=== PATIENT | male | born 1950 | race Caucasian/White ===

== ENCOUNTER 2017-05-09 11:51 | Emergency (ER) | payer BC, MEDICARE, SELFPAY ==
[2017-05-09 12:24] VITALS: BP 152/95; PULSE 128; RESP 20; TEMP 39.3; O2SAT 96; BMI 30.7
[2017-05-09 12:32] LABS: UTC Influenza A Antigen Negative (Negative); UTC Influenza B Antigen Negative (Negative)
--- NOTE | 2017-05-09 13:13 | HMH.EDUTC ---
[facility] – [place] Disposition Clinical Impression: Influenza-like illness Disposition: Home, Self-Care Condition on Discharge: Good Instructions: DI for Influenza -- Adult Additional Instructions: * Although your flu test was negative, I really feel you symptoms and exam are consistent with the flu. Based on your other health history, Start Tamiflu today if you are going to take it. Discussed risks and possible benefits. * Lots of rest * Increase fluids, water, gatorade, powerade, pedialyte if infant/toddler/child * Monitor Temp. Tylenol every 4 hours as needed no more then 5 times a day or 4000mg in 24 hours and/or ibuprofen every 6 hours as needed no more then 3200mg in 24 hours (as long as your primary care doctor has told you that it is ok to take both) for fever/aches/pain. ER if fever no less than 101 despite tylenol and Ibuprofen. Use caution with ibuprofen, motrin, aleve, naproxen if you are on plavix. Try sticking to just tylenol if it alone helps. * OTC cold/flu/sinus medication is ok but pick one. Do not take multiple different ones as they have similar ingredients and you can overdose on cold medication. Use caution when choosing due to your health history. Probably best that you use coricidin HBP products, preferably one without a fever dampproofer. * You (or your child) are contagious until no fever, aches, chills x 24 hours without medication for symptoms. Prescriptions: Oseltamivir Phosphate [Tamiflu 75mg Capsule] 75 mg PO BID #10 cap Referrals: Provider,Referral, MD [Primary Care Provider] - (IMMEDIATELY for new or worsening symptoms, improvement followed by suddenly feeling worse OR no noticeable improvement over the next 72 hours. 911 for difficulty breathing ) Time of Disposition: 13:16 Medical Decision Making Vital Signs: 05/09/17 12:24 Temperature 102.7 F H Temperature Source Temporal Artery Scan Pulse Rate [Left Brachial] 128 H Respiratory Rate 20 Blood Pressure [Left Arm] 152/95 Blood Pressure Mean [Left Arm] 114 Blood Pressure Source [Left Arm] Automatic Cuff Blood Pressure Position [Left Arm] Sitting 02 Sat by Pulse Oximetry 96 Oxygen Delivery Method Room Air - Lab Data Lab results reviewed: Yes: I reviewed the patient's lab results. Lab Results 05/09/17 12:30: Influenza Type A Ag Negative, Influenza Type B Ag Negative - Aly Inquiry Pt receiving controlled substance: No - Reevaluation(s) Reevaluation #1: Discussed CXR to rule out PNA w/ reports of so much coughing and fever. and pt declined. They really feel this is the flu and with lungs clear, agree to follow up for new or worsening symptoms. [facility] [place] HPI - General Stated complaint: Congestion Cough Time Seen by Provider: 05/09/17 13:00 Mode of Arrival: Ambulatory Source of Information: Patient Limitations: No Limitations Description of Symptoms (Recalled from Triage Doc. by RN): c/o cough and congestion HEENT Symptoms (Recalled from RN notes): No Resp Symptoms (Recalled from RN notes): Yes (cough and congestion) Skin Symptoms (Recalled from RN notes): No MS Symptoms (Recalled from RN notes): No Functional Status (Recalled from RN notes): n/a - History of Present Illness Provider Complaint: Here w/ concerned about the flu. Started late the day before yesterday. Suddenly started to have rhinorrhea, nasal congestion, nonprod cough. Has worsened to fatigue, chills, fever. No known sick contacts. Tylenol helps. picked up Coricidin but had ibuprofen in it so she didn't give it to him. Home meds include valsartan/hctz 160mg. metoprolol ER 100mg. plavix. vit D. Vit B. ASA - Related Data Previous Rx's Medication Instructions Recorded Oseltamivir Phosphate [Tamiflu 75 mg PO BID #10 cap 05/09/17 75mg Capsule] Allergies Allergy/AdvReac Type Severity Reaction Status Date / Time azithromycin [AZITHROMYCIN] Allergy Unknown Unverified 04/13/17 15:38 morphine [MORPHINE] Allergy Unknown Unverified 04/13/17 15:38 P
--- NOTE | 2017-05-09 13:17 | ED_ITS ---
[facility] [place] Disposition Clinical Impression: Influenza-like illness Disposition: Home, Self-Care Condition on Discharge: Good Instructions: DI for Influenza -- Adult Additional Instructions: * Although your flu test was negative, I really feel you symptoms and exam are consistent with the flu. Based on your other health history, Start Tamiflu today if you are going to take it. Discussed risks and possible benefits. * Lots of rest * Increase fluids, water, gatorade, powerade, pedialyte if infant/toddler/child * Monitor Temp. Tylenol every 4 hours as needed no more then 5 times a day or 4000mg in 24 hours and/or ibuprofen every 6 hours as needed no more then 3200mg in 24 hours (as long as your primary care doctor has told you that it is ok to take both) for fever/aches/pain. ER if fever no less than 101 despite tylenol and Ibuprofen. Use caution with ibuprofen, motrin, aleve, naproxen if you are on plavix. Try sticking to just tylenol if it alone helps. * OTC cold/flu/sinus medication is ok but pick one. Do not take multiple different ones as they have similar ingredients and you can overdose on cold medication. Use caution when choosing due to your health history. Probably best that you use coricidin HBP products, preferably one without a fever manager floral. * You (or your child) are contagious until no fever, aches, chills x 24 hours without medication for symptoms. Prescriptions: Oseltamivir Phosphate [Tamiflu 75mg Capsule] 75 mg PO BID #10 cap Referrals: Provider,Referral, MD [Primary Care Provider] - (IMMEDIATELY for new or worsening symptoms, improvement followed by suddenly feeling worse OR no noticeable improvement over the next 72 hours. 911 for difficulty breathing ) Time of Disposition: 13:16 Medical Decision Making Vital Signs: 05/09/17 12:24 Temperature 102.7 F H Temperature Source Temporal Artery Scan Pulse Rate [Left Brachial] 128 H Respiratory Rate 20 Blood Pressure [Left Arm] 152/95 Blood Pressure Mean [Left Arm] 114 Blood Pressure Source [Left Arm] Automatic Cuff Blood Pressure Position [Left Arm] Sitting 02 Sat by Pulse Oximetry 96 Oxygen Delivery Method Room Air - Lab Data Lab results reviewed: Yes: I reviewed the patient's lab results. Lab Results 05/09/17 12:30: Influenza Type A Ag Negative, Influenza Type B Ag Negative - Aly Inquiry Pt receiving controlled substance: No - Reevaluation(s) Reevaluation #1: Discussed CXR to rule out PNA w/ reports of so much coughing and fever. and pt declined. They really feel this is the flu and with lungs clear, agree to follow up for new or worsening symptoms. [facility] [place] HPI - General Stated complaint: Congestion Cough Time Seen by Provider: 05/09/17 13:00 Mode of Arrival: Ambulatory Source of Information: Patient Limitations: No Limitations Description of Symptoms (Recalled from Triage Doc. by RN): c/o cough and congestion HEENT Symptoms (Recalled from RN notes): No Resp Symptoms (Recalled from RN notes): Yes (cough and congestion) Skin Symptoms (Recalled from RN notes): No MS Symptoms (Recalled from RN notes): No Functional Status (Recalled from RN notes): n/a - History of Present Illness Provider Complaint: Here w/ concerned about the flu. Started late the day before yesterday. Suddenly started to have rhinorrhea, nasal congestion, nonprod cough. Has worsened to fatigue, chills, fever. No known sick contacts. Tylenol helps. picked up Coricidin but had ibuprofen in it so she didn't give it to him. H
[2017-05-09 13:25] VITALS: BP 143/84; PULSE 110; RESP 20; TEMP 38.3; O2SAT 97
== END 2017-05-09 13:27 | disposition home or self-care (01) ==
PROVIDERS: Emergency Provider Nurse Practitioner Family
DX: J10.1 Influenza due to other identified influenza virus with other respiratory manifestations (principal); I25.10 Atherosclerotic heart disease of native coronary artery without angina pectoris; I10 Essential (primary) hypertension; I25.2 Old myocardial infarction
CPT/HCPCS: 87804; 99202

== ENCOUNTER → 2017-06-02 11:28 | Outpatient (CLI) | payer BC, MEDICARE, SELFPAY ==
--- NOTE | 2017-06-02 11:37 | XR_ITS ---
XR chest 2V HISTORY: ITS.REASON: RALES 1/4 WAY UP RT POSTERIOR CHEST WALL ORDERING PHYSICIAN: TRINO Galeano PATIENT AGE: 66 years COMPARISON: 02/02/2017 FINDINGS: The cardiomediastinal silhouette and pulmonary vascularity are within normal limits. There is mild bronchial thickening with patchy density in the right infrahilar region suggesting an area of atelectasis. There is some nodularity in the infrahilar region on the lateral view nonspecific. Coronary artery calcifications also noted. Bone plate is present over the lower cervical spine IMPRESSION:. 1. Right infrahilar atelectasis or infiltrate with bronchial thickening consistent with bronchitis. 2. Nodular opacity in the infrahilar region on the lateral view. Follow-up suggested to confirm stability. 3. Coronary artery disease
== END ==
PROVIDERS: PCP Family Medicine; Visit Provider Physician Assistant
DX: R09.89 Other specified symptoms and signs involving the circulatory and respiratory systems (principal)
CPT/HCPCS: 71046

== ENCOUNTER → 2017-09-14 14:10 | Outpatient (CLI) | payer BC, SELFPAY ==
--- NOTE | 2017-09-14 14:24 | XR_ITS ---
EXAM: XR lumbar spine min 4V HISTORY: ITS.REASON: LUMBAGO WITH BILAT SCIATICA ORDERING PHYSICIAN: Luis Swanson MD PATIENT AGE: 67 years COMPARISON: None FINDINGS: There is normal alignment. There has been prior fusion at L4-L5 with posterior ventricular screws which are in good alignment. Disc spacer is present at that level. Small anterior osteophytes are present at L2 and L3. No fracture or dislocation. There is mild degenerative disc disease at L2-L3. Facet hypertrophic changes are noted at L4-L5 and L5-S1. There is a 17 mm calcific density to the left of L2 consistent with a renal stone. IMPRESSION: 1. Postsurgical change with lumbar spondylosis. No acute finding. 2. 17 mm left renal calculus
== END ==
PROVIDERS: PCP Family Medicine; Visit Provider Family Medicine
DX: M54.42 Lumbago with sciatica, left side (principal); M54.41 Lumbago with sciatica, right side
CPT/HCPCS: 72110

== ENCOUNTER → 2018-01-21 13:26 | Outpatient (CLI) | payer BC, SELFPAY ==
--- NOTE | 2018-01-21 13:27 | CA_ITS ---
PROCEDURE: 2-D M-mode and color Doppler study INDICATIONS FOR THE TEST: Chest pain COPD Heart Murmur Tobacco Smoking Palpitations Fatigue Syncope Edema HypertensionXDiabetes Mellitus Rheumatic Fever SOB MARIE Obesity HyperlipidemiaX Family History HD Additional History ISCHEMIC CM PATIENT INFORMATION HEIGHT: 71 WEIGHT:217 GENDER: Male B/P:168/96 2-D/M-MODE INTERPRETATION: 2-D MEASUREMENTS OBSERVED VALUES IN CMS Right Ventricular Dimension (RVDd) 2.0 Interventricular Septum (Thickness)(IVsd) .9 Left Ventricular Internal Dimensions(LVIDd) 5.9 Left Ventricular Posterior Wall (Thickness)(LVPWd) .9 Aortic Root 3.5 Aortic Cusp Separation 1.8 Left Atrial Dimensions (LAD) 3.6 2D 1. Left atrium is mildly enlarged, left ventricle is mildly dilated, visually estimated ejection fraction approximately 40%, there is marked hypokinesis involving the basal septum, inferior and posterobasal wall. 2. The right atrium and right ventricle are normal size and contractility. 3. The aortic valve is minimally thickened and fibrosed. 4. The mitral valve has mitral calcification, leaflets are minimally thickened. 5. The tricuspid valve are grossly normal. 6. The pulmonic valve is poorly visualized. 7. No significant pericardial effusion noted. DOPPLER INTERROGATION: Doppler interrogation of the aortic, mitral and tricuspid valvular presence of mild mitral and tricuspid regurgitation, tricuspid regurgitant velocity is insufficient calculation right ventricular systolic pressure, diastolic parameters are inconclusive. CONCLUSION: 1. Mildly enlarged left atrium, dilated left ventricle, reduced left ventricular systolic function, visually estimated ejection fraction of 40% with multiple segmental wall motion abnormality described above, diastolic parameters are inconclusive. 2. Mild mitral and tricuspid regurgitation 3. No significant pericardial effusion noted.
== END ==
PROVIDERS: PCP Family Medicine; Visit Provider Internal Medicine
DX: I25.5 Ischemic cardiomyopathy (principal); I25.10 Atherosclerotic heart disease of native coronary artery without angina pectoris; E78.4 Other hyperlipidemia; I11.9 Hypertensive heart disease without heart failure; E66.09 Other obesity due to excess calories
CPT/HCPCS: 93306

== ENCOUNTER → 2018-10-18 11:42 | Outpatient (CLI) | payer BC, SELFPAY ==
[2018-10-18 12:09] LABS: Basophils % 0.2 % (0.1-2.0); Eosinophils # 0.2 K/mm3 (0.0-0.4); Eosinophils % 1.4 % (0.1-12.0); Hematocrit 52.7 % (42.0-52.0); Lymphocytes # 0.7 K/mm3 (0.7-4.5); Lymphocytes % 5.8 % (10-50); Mean Corpuscular HGB Conc 32.2 g/dL (31.8-35.4); Mean Corpuscular Volume 96.2 fl (80-94); Mean Platelet Volume 7.4 fl (7.4-10.4); Monocytes # 0.9 K/mm3 (0.1-1.0); Monocytes % 7.5 % (1.7-9.3); Neutrophils # 10.3 K/mm3 (1.8-7.8); Neutrophils % 85.1 % (37.0-80.0); Platelet Count 264 K/mm3 (142-424); Red Blood Count 5.48 M/mm3 (4.60-6.20); White Blood Count 12.1 K/mm3 (4.8-10.8)
[2018-10-18 12:22] LABS: MANUAL DIFFERENTIAL MANUAL DIFFERENTIAL (MANUAL DIFF)
--- NOTE | 2018-10-18 12:26 | XR_ITS ---
XR chest 2V HISTORY: ITS.REASON: COUGH ORDERING PHYSICIAN: Luis Swanson MD PATIENT AGE: 68 years COMPARISON: None FINDINGS: The cardiomediastinal silhouette and pulmonary vascularity are within normal limits. There is a several centimeter ill-defined density with subtle air bronchograms involving posterior segment right upper lobe. The remainder of the lung west are clear. There is evidence of surgery involving lower cervical spine.. No acute bony abnormalities. IMPRESSION: Superior segment right lower lobe alveolar consolidation. Correlate to rule out pneumonia.
[2018-10-18 12:38] LABS: Anion Gap 16.1 mEq/L (5-15); Blood Urea Nitrogen 23 mg/dL (7-18); Calcium 8.5 mg/dL (8.5-10.1); Carbon Dioxide 27 mmol/L (21.0-32.0); Chloride 98 mmol/L (98-107); Estimated Glomerular Filt Rate 47 ml/min (>60); GFR (African American) 56 ML/MIN (>60); Glucose 95 mg/dL (74-106); Potassium 4.1 mmoL/L (3.5-5.1); Sodium 137 mmol/L (136-145)
[2018-10-18 14:27] LABS: Lymphocytes % 4 % (10-50); Monocytes % 7 % (2-9); Neutrophils % 86 % (42-76); Platelet Estimate Normal; RBC Morphology Normal; Total Cells Counted 100
== END ==
PROVIDERS: PCP Family Medicine; Visit Provider Family Medicine
DX: R50.9 Fever, unspecified (principal); R05 Cough
CPT/HCPCS: 36415; 71046; 80048; 85007; 85025

== ENCOUNTER 2020-08-23 10:00 | Outpatient (RCR) | payer MEDICARE, SELFPAY ==
--- NOTE | 2020-07-05 11:32 | HMH.PTOPEV ---
PT Outpatient Evaluation Rehab PT Outpatient Evaluation Start: 07/05/20 11:17 Freq: Status: Active Protocol: Document 07/05/20 11:18 JACINTO (Rec: 07/05/20 11:32 JACINTO [id number]) Electronically Signed By Nic Valiente, PT 07/05/20 11:18 Outpatient Therapy Subjective History Subjective History Patient is a 69 year old male presenting to outpatient PT with reports of BLE muscular tightness/pain that has progressively gotten worse over the past 2 months. Patient reports symptoms specific to B distal hamstrings and proximal gastroc mm. Patient reports hx of multiple lumbar spine surgeries and use of statins approx 15 years ago. Other comorbidities include hx of CVA. Chief Complaint Pain,Stiff Symptom Type Sharp Symptoms Relieved By Rest/Positioning,Prescription Meds Symptoms Aggravated By Standing,Physical Activity, Walking Prior Functional Limitations None Current Functional Limitations Standing,Squatting,Recreation Activity,Walking,Stairs, Balance,Bending/Stooping Symptom Description Intermittent Level of pain today (0-10) 5 Pain scale - at its best (0-10) 0 Pain scale - at its worst (0-10) 5 Hip/Knee Eval Gait Observation General Gait Pattern Observation Wide Based Gait Assistive Device Assistive Devices None / NA Palpation Tenderness bilateral Knee Palpation Finding Tenderness Knee Palpation Overall Comment B distal HS/prox gastroc 3/4 MMT Hip Strength Reason Not Measured WFL Knee Strength Reason Not Measured WFL ROM Hip Flexion w/Knee Flexed Active Range 90 of Motion (degrees) Hip Abduction Active Range of Motion ( WNL degrees) Knee Extension Active Range of Motion ( -5 degrees) Knee Extension Passive Range of Motion ( -2 degrees) Knee Flexion Active Range of Motion ( WNL degrees) DTR Rt Patellar 2+ Lt Patellar 2+ Rt Ankle 2+ Lt Ankle 2+ Special Tests Hip Chance Test Positive Left,Positive Right Hip Piriformis Test Positive Left,Positive Right Hip 90-90 Straight Leg Raise Test Positive Left,Positive Rig
== END 2020-08-23 10:05 | disposition home or self-care (01) ==
LOC: PT 10:00
PROVIDERS: PCP Family Medicine; Visit Provider Family Medicine
DX: M79.661 Pain in right lower leg (principal); M79.662 Pain in left lower leg; M54.5 Low back pain; Z98.890 Other specified postprocedural states
CPT/HCPCS: 20561; 97010; 97014; 97110; 97140; 97163; 97164; 97530; G0283

== ENCOUNTER → 2021-06-17 09:22 | Outpatient (CLI) | payer MEDICARE, SELFPAY ==
--- NOTE | 2021-06-17 09:34 | XR_ITS ---
FINAL REPORT CLINICAL HISTORY: INJURY OF LEFT ANKLE, INITIAL ENCOUNTER; patient returning to office today FINDINGS: LEFT ANKLE Three views demonstrate no acute fracture or dislocation. The joint spaces appear normal. The visualized bony structures are well aligned. There is prominent soft tissue swelling overlying the lateral malleolus. The mortise appears intact. IMPRESSION: Prominent soft tissue swelling without acute fracture. Reviewed, Interpreted and Dictated by Alfa Murrieta MD Transcribed by Aleah Ramirez Authenticated by Alfa Murrieta MD on 06/17/2021 11:15:54 [facility]
== END ==
PROVIDERS: PCP Family Medicine; Visit Provider Family Medicine
DX: S99.912A Unspecified injury of left ankle, initial encounter (principal)
CPT/HCPCS: 73610

== ENCOUNTER 2021-12-06 11:11 | Emergency (ER) | payer MEDICARE, SELFPAY ==
--- NOTE | 2021-12-06 11:30 | HMH.EDUTC ---
[facility] – [place] Disposition Clinical Impression: Infected sebaceous cyst of skin, Bronchitis Sinusitis Qualifiers: Sinusitis location: unspecified location Chronicity: acute Recurrence: non-recurrent Qualified Code(s): J01.90 - Acute sinusitis, unspecified Disposition: Home, Self-Care Condition on Discharge: Good Instructions: DI for Sinusitis, DI for Skin Abscess Additional Instructions: Apply warm wet compresses to the affected sites three or four times per day for 15 minutes as tolerated. Take the antibiotics as directed. Follow up with your regular doctor. GO TO THE ER FOR ANY WORSENING SYMPTOMS OR CONCERNS Drink plenty of fluids. Take tylenol for pain or fever. Take the medications as directed. Follow up with your regular doctor. GO TO THE ER FOR ANY WORSENING SYMPTOMS Quarantine until you know the results of your covid-19 test. Notify your school or workplace of your results and follow their instructions regarding return to work/school. Prescriptions: Mupirocin [Bactroban 2% Ointment 22gm tube] 1 applicatio TP TID 7 Days #1 gm Transmission Status: Received by [facility] Benzonatate [Benzonatate 100mg cap] 100 mg PO TIDP PRN #30 cap PRN Reason: Cough Transmission Status: Received by [facility] methylPREDNISolone [Medrol] 4 mg PO DIRECTED 6 Days #21 packet Transmission Status: Received by [facility] Cefdinir [Omnicef 300mg Capsule] 300 mg PO BID #20 cap Transmission Status: Received by [facility] Referrals: Luis Swanson MD [Primary Care Provider] - Time of Disposition: 12:54 Medical Decision Making - Medical Records Medical records reviewed: No: I reviewed the patient's medical records. - Aly Inquiry Pt receiving controlled substance: No Vital Signs: 12/06/21 12:03 12/06/21 12:58 Temperature 98.3 F 98.3 F Temperature Source Oral Pulse Rate 84 Pulse Rate [Left] 84 Respiratory Rate 16 16 Blood Pressure 120/77 Blood Pressure [Right Arm] 120/77 Blood Pressure Mean [Right Arm] 91 02 Sat by Pulse Oximetry 96 [facility] [place] HPI - General Stated complaint: possible spider bite, sinus congestion Time Seen by Provider: 12/06/21 11:30 - History of Present Illness Provider Complaint: He is here with 2 complaints. HIs first is that he is having sinus congestion and sinus drainage for the past 5 days. He has a cough, but he denies significant chest congestion or shortness of breath. He also has a red, tender area on the back of his right shoulder near the base of his posterior neck. He states that he has a history of a cyst in that area that occasionally gets infected. He states that when that occurs he usually has to take antibiotics to get it better. - Related Data Home Medications Medication Instructions Recorded Confirmed aspirin 81 mg tablet,delayed 81 mg PO DAILY tab 07/05/17 08/27/21 release cholecalciferol (vitamin D3) 25 1,000 unit PO DAILY cap 07/05/17 08/27/21 mcg (1,000 unit) capsule metoprolol succinate 100 mg 100 mg PO DAILY tab 07/05/17 08/27/21 tablet,extended release 24 hr valsartan 80 mg tablet 80 mg PO DAILY tab 07/05/17 08/27/21 evolocumab 140 mg/mL subcutaneous 140 mg SUB-Q Q2W 07/06/17 08/27/21 pen injector Previous Rx's Medication Instructions Recorded Benzonatate [Benzonatate 100mg 100 mg PO TIDP PRN #30 cap 12/06/21 cap] Cefdinir [Omnicef 300mg Capsule] 300 mg PO BID #20 cap 12/06/21 Mupirocin [Bactroban 2% Ointment 1 applicatio TP TID 7 Days #1 gm 12/06/21 22gm tube] methylPREDNISolone [Medrol] 4 mg PO DIRECTED 6 Days #21 12/06/21 packet Allergies Allergy/AdvReac Type Severity Reaction Status Date / Time azithromycin [AZITHROMYCIN] Allergy Unknown Verified 12/06/21 12:06 morphine [MORPHINE] Allergy Unknown Verified 12/06/21 12:06 Penicillins [PENICILLINS] Allergy Unknown Verified 12/06/21 12:06 [facility] History - Hepatitis A Screen Atte
[2021-12-06 12:03] VITALS: BP 120/77; PULSE 84; RESP 16; TEMP 36.8; O2SAT 96; BMI 27.2
[2021-12-06 12:58] VITALS: BP 120/77; PULSE 84; RESP 16; TEMP 36.8
== END 2021-12-06 13:05 | disposition home or self-care (01) ==
PROVIDERS: Emergency Provider Nurse Practitioner Family; PCP Family Medicine
DX: U07.1 COVID-19 (principal); L72.0 Epidermal cyst; J01.90 Acute sinusitis, unspecified; J40 Bronchitis, not specified as acute or chronic
CPT/HCPCS: 10060; 87070; 87077; 87186; 87205; 99213; C9803; G0463; U0003; U0005

== ENCOUNTER → 2022-09-01 11:14 | Outpatient (POV) | payer MEDICARE, SELFPAY | PROVIDERS: Visit Provider Dermatology | DX: Z00.00 Encounter for general adult medical examination without abnormal findings (principal) ==

== ENCOUNTER → 2022-09-30 07:30 | Outpatient (CLI) | payer MEDICARE, SELFPAY ==
--- NOTE | 2022-09-30 07:32 | MR_ITS ---
FINAL REPORT TECHNIQUE: Multiplanar MR without gadolinium enhancement CLINICAL HISTORY: LUMBAGO WITH SCIATICA, SPONDYLOSIS, DDD HX MULTIPLE BACK SURGERIES, BACK PAIN, TROUBLE WALKING FINDINGS: Sagittal images show normal vertebral height. There is mild retrolisthesis of L5 on S1. Marrow edema is mildly heterogeneous in a pattern suggestive of red marrow predominance which can be seen with smoking or polycythemia most commonly. There is probable severe hydronephrosis and atrophy of the visualized left kidney. CT may be considered if not previously evaluated. T12-L1: No significant spinal canal stenosis or neural foraminal narrowing. L1-2: No significant spinal canal stenosis or neural foraminal narrowing. L2-3: Mild annular disc bulge with moderate facet arthropathy. No significant canal stenosis or neural foraminal narrowing. L3-4: Moderate annular disc bulge and facet arthropathy. Moderate central canal stenosis and moderate bilateral neural foraminal narrowing. L4-5: Postoperative changes from left laminotomy and fusion. No significant central canal stenosis. Mild bilateral neural foraminal narrowing. L5-S1: Minimal annular disc bulge with mild facet arthropathy. No significant central canal stenosis. Moderate bilateral neural foraminal narrowing. IMPRESSION: Moderate diffuse degenerative changes with mild central canal stenosis at L3-4 and multilevel neural foraminal narrowing. Reviewed, Interpreted and Dictated by Roney Miller MD Transcribed by Dori Caldwell Authenticated and [facility]
== END ==
PROVIDERS: PCP Family Medicine; Visit Provider Family Medicine
DX: M51.36 Other intervertebral disc degeneration, lumbar region (principal); M47.816 Spondylosis without myelopathy or radiculopathy, lumbar region; M54.41 Lumbago with sciatica, right side; M54.42 Lumbago with sciatica, left side
CPT/HCPCS: 72148; 76376

== ENCOUNTER 2022-10-10 04:21 | Emergency (ER) | payer MEDICARE, SELFPAY ==
[2022-10-10] VITALS (7 sets, daily range): BP systolic 108–175; BP diastolic 59–109; PULSE 74–87; RESP 16–20; TEMP 36.7; O2SAT 94–99; BMI 30.7
--- NOTE | 2022-10-10 04:36 | CT_ITS ---
PROCEDURE INFORMATION: Exam: CT Abdomen And Pelvis With Contrast Exam date and time: 10/10/2022 5:16 AM Age: 72 years old Clinical indication: Injury or trauma; Fall TECHNIQUE: Imaging protocol: Computed tomography of the abdomen and pelvis with contrast. Radiation optimization: All CT scans at this facility use at least one of these dose optimization techniques: automated exposure control; mA and/or kV adjustment per patient size (includes targeted exams where dose is matched to clinical indication); or iterative reconstruction. Contrast material: ISOVUE; Contrast volume: 75 ml; Contrast route: IV; REPORTING DATA: Count of CT and Cardiac NM exams in prior 12 months: This patient has received 0 known CTs and 0 known cardiac nuclear medicine studies in the 12 months prior to the current study. COMPARISON: ABDPELW/O CT ABD PELVIS W/O CONTRAST 09/25/2016 9:06 AM FINDINGS: Coronary arteries: Coronary artery calcifications. Liver: No acute abnormality. Liver appears intact. Gallbladder and bile ducts: No acute abnormality. No calcified stones. No ductal dilation. Pancreas: No acute abnormality. No ductal dilation. Spleen: No acute abnormality. Spleen appears intact. Punctate splenic calcified granulomas. Adrenal glands: No significant or acute abnormality. Kidneys and ureters: Kidneys appear intact. Left renal cortical atrophy, scarring and nephrolithiasis with severe hydronephrosis secondary to a 17 x 10 mm calculus and adjacent 7 x 4 mm calculus at the left UPJ. Moderate right hydronephrosis secondary to a 6 x 5 mm calculus and adjacent tiny 4 mm calculus in the mid right ureter as well as additional tiny 3 mm distal ureteral calculus just above the right UVJ and 4 mm calculus at the right distal ureteral orifice. Redemonstrated incidental simple appearing bilateral renal cysts including large 9.7 cm lateral left renal lower pole cyst. Approximately 3.2 cm intermediate density posterior right renal cortical lesion, previously 2.3 cm. Stomach and bowel: No significant large or small bowel distention. No evidence of diverticulitis. Appendix: Grossly normal nondilated visualized appendix. Intraperitoneal space: No significant fluid collection. No free air. Vasculature: Atherosclerotic vascular calcification. No aortic aneurysm. Lymph nodes: No enlarged lymph nodes. Urinary bladder: Small calculus protrudes into the right bladder base. Nondistended urinary bladder. Reproductive: Mildly prominent prostate. Bones/joints: No acute osseous abnormality. Previous L4-L5 discectomy and fusion with metallic hardware in place. Soft tissues: No significant soft tissue abnormalities. Incidental small lower anterior left chest wall subcutaneous cyst. IMPRESSION: 1. No evidence of acute traumatic injury. 2. Left renal cortical atrophy, scarring and nephrolithiasis with severe hydronephrosis secondary to a 17 x 10 mm calculus and adjacent 7 x 4 mm calculus at the left UPJ. 3. Moderate right hydronephrosis secondary to a 6 x 5 mm calculus and adjacent tiny 4 mm calculus in the mid right ureter as well as additional tiny 3 mm distal ureteral calculus just above the right UVJ and 4 mm calculus at the right distal ureteral orifice. 4. Approximately 3.2 cm intermediate density posterior right renal cortical lesion, previously 2.3 cm. Differential diagnosis includes complex or hyperdense cyst versus indolent right renal mass. Consider nonemergent follow-up renal ultrasound or MRI for further evaluation. 5. Atherosclerotic vascular disease including coronary artery disease.
--- NOTE | 2022-10-10 04:36 | CT_ITS ---
PROCEDURE INFORMATION: Exam: CT Cervical Spine Without Contrast Exam date and time: 10/10/2022 5:05 AM Age: 72 years old Clinical indication: Injury or trauma; Fall TECHNIQUE: Imaging protocol: Computed tomography of the cervical spine without contrast. Radiation optimization: All CT scans at this facility use at least one of these dose optimization techniques: automated exposure control; mA and/or kV adjustment per patient size (includes targeted exams where dose is matched to clinical indication); or iterative reconstruction. REPORTING DATA: Count of CT and Cardiac NM exams in prior 12 months: This patient has received 0 known CTs and 0 known cardiac nuclear medicine studies in the 12 months prior to the current study. COMPARISON: CR (CHEST PA, CHEST, CHEST PA) 10/18/2018 12:31 PM FINDINGS: Bones/joints: Previous C6 corpectomy and fusion with C6 graft material and anterior plate and screws in place C5-C7. No evidence of acute fracture or subluxation. Multilevel spondylosis with degenerative endplate spurring. Bilateral facet, uncovertebral and atlantoaxial joint arthrosis with marginal hypertrophic bony spurring. 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 Multilevel findings: Multilevel disc space narrowing and posterior disc osteophyte complexes. Dpvh-of-txjgtthp spinal stenosis and moderate to severe multilevel bilateral foraminal stenosis. Lungs: No significant or acute abnormality of the visualized lung apices. Soft tissues: No significant soft tissue abnormalities. IMPRESSION: 1. No evidence of acute fracture or subluxation. 2. Multilevel spondylosis, diffuse cervical arthrosis and degenerative changes as described with previous C6 corpectomy and fusion.
--- NOTE | 2022-10-10 04:36 | CT_ITS ---
PROCEDURE INFORMATION: Exam: CT Thoracic Spine Without Contrast Exam date and time: 10/10/2022 5:08 AM Age: 72 years old Clinical indication: Injury or trauma; Fall TECHNIQUE: Imaging protocol: Computed tomography of the thoracic spine without contrast. Radiation optimization: All CT scans at this facility use at least one of these dose optimization techniques: automated exposure control; mA and/or kV adjustment per patient size (includes targeted exams where dose is matched to clinical indication); or iterative reconstruction. REPORTING DATA: Count of CT and Cardiac NM exams in prior 12 months: This patient has received 0 known CTs and 0 known cardiac nuclear medicine studies in the 12 months prior to the current study. COMPARISON: CT CERVICAL SPINE WO CON 10/10/2022 5:05 AM FINDINGS: Bones/joints: No evidence of acute fracture or subluxation. Multilevel small mid and lower thoracic endplate indentations consistent with Schmorl's nodes with otherwise grossly normal vertebral body height. 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 Mild thoracic kyphosis, spondylosis and degenerative bony changes. Lower cervical spine postsurgical changes as previously described. Discs/Spinal canal/Neural foramina: No acute findings. No significant spinal stenosis. Soft tissues: No significant soft tissue abnormalities. IMPRESSION: 1. No evidence of acute fracture or subluxation. 2. 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 3. Mild thoracic kyphosis, spondylosis and degenerative bony changes.
--- NOTE | 2022-10-10 04:36 | CT_ITS ---
PROCEDURE INFORMATION: Exam: CT Lumbar Spine Without Contrast Exam date and time: 10/10/2022 5:12 AM Age: 72 years old Clinical indication: Injury or trauma; Fall TECHNIQUE: Imaging protocol: Computed tomography of the lumbar spine without contrast. Radiation optimization: All CT scans at this facility use at least one of these dose optimization techniques: automated exposure control; mA and/or kV adjustment per patient size (includes targeted exams where dose is matched to clinical indication); or iterative reconstruction. REPORTING DATA: Count of CT and Cardiac NM exams in prior 12 months: This patient has received 0 known CTs and 0 known cardiac nuclear medicine studies in the 12 months prior to the current study. COMPARISON: MR LUMBAR SPINE WO CON 09/30/2022 7:30 AM FINDINGS: Bones/joints: No evidence of acute fracture or subluxation. Grossly normal lumbar alignment and vertebral body height. Previous L4-L5 left laminectomy, discectomy and anterior and posterior fusion with posterior fusion rods and pedicle screws in place. Multilevel spondylosis with degenerative endplate spurring. Lumbar spine bilateral facet hypertrophy. Multilevel findings: L3-L4 disc space narrowing, diffuse disc bulging and bilateral facet hypertrophy with moderate to severe spinal stenosis. Fused L4-L5 disc level. Soft tissues: No significant soft tissue abnormalities. Other findings: Abdomen and pelvis findings reported separately. IMPRESSION: 1. No evidence of acute fracture or subluxation. 2. Multilevel spondylosis and lower lumbar degenerative and postsurgical changes as described with previous L4-L5 discectomy and fusion.
[2022-10-10 04:48] LABS: Chloride 106 mmol/L (98-107); Potassium 4.1 mmoL/L (3.5-5.1); Sodium 141 mmol/L (136-145)
--- NOTE | 2022-10-10 04:48 | PC.NURSE ---
Pt provided with urinal and advised to give urine sample if able.
[2022-10-10 04:50] LABS: Amylase 71 U/L (30-110); Basophils % 0.3 % (0.1-2.0); Blood Urea Nitrogen 18 mg/dl (9-20); Creatinine Clearance Estimated 61 mL/min (50-200); Eosinophils % 7.3 % (0.1-12.0); Estimated Glomerular Filt Rate 46 ml/min (>60); GFR (African American) 56 ML/MIN (>60); Hematocrit 54.5 % (42.0-52.0); Hemoglobin 17.6 g/dL (14.1-18.0); Lipase 53 U/L (23-300); Lymphocytes # 1.8 K/mm3 (0.7-4.5); Lymphocytes % 13.2 % (10-50); Mean Corpuscular HGB Conc 32.3 g/dL (31.8-35.4); Mean Corpuscular Hemoglobin 30.9 pg (27.0-31.2); Mean Corpuscular Volume 95.8 fl (80-94); Mean Platelet Volume 8.1 fl (7.4-10.4); Monocytes # 0.9 K/mm3 (0.1-1.0); Monocytes % 6.4 % (1.7-9.3); Neutrophils # 9.9 K/mm3 (1.8-7.8); Neutrophils % 72.9 % (37.0-80.0); Platelet Count 266 K/mm3 (142-424); Red Blood Count 5.68 M/mm3 (4.60-6.20); Red Cell Distribution Width 13.6 % (11.5-17.5); White Blood Count 13.5 K/mm3 (4.8-10.8)
[2022-10-10 04:51] LABS: Alanine Aminotransferase 32 U/L (12-78); Albumin Level 4.2 g/dl (3.5-5.0); Albumin/Globulin Ratio 1.5 (1.1-1.8); Alkaline Phosphatase 124 U/L (38-126); Aspartate Amino Transferase 46 U/L (17-59); Bilirubin,Total 0.7 mg/dl (0.2-1.3); Globulin 2.8 g/dL (1.3-3.2); Glucose 140 mg/dl (74-100)
[2022-10-10 04:55] LABS: Anion Gap 17.1 mEq/L (5-15); Carbon Dioxide 22 mmol/L (22.0-30.0)
--- NOTE | 2022-10-10 04:57 | PC.NURSE ---
Pt gone to RAD via stretcher
--- NOTE | 2022-10-10 05:08 | PC.NURSE ---
Pt returned from RAD
--- NOTE | 2022-10-10 06:31 | XR_ITS ---
PROCEDURE INFORMATION: Exam: XR Pelvis Exam date and time: 10/10/2022 6:34 AM Age: 72 years old Clinical indication: Injury or trauma; Fall; Blunt trauma (contusions or hematomas); Does not apply; Pelvic region TECHNIQUE: Imaging protocol: Radiologic exam of the pelvis. Views: 1 or 2 view. COMPARISON: CT ABDOMEN PELVIS W CON 10/10/2022 5:16 AM FINDINGS: Bones/joints: No acute osseous abnormality. No evidence of acute fracture or dislocation. Lumbar spine findings reported separately. Soft tissues: No significant soft tissue abnormalities. IMPRESSION: No evidence of acute fracture or dislocation.
--- NOTE | 2022-10-10 06:31 | XR_ITS ---
PROCEDURE INFORMATION: Exam: XR Chest Exam date and time: 10/10/2022 6:34 AM Age: 72 years old Clinical indication: Injury or trauma; Fall; Blunt trauma (contusions or hematomas) TECHNIQUE: Imaging protocol: Radiologic exam of the chest. Views: 1 view. COMPARISON: CR (CHEST PA, CHEST, CHEST PA) 10/18/2018 12:31 PM FINDINGS: Lungs: No significant or acute findings. No consolidation. Pleural spaces: No significant costophrenic angle blunting. No pneumothorax. Heart/Mediastinum: Heart size is normal. Vasculature: Mild atherosclerotic tortuosity of the thoracic aorta. Bones/joints: Previous lower cervical spine fusion with metallic hardware in place. IMPRESSION: No acute abnormality demonstrated.
--- NOTE | 2022-10-10 06:33 | PC.NURSE ---
Dr. Kumar at
--- NOTE | 2022-10-10 06:37 | [facility].EDFALL ---
Discharge Plan Disposition Patient Disposition: Home, Self-Care Chief Complaint: Fall Prescriptions Prescriptions: No Action valsartan [Diovan] 80 mg tablet 80 mg PO DAILY metoprolol succinate [Toprol XL] 100 mg tablet extended release 24 hr 100 mg PO DAILY cholecalciferol (vitamin D3) 1,000 unit capsule 1,000 unit PO DAILY evolocumab [Repatha SureClick] 140 mg/mL pen injector 140 mg SUB-Q Q2W clopidogrel 75 mg tablet 75 mg PO DAILY gabapentin 300 mg capsule 300 mg PO BID mupirocin 22 GM ointment 1 applicatio TP TID 7 Days Qty: 1 0RF Referrals Follow up/Referrals: Luis Swanson MD [Primary Care Provider] - See instructions Jaren Goddard MD [Referring] - See instructions Clinical Impressions Clinical Impression: Cervical sprain, Lumbar back sprain, Hydronephrosis Instructions Patient Instructions: DI for Low Back Pain, DI for Kidney Stones Discharge ED Provider: José (ED)Naseem HPI General Chief Complaint: Fall Stated Complaint: AO 10/10/22 0100 lower back pain,fell down steps Time Seen by Provider: 10/10/22 06:00 Mode of Arrival: Wheelchair Source of Information: Patient, Spouse and Medical Record Limitations: No Limitations Description of Symptoms (Recalled from ER Triage Doc. by RN): pt states he fell down about five outdoor steps on 10/09 around 1300. pt reports he was tugging on a water hose and lost his balance causing the fall. pt denies LOC. pt c/o R lower back pain 12/03. pt states he is on plavix. History of Present Illness HPI Narrative: pt slipped and fell yesterday and has assoc back pain- no loc and pt has hx of back problems - recent mri of back - has hx of renal stones complaint: fall Onset (ago): day(s) Fall from: standing Place fall occurred: home Loss of consciousness: none Prolonged down time: no Symptoms prior to fall: none Context: tripped/slipped Location of injury: neck and back Severity: moderate Associated symptoms (after fall): denies Related Data Home Medications Medication Instructions Recorded Confirmed cholecalciferol (vitamin D3) 25 1,000 unit PO DAILY 07/05/17 10/06/22 mcg (1,000 unit) capsule metoprolol succinate 100 mg 100 mg PO DAILY 07/05/17 10/06/22 tablet,extended release 24 hr (Toprol XL) valsartan 80 mg tablet (Diovan) 80 mg PO DAILY 07/05/17 10/06/22 evolocumab 140 mg/mL subcutaneous 140 mg SQ Q2W 07/06/17 10/06/22 pen injector (Anthony Sidhu) clopidogrel 75 mg tablet 75 mg PO DAILY 10/06/22 10/06/22 gabapentin 300 mg capsule 300 mg PO BID 10/06/22 10/06/22 Previous Rx's Medication Instructions Recorded mupirocin 2 % topical ointment 1 applicatio topical TID 7 days #1 12/06/21 g Allergies Allergy/AdvReac Type Severity Reaction Status Date / Time azithromycin [AZITHROMYCIN] Allergy Unknown Verified 10/10/22 04:50 Penicillins [PENICILLINS] Allergy Unknown Verified 10/10/22 04:50 cefdinir Allergy Verified 10/10/22 04:50 morphine [MORPHINE] AdvReac Unknown Nausea Verified 10/10/22 04:50 PFSH PFSH Disclaimer: The information contained in this section may have been updated after the patient was seen, as this information can be updated by other users. Medical History Coronary arteriosclerosis Hyperlipidemia Hypertensive heart disease without heart failure Obesity Social History Smoking Status: Never smoker alcohol intake: never substance use type: denies use current occupational status: employed Travel in the last 8 weeks: Inside the [place] ROS Obtained: Yes All systems reviewed & no additional complaints except as documented Physical Exam General General appearance: alert Head Head exam: normocephalic Eye Eye exam: Present PERRL and EOMI ENT ENT exam: Present mucous membranes moist Neck Neck exam: Present trachea midline and ten
--- NOTE | 2022-10-10 06:39 | PC.NURSE ---
[facility] At [facility]
--- NOTE | 2022-10-10 06:59 | PC.NURSE ---
Pt still unable to provide urine sample at this time
--- NOTE | 2022-10-10 07:21 | PC.NURSE ---
verbal order from MD for Tylenol #3 take home pack to be sent home with patient.
[2022-10-10 07:25] LABS: Microscopic, Urine URINE MICROSCOPIC (MICROSCOPIC)
[2022-10-10 07:44] LABS: Appearance,Urine CLOUDY (Clear); Bilirubin,Urine Negative (Negative); Blood, Urine 3+ (Negative); Color,Urine YELLOW (Yellow); Glucose,Urine (UA) Negative (Negative); Ketones,Urine Negative (Negative); Leukocyte Esterase,Urine 1+ (Negative); Nitrate,Urine Negative (Negative); PH,Urine 5.5 (5.0-8.5); Protein,Urine 1+ (Negative); Specific Gravity, Urine 1.025 (1.005-1.030)
[2022-10-10 07:46] LABS: Bacteria,Urine 1+ /lpf; RBC,Urine TNTC #/hpf (0-3)
== END 2022-10-10 07:51 | disposition home or self-care (01) ==
PROVIDERS: Emergency Provider Emergency Medicine; PCP Family Medicine
DX: M54.50 Low back pain, unspecified (principal); I25.10 Atherosclerotic heart disease of native coronary artery without angina pectoris; I11.9 Hypertensive heart disease without heart failure; E78.5 Hyperlipidemia, unspecified; E66.9 Obesity, unspecified; W10.9XXA Fall (on) (from) unspecified stairs and steps, initial encounter; Z79.02 Long term (current) use of antithrombotics/antiplatelets
CPT/HCPCS: 71045; 72125; 72128; 72131; 72170; 74177; 80053; 81001; 82150; 83690; 85025; 87086; 96361; 96374; 96375; 99285; J2405; Q9967

== ENCOUNTER → 2022-10-30 07:49 | Outpatient (CLI) | payer MEDICARE, SELFPAY | PROVIDERS: PCP Family Medicine; Visit Provider Physician Assistant | DX: I25.10 Atherosclerotic heart disease of native coronary artery without angina pectoris (principal); E66.9 Obesity, unspecified; E78.5 Hyperlipidemia, unspecified; I11.9 Hypertensive heart disease without heart failure; Z01.810 Encounter for preprocedural cardiovascular examination | CPT/HCPCS: 93306 ==

== ENCOUNTER → 2023-01-18 09:58 | Outpatient (POV) | payer MEDICARE, SELFPAY ==
[2023-01-18 11:04] VITALS: BP 128/69; PULSE 76; RESP 18; O2SAT 96; BMI 27.8
--- NOTE | 2023-01-18 11:16 | EXP.PAIN.OV ---
HPI Data of Consult Patient: new to practice Consult date: 01/18/23 Requesting Physician: Keysha Gibbons APRN Primary Care Provider: Luis Swanson MD Consult Narrative Reason for consult: Bilateral leg pain History of present illness: Mr. Greer is a 72 year old male who presents today as a new patient. He is a referral from Dr. Swanson's office. Today he rates his pain a 6 out of 10. Patient states all his pain is related to his bilateral lower extremities. Patient does describe this as a constant achy sensation that is worse with increased activity. He does state this is been going on for years and progressively worsened over time. He does state that his pain is made worse when he is up walking and that he has no pain when he sitting. Patient does state he frequently has to lean over things such as the sink or a shopping cart to find some relief. Patient does state that he has had 3 prior back surgeries including one on her cervical spine and 2 at his lumbar spine including a laminectomy. Patient does also state that he has recently had 3 different kidney surgeries related to 13 kidney stones. Patient does state that his leg pain interferes with his ability perform activities of daily living such as cooking and cleaning. He does use a cane to help with ambulation. Patient has tried undl-gxp-[id number] medications such as Tylenol along with heat and ice and topicals with minimal improvement. Patient is currently managed with gabapentin 300 mg twice a day and in the past has also tried tramadol 50 mg his Aly is [id number]. Its been reviewed and appropriate. Patient does have a history of heart issues including A-fib and is on Plavix daily. Patient does state that he has had 5 heart stents placed in the past. Patient does state that recently where he has had the kidney surgeries he did have to come off of his Plavix for 5 days. CC: Keysha Gibbons APRN [facility] Disclaimer: The information contained in this section may have been updated after the patient was seen, as this information can be updated by other users. Medical History (Updated 01/18/23 @ 11:20 by Keysha Gibbons APRN) Coronary arteriosclerosis Encounter for pre-operative cardiovascular clearance Hyperlipidemia Hypertensive heart disease without heart failure LV dysfunction Obesity Social History (Updated 01/18/23 @ 11:05 by Cathy Nicolas RN) Smoking Status: Never smoker alcohol intake: never substance use type: denies use current occupational status: employed Travel in the last 8 weeks: Inside the [place] Review of Systems Review of Systems Review of systems:: pertinent systems reviewed and negative unless documented below Review of systems (narrative): Review of Systems: General: No recent weight changes, no fever, no sleep disturbances Respiratory: No cough, no shortness of air, no recurring pulmonary infections Cardiovascular/peripheral vascular: No chest pain, no palpitations, no edema, no shortness of breath Gastrointestinal: No new onset incontinence, normal bowel movements reported Genitourinary: No new onset incontinence Musculoskeletal: Bilateral leg pain Psychiatric: [Normal mood/affect] Neurological: [Denies weakness in extremities], [denies balance issues] Meds Home Medications and Allergies Home Medications Medication Instructions Recorded Confirmed Type cholecalciferol (vitamin D3) 25 1,000 unit PO DAILY 07/05/17 10/29/22 History mcg (1,000 unit) capsule metoprolol succinate 100 mg 100 mg PO DAILY 07/05/17 10/29/22 History tablet,extended release 24 hr (Toprol XL) valsartan 80 mg tablet (Diovan) 80 mg PO DAILY 07/05/17 10/29/22 History evolocumab 140 mg/mL subcutaneous 140 mg SQ Q2W 07/06/17 10/29/22 History pen injector (Anthony Sidhu) mupirocin 2 % topical ointment 1 applicatio topical TID 7 days #1 12/06/21 10/29/22 Rx g clopidogrel 75 mg tablet 75 mg PO DAILY 10/06/22 10/29/22 History
== END ==
PROVIDERS: PCP Family Medicine; Visit Provider Nurse Practitioner Family
DX: M79.604 Pain in right leg (principal); M79.605 Pain in left leg; M48.062 Spinal stenosis, lumbar region with neurogenic claudication; M96.1 Postlaminectomy syndrome, not elsewhere classified
CPT/HCPCS: 99202; G0463

== ENCOUNTER → 2023-01-22 10:28 | Outpatient (CLI) | payer MEDICARE, SELFPAY ==
[2023-01-22 11:48] LABS: Blood Urea Nitrogen 29 mg/dl (9-20); Calcium 9.1 mg/dl (8.4-10.2); Carbon Dioxide 27 mmol/L (22.0-30.0); Chloride 105 mmol/L (98-107); Estimated Glomerular Filt Rate 50 ml/min (>60); GFR (African American) 60 ML/MIN (>60); Glucose 167 mg/dl (74-100); Sodium 142 mmol/L (136-145)
== END ==
PROVIDERS: PCP Family Medicine; Visit Provider Family Medicine
DX: E87.5 Hyperkalemia (principal)
CPT/HCPCS: 36415; 80048

== ENCOUNTER → 2023-02-08 14:11 | Outpatient (POV) | payer MEDICARE, SELFPAY ==
--- NOTE | 2023-02-08 15:30 | EXP.PAIN.SOA ---
[facility] Pain Management SOAP Note Subjective:: Patient is a pleasant 72-year-old male who presents today for insurance denial. We are currently treating the patient for degenerative disc disease of lumbar spine with lumbar radiculopathy symptoms, spinal stenosis with neurogenic claudication symptoms, lumbar postlaminectomy syndrome. Today he rates his pain an 8 out of 10. Patient denies any new trauma or injury. He denies any change location or type of pain he experiences. Patient states he continues to have low back pain that radiates into his bilateral lower extremities. He does describe this as an aching, throbbing sensation with numbness and tingling and weakness into his legs. He does state the pain interferes with his ability perform activities of daily living such as cooking and cleaning. Patient has tried recent physical therapy from June through August that did also include dry needling and a stretching machine with minimal improvement. Patient has continued to do at home exercising and stretching for longer than 12 weeks using at home exercises along with an inversion table. Patient has had 3 prior back surgeries with one on his cervical spine and 2 of his lumbar spine including a laminectomy. Patient has recently had 13 different kidney surgeries and that he is scheduled for a follow-up with his urologist on the of this month. Patient is currently managed with gabapentin 300 mg twice a day and tramadol 50 mg in the past. His Aly has been reviewed and is appropriate. Review of Systems: General: No recent weight changes, no fever, no sleep disturbances Respiratory: No cough, no shortness of air, no recurring pulmonary infections Cardiovascular/peripheral vascular: No chest pain, no palpitations, no edema, no shortness of breath Gastrointestinal: No new onset incontinence, normal bowel movements reported Genitourinary: No new onset incontinence Musculoskeletal: Low back pain, bilateral leg pain Psychiatric: [Normal mood/affect] Neurological: [Denies weakness in extremities], [denies balance issues] Objective:: Physical Exam: General: Alert and oriented x3, no acute distress, pleasant and cooperative Lungs: Respirations even and unlabored, symmetrical chest expansion Eyes: PERRL Musculoskeletal: Flexion and extension of lumbar [spine] somewhat guarded secondary to pain, [antalgic gait noted] Neurological: Speech clear, no gross sensory deficit Assessment:: Degenerative disc disease of lumbar spine with lumbar radiculopathy symptoms, spinal stenosis with neurogenic claudication symptoms, lumbar postlaminectomy syndrome Plan:: Patient continues to experience significant pain in his low back and legs with limited range of motion. Patient has tried and failed conservative therapy such as oral medications, heat and ice, topicals, physical therapy, at home stretching and exercise for longer than 12 weeks, previous failed back surgery including lumbar postlaminectomy syndrome. I have discussed with the patient that he may benefit from lumbar epidural steroid injection. Risk and benefits were discussed with the patient and he would like to proceed forward with this plan of care. Patient did have multilevel degenerative disc disease with facet hypertrophy and moderate to severe spinal stenosis noted at his L3-L4 vertebral body. Patient is currently on blood thinners and will have to stop this medication 7 days prior to this injection. We will schedule the patient for an LESI L3-L4. Patient has been instructed to contact the clinic with any concerns before the next appointment. Dr. Ramirez has reviewed this note and agrees with this plan of care. This note was dictated using voice recognition software and make contain errors or omissions. [facility] Disclaimer: The information contained in this section may have been updated after the patient was seen, as this information can be updated by other users. Medical History (Updated 01/18/23 @ 11:20 by Keysha
[2023-02-08 15:31] VITALS: BP 155/91; PULSE 68; RESP 18; O2SAT 96; BMI 27.2
== END ==
PROVIDERS: PCP Family Medicine; Visit Provider Nurse Practitioner Family
DX: M51.16 Intervertebral disc disorders with radiculopathy, lumbar region (principal); M48.062 Spinal stenosis, lumbar region with neurogenic claudication; M96.1 Postlaminectomy syndrome, not elsewhere classified
CPT/HCPCS: 99212; G0463

== ENCOUNTER 2023-03-23 10:11 | Day surgery (SDC) | payer MEDICARE, SELFPAY ==
[2023-03-23 10:20] VITALS: BP 123/73; PULSE 60; RESP 16; TEMP 36.7; O2SAT 99; BMI 28.1
[2023-03-23 10:35] VITALS: BP 131/70; PULSE 59; RESP 18; O2SAT 96
[2023-03-23 10:40] VITALS: BP 158/77; PULSE 56; RESP 16; O2SAT 99
--- NOTE | 2023-03-23 10:42 | EXP.PAIN.PRO ---
Procedure Date: 03/23/23 Time: 10:20 Anesthesiologist:: Conor Cordon CRNA Complications:: None Pre-procedure Diagnosis:: Degenerative disc lumbar spine multilevels. Lumbar radiculopathy. Lumbar postlaminectomy syndrome. Post-procedure Diagnosis:: Same. Indications for Procedure:: Patient is a very pleasant 72-year-old male that comes our clinic today for lumbar epidural steroid injection to L3-4 level. Patient is status post L4 3 4, L4-5 lumbar fusion. Patient reports low back pain as well as bilateral hip and leg radicular symptoms at times. He rates his pain 7/10. Procedure Details:: Procedure: Lumbar epidural steroid injection under fluoroscopy Informed consent was obtained and the risks and benefits of the procedure were explained to the patient. The patient was taken to the procedure room and noninvasive monitors placed, including noninvasive blood pressure cuff and pulse oximeter. The back was viewed using C-arm Fluoroscopy and prepped using Chloraprep as a cleansing solution and the L3-4 interspace was palpated. Skin and subcutaneous tissues were anesthetized using lidocaine 1.5% and a 25-gauge needle. After this, an 18-gauge Touhy epidural needle was placed into the L3-4 interspace and advanced using fluoroscopic guidance and loss of resistance to air until the epidural space was encountered. After confirmation of needle placement in the epidural space, with dye, a solution containing normal saline, 3 mL and Depo-Medrol 80 mg were incrementally injected into the lumbar epidural space. The patient tolerated the procedure well with no complications. The patient was observed in the Pain Clinic and then discharged home neurologically intact. Plan and Disposition:: Patient was discharged without incident.
== END 2023-03-23 10:40 | disposition home or self-care (01) ==
PROVIDERS: PCP Family Medicine; Visit Provider Nurse Anesthetist, Certified Registered
DX: M51.16 Intervertebral disc disorders with radiculopathy, lumbar region (principal); M96.1 Postlaminectomy syndrome, not elsewhere classified
CPT/HCPCS: 62323; J1040

== ENCOUNTER → 2023-04-07 10:36 | Outpatient (POV) | payer MEDICARE, SELFPAY ==
[2023-04-07 10:57] VITALS: BP 136/76; PULSE 58; RESP 18; O2SAT 98; BMI 61.7
--- NOTE | 2023-04-07 10:59 | EXP.PAIN.SOA ---
[facility] Pain Management SOAP Note Subjective:: Patient is a pleasant 72-year-old male who presents today for follow-up of lumbar epidural steroid injection L3 through L4 on 03/23/2023. We are currently treating the patient for degenerative disc disease of lumbar spine with lumbar radiculopathy symptoms, lumbar spinal stenosis with neurogenic claudication symptoms, lumbar postlaminectomy syndrome. Today he rates his pain an 8 out of 10. Patient denies any new trauma or injury. He does state that he had at least 50% improvement following this injection and that he did notice significant relief in his upper leg symptoms. He stated that he was able to increase his activity and walk straighter following this injection however he is starting to experience worsening pain and radiating symptoms into the lower legs. Patient states that he still has relief in his upper thighs. He does state this is an aching, throbbing sensation with numbness and tingling in his lower calves and legs. He states the pain does interfere with his ability perform activities of daily living such as cooking and cleaning. Patient has tried and failed conservative therapy such as oral medication, heat and ice, topicals, physical therapy for several months, dry needling, at home exercising and stretching for longer than 6 weeks and the use of an inversion table at home. Patient is currently managed with gabapentin 300 mg twice a day from an outside provider. He denies any side effects from this medication. Patient has had 3 prior back surgeries including 1 on his neck and 2 on his lumbar spine. Patient has also had 13 kidney surgeries this year. His Aly has been reviewed and is appropriate. Review of Systems: General: No recent weight changes, no fever, no sleep disturbances Respiratory: No cough, no shortness of air, no recurring pulmonary infections Cardiovascular/peripheral vascular: No chest pain, no palpitations, no edema, no shortness of breath Gastrointestinal: No new onset incontinence, normal bowel movements reported Genitourinary: No new onset incontinence Musculoskeletal: Low back pain, lower leg/calf pain/numbness tingling Psychiatric: [Normal mood/affect] Neurological: [Denies weakness in extremities], [denies balance issues] Objective:: Physical Exam: General: Alert and oriented x3, no acute distress, pleasant and cooperative Lungs: Respirations even and unlabored, symmetrical chest expansion Eyes: PERRL Musculoskeletal: Flexion and extension of lumbar [spine] somewhat guarded secondary to pain, [antalgic gait noted] Neurological: Speech clear, no gross sensory deficit Assessment:: Degenerative disc disease of lumbar spine with lumbar radiculopathy symptoms, lumbar spinal stenosis with neurogenic claudication symptoms, lumbar postlaminectomy syndrome, chronic pain syndrome Plan:: Patient has had significant improvement in his previous lumbar epidural of more than 50% and did have significant relief in his upper legs. Today he is having worsening pain in his low back and lower legs/calfs with numbness and tingling. Patient did have limited range of motion of his lumbar spine during today's visit. I have discussed with the patient that he may benefit from a lumbar epidural steroid injection at the level of the L4-L5 where he previously had his lumbar laminectomy. I have counseled the patient regarding that this vertebra does feet the lower legs and that it may improve his current symptoms. Risk and benefits were discussed with patient and he would like to proceed forward with this plan of care. We will schedule the patient for a diagnostic L4-L5 steroid injection. This injection will be done under fluoroscopic guidance for accuracy and safety. Patient has been instructed to contact the clinic with any concerns before the next appointment. Dr. Ramirez has reviewed this note and agrees with this plan of care. This note was dictated using voice recognition software and make contain er
== END ==
PROVIDERS: PCP Family Medicine; Visit Provider Nurse Practitioner Family
DX: M51.16 Intervertebral disc disorders with radiculopathy, lumbar region (principal); M48.062 Spinal stenosis, lumbar region with neurogenic claudication; M96.1 Postlaminectomy syndrome, not elsewhere classified; G89.4 Chronic pain syndrome
CPT/HCPCS: 99212; G0463

== ENCOUNTER 2023-04-23 08:50 | Day surgery (SDC) | payer MEDICARE, SELFPAY ==
[2023-04-23 09:07] VITALS: BP 138/68; PULSE 57; RESP 16; O2SAT 98; BMI 28.1
[2023-04-23 09:17] VITALS: BP 131/51; PULSE 52; RESP 18; O2SAT 96
[2023-04-23] MEDS: methylPREDNISolone ACETATE 80MG/ML VIAL 80 MG (09:17)
[2023-04-23 09:18] VITALS: BP 131/51; PULSE 54; RESP 18; O2SAT 96
[2023-04-23 09:21] VITALS: BP 122/65; PULSE 52; RESP 16; O2SAT 98
--- NOTE | 2023-04-23 09:21 | EXP.PAIN.PRO ---
Procedure Date: 04/23/23 Time: 09:10 Anesthesiologist:: Conor Cordon CRNA Complications:: None Pre-procedure Diagnosis:: Degenerative disc lumbar spine multilevels. Lumbar radiculopathy. Lumbar postlaminectomy syndrome. Post-procedure Diagnosis:: Same. Indications for Procedure:: Patient is a very pleasant 72-year-old male comes our clinic today for lumbar epidural steroid injection at the L4-5 level. Patient had a recent lumbar epidural steroid injection 3 to 4 weeks ago. He is reporting 50 to 75% improvement terms of his overall low back pain as well as bilateral hip and leg radicular symptoms. Patient very pleased with the results from his initial injection. He rates his pain today 6/10. Procedure Details:: Procedure: Lumbar epidural steroid injection under fluoroscopy Informed consent was obtained and the risks and benefits of the procedure were explained to the patient. The patient was taken to the procedure room and noninvasive monitors placed, including noninvasive blood pressure cuff and pulse oximeter. The back was viewed using C-arm Fluoroscopy and prepped using Chloraprep as a cleansing solution and the L4-L5 interspace was palpated. Skin and subcutaneous tissues were anesthetized using lidocaine 1.5% and a 25-gauge needle. After this, an 18-gauge Touhy epidural needle was placed into the L4-L5 interspace and advanced using fluoroscopic guidance and loss of resistance to air until the epidural space was encountered. After confirmation of needle placement in the epidural space, with dye, a solution containing normal saline, 3 mL and Depo-Medrol 80 mg were incrementally injected into the lumbar epidural space. The patient tolerated the procedure well with no complications. The patient was observed in the Pain Clinic and then discharged home neurologically intact. Plan and Disposition:: Patient was discharged without incident.
== END 2023-04-23 09:21 | disposition home or self-care (01) ==
PROVIDERS: PCP Family Medicine; Visit Provider Nurse Anesthetist, Certified Registered
DX: M51.16 Intervertebral disc disorders with radiculopathy, lumbar region (principal); M96.1 Postlaminectomy syndrome, not elsewhere classified
CPT/HCPCS: 62323; J1040

== ENCOUNTER → 2023-05-05 09:30 | Outpatient (POV) | payer MEDICARE, SELFPAY ==
[2023-05-05 09:52] VITALS: BP 156/80; PULSE 66; RESP 18; O2SAT 96; BMI 27.9
--- NOTE | 2023-05-05 10:01 | EXP.PAIN.SOA ---
[facility] Pain Management SOAP Note Subjective:: Patient is a pleasant 72-year-old male who presents today for follow-up of lumbar epidural L4-L5 on 04/23/2023. We are currently treating the patient for degenerative disc disease of lumbar spine with lumbar radiculopathy symptoms, lumbar spinal stenosis with neurogenic claudication symptoms, lumbar postlaminectomy syndrome, lumbar facet arthropathy. Today he rates his pain a 7 out of 10. Patient states that he did have approximately 70% improvement following this injection however it always in his legs. Patient states he has been able to increase his activity somewhat with decreased pain symptoms and he is not experiencing the throbbing that goes into his lower extremities. Patient does state however that it made no additional improvement in his overall low back pain. Patient does state today that his pain is all in his low back and that it is worse with certain movements such as bending to put on his shoes or lifting. Patient denies any radiating symptoms into his legs when he has this pain. He states the pain does interfere with his activities of daily living such as cooking and cleaning. Patient has tried and failed conservative therapy such as medications, heat and ice, topicals, physical therapy, at home exercising and stretching for longer than 6 weeks. Patient does state in the past that traction did really help at physical therapy however then he had a stroke and had episodes of worsening claustrophobia to where he could no longer do this activity. Patient did have an inversion table and tried this for several weeks however over time got harder to use and no longer does this. His Aly is appropriate and has been reviewed. Patient is on gabapentin 300 mg twice a day from an outside provider. Review of Systems: General: No recent weight changes, no fever, no sleep disturbances Respiratory: No cough, no shortness of air, no recurring pulmonary infections Cardiovascular/peripheral vascular: No chest pain, no palpitations, no edema, no shortness of breath Gastrointestinal: No new onset incontinence, normal bowel movements reported Genitourinary: No new onset incontinence Musculoskeletal: Low back pain Psychiatric: [Normal mood/affect] Neurological: [Denies weakness in extremities], [denies balance issues] Objective:: Physical Exam: General: Alert and oriented x3, no acute distress, pleasant and cooperative Lungs: Respirations even and unlabored, symmetrical chest expansion Eyes: PERRL Musculoskeletal: Flexion and extension of lumbar [spine] somewhat guarded secondary to pain, [antalgic gait noted] positive Kemps test Neurological: Speech clear, no gross sensory deficit Assessment:: Degenerative disc disease of lumbar spine with lumbar radiculopathy symptoms, lumbar spinal stenosis with neurogenic claudication symptoms, lumbar postlaminectomy syndrome, lumbar facet arthropathy Plan:: Patient is experiencing worsening pain in his low back with limited range of motion. Patient had a positive Kemps test during today's visit. Patient's previous lumbar imaging did show facet hypertrophy multilevel. I have discussed with the patient that he may benefit from lumbar medial branch block. Risk and benefits were discussed with the patient and he would like to proceed forward with this plan of care. Patient is currently on blood thinner and will have to stop this medication 5 days prior to this injections. Patient agrees with this plan of care. I have also discussed with patient if he does have a successful block that we will plan on repeating it for a second time in the future and would proceed forward with a lumbar RFA in the future. We will follow-up with these options at a later date. Patient will be scheduled for lumbar medial branch block bilaterally L4-L5 and L5-S1. Patient has been instructed to contact the clinic with any concerns before the next appointment. Dr. Ramirez has reviewed this note and agrees with this plan of care. This note was dictated using voice recognition software and make contain errors or omissions. [facility] Disclaimer: The information contained in this section may have been updated after the patient was seen, as this information can be updated by other users. Medical History Coronary arteriosclerosis Encounter for pre-operative cardiovascular clearance Hyperlipidemia Hypertensive heart disease without heart failure LV dysfunction Obesity Family History (Updated 04/23/23 @ 09:08 by Belgica Mcadams RN) Other No significant family history Social History Smoking Status: Never smoker alcohol intake: never substance use type: denies use current occupational status: retired Travel in the last 8 weeks: None
== END ==
LOC: SC.PAIN 09:30
PROVIDERS: PCP Family Medicine; Visit Provider Nurse Practitioner Family
DX: M51.16 Intervertebral disc disorders with radiculopathy, lumbar region (principal); M48.062 Spinal stenosis, lumbar region with neurogenic claudication; M47.26 Other spondylosis with radiculopathy, lumbar region; M96.1 Postlaminectomy syndrome, not elsewhere classified
CPT/HCPCS: 99212; G0463

== ENCOUNTER 2023-05-18 12:51 | Day surgery (SDC) | payer MEDICARE, SELFPAY ==
[2023-05-18 13:00] VITALS: BP 138/80; PULSE 105; RESP 16; TEMP 36.9; O2SAT 95; BMI 28.1
[2023-05-18 13:07] VITALS: BP 133/89; PULSE 104; RESP 18; O2SAT 95
[2023-05-18] MEDS: LIDOCAINE 1% 5ML PF VIAL 5 ML (13:07)
[2023-05-18] MEDS: methylPREDNISolone ACETATE 80MG/ML VIAL 80 MG (13:07)
[2023-05-18] MEDS: BUPIVACAINE 0.25% 10ML INJ 25 MG IJ (13:07)
[2023-05-18 13:09] VITALS: BP 133/89; PULSE 102; RESP 18; O2SAT 96
[2023-05-18 13:16] VITALS: BP 140/84; PULSE 109; RESP 18; O2SAT 97
--- NOTE | 2023-05-18 13:16 | P.PCN_ITS ---
Procedure Date: 05/18/23 Time: 13:10 Anesthesiologist:: Conor Cordon CRNA Complications:: None Pre-procedure Diagnosis:: Degenerative disc lumbar spine multilevels. Lumbar radiculopathy. Lumbar spinal stenosis. Lumbar facet arthropathy. Lumbar spondylosis. Lumbar postlaminectomy syndrome. Post-procedure Diagnosis:: Same. Indications for Procedure:: Patient is a very pleasant 72-year-old male comes our clinic today for medial branch blocks/facet injections lumbar bilaterally L4-5, L5-S1. Patient describes low back pain as constant, dull, aching. He rates his pain 8/10. Patient also describes bilateral hip and leg radicular symptoms at times. Procedure Details:: Informed consent was obtained and the risk and benefits of the procedure was explained to the patient. Patient was taken to the procedure room where noninvasive monitors were placed, including noninvasive blood pressure cuff as well as pulse oximeter. The area over the lumbar spine was cleansed using chlorhexidine as a cleansing solution. I anesthetized the skin and subcutaneous tissues with 1% Lidocaine. I placed 22-gauge spinal needles into the facet joint/ medial branches of L4-L5, and L5-S1 bilaterally. Needle placement was confirmed with fluoroscopy. After confirmation of needle placement, each site was injected with 1 mL of 1% lidocaine and 0.25 % Marcaine and 10 mg of Depo- Medrol. A total of 80 mg of depo medrol was used for bilateral medial branch blocks of L4-L5, and L5-S1 bilaterally. Patient tolerated the procedure without difficulty. There were no complications. Plan and Disposition:: Patient was reevaluated 10 minutes post procedure. He reports 75% improvement terms of his overall low back pain with sitting, standing, left and right rotation. Patient was discharged without incident.
== END 2023-05-18 13:16 | disposition home or self-care (01) ==
PROVIDERS: PCP Family Medicine; Visit Provider Nurse Anesthetist, Certified Registered
DX: M47.896 Other spondylosis, lumbar region (principal); M51.16 Intervertebral disc disorders with radiculopathy, lumbar region; M96.1 Postlaminectomy syndrome, not elsewhere classified; M48.061 Spinal stenosis, lumbar region without neurogenic claudication
CPT/HCPCS: 64493; 64494; J1040

== ENCOUNTER → 2023-06-09 13:40 | Outpatient (POV) | payer MEDICARE, SELFPAY ==
--- NOTE | 2023-06-09 14:17 | A.OFFVIS_ITS ---
[facility] Pain Management SOAP Note Subjective:: Patient is a pleasant 72-year-old male who presents today for follow-up of his first lumbar medial branch block bilaterally L4-L5 and L5-S1 on 05/18/2023. We are currently treating the patient for degenerative disc disease of lumbar spine lumbar radiculopathy symptoms, lumbar spinal stenosis with neurogenic claudication symptoms, lumbar facet arthropathy. Today he rates his pain a 3 out of 10. Patient denies any new trauma or injury. He does state that he had at least 75% improvement following this injection lasting only a couple of hours or so. He does state during that time he did feel overall more functional. He states today's going back towards his baseline. Patient does describe his pain as a throbbing sensation that is worse with increased activity or ambulation. He does state the pain interferes with his ability perform cooking and cleaning. Patient has tried and failed conservative therapies. Patient is prescribed gabapentin 300 mg from an outside provider. His Aly has been reviewed and is appropriate. Review of Systems: General: No recent weight changes, no fever, no sleep disturbances Respiratory: No cough, no shortness of air, no recurring pulmonary infections Cardiovascular/peripheral vascular: No chest pain, no palpitations, no edema, no shortness of breath Gastrointestinal: No new onset incontinence, normal bowel movements reported Genitourinary: No new onset incontinence Musculoskeletal: Low back pain Psychiatric: [Normal mood/affect] Neurological: [Denies weakness in extremities], [denies balance issues] Objective:: Physical Exam: General: Alert and oriented x3, no acute distress, pleasant and cooperative Lungs: Respirations even and unlabored, symmetrical chest expansion Eyes: PERRL Musculoskeletal: Flexion and extension of lumbar [spine] somewhat guarded secondary to pain, [antalgic gait noted] Neurological: Speech clear, no gross sensory deficit Assessment:: Degenerative disc disease of lumbar spine with lumbar radiculopathy symptoms, lumbar spinal stenosis with neurogenic claudication symptoms, lumbar facet arthropathy Plan:: Patient did have a successful diagnostic lumbar medial branch block with approximately 75% improvement. I have discussed with the patient that he may benefit from a repeat lumbar medial branch block. Risk and benefits were discussed with the patient and he would like to proceed forward with this plan of care. I have discussed with the patient if he does have another successful block we will plan on proceeding forward with a lumbar RFA at a future date. I will also order the patient a compounded cream. Patient will be scheduled for a lumbar medial branch block bilaterally L4-L5 and L5-S1 under fluoroscopy. Patient has been instructed to contact the clinic with any concerns before the next appointment. Dr. Ramirez has reviewed this note and agrees with this plan of care. This note was dictated using voice recognition software and make contain errors or omissions. [facility] Disclaimer: The information contained in this section may have been updated after the patient was seen, as this information can be updated by other users. Medical History Coronary arteriosclerosis Encounter for pre-operative cardiovascular clearance Hyperlipidemia Hypertensive heart disease without heart failure LV dysfunction Obesity Family History Other No significant family history Social History Smoking Status: Never smoker alcohol intake: never substance use type: denies use current occupational status: retired Travel in the last 8 weeks: None
[2023-06-09 14:39] VITALS: BP 129/79; PULSE 71; RESP 20; O2SAT 95; BMI 27.9
== END ==
LOC: SC.PAIN 13:41
PROVIDERS: PCP Family Medicine; Visit Provider Nurse Practitioner Family
DX: M47.896 Other spondylosis, lumbar region (principal); M51.16 Intervertebral disc disorders with radiculopathy, lumbar region; M48.062 Spinal stenosis, lumbar region with neurogenic claudication
CPT/HCPCS: 99212; G0463

== ENCOUNTER 2023-06-29 09:02 | Day surgery (SDC) | payer MEDICARE, SELFPAY ==
[2023-06-29 09:30] VITALS: BP 106/72; PULSE 74; RESP 16; TEMP 36.7; O2SAT 96; BMI 27.2
[2023-06-29 10:00] VITALS: BP 117/82; PULSE 68; RESP 18; O2SAT 96
--- NOTE | 2023-06-29 10:30 | P.PCN_ITS ---
Procedure Date: 06/29/23 Time: 10:20 Anesthesiologist:: Conor Cordon CRNA Complications:: None Pre-procedure Diagnosis:: Degenerative disc lumbar spine multilevels. Lumbar radiculopathy. Lumbar postlaminectomy syndrome. Lumbar spondylosis. Multilevel lumbar facet arthropathy. Post-procedure Diagnosis:: Same. Indications for Procedure:: Patient is a very pleasant 72-year-old male comes our clinic today for bilateral L4-5, L5-S1 medial branch blocks/facet injection. Patient reports low back pain. Patient also reports pain with flexion, extension, left and right rotation. He rates his pain 7/10. This will be round to of this injection for the patient. He reports 1 to 2 days of significant improvement terms of his overall low back pain with his first round. Procedure Details:: Informed consent was obtained and the risk and benefits of the procedure was explained to the patient. Patient was taken to the procedure room where noninvasive monitors were placed, including noninvasive blood pressure cuff as well as pulse oximeter. The area over the lumbar spine was cleansed using chlorhexidine as a cleansing solution. I anesthetized the skin and subcutaneous tissues with 1% Lidocaine. I placed 22-gauge spinal needles into the facet joint/ medial branches of L4-L5, and L5-S1] bilaterally. Needle placement was confirmed with fluoroscopy. After confirmation of needle placement, each site was injected with 1 mL of 1% lidocaine and 0.25 % Marcaine and 10 mg of Depo- Medrol. A total of 80 mg of depo medrol was used for bilateral medial branch blocks of , L4-L5, and L5-S1] bilaterally. Patient tolerated the procedure witho ut difficulty. There were no complications. Plan and Disposition:: Patient was discharged without incident.
[2023-06-29] MEDS: methylPREDNISolone ACETATE 80MG/ML VIAL 80 MG (12:58)
[2023-06-29 12:59] VITALS: BP 126/88; PULSE 91; RESP 18; O2SAT 96
[2023-06-29] MEDS: LIDOCAINE 1% 5ML PF VIAL 5 ML (12:59)
[2023-06-29 13:05] VITALS: BP 126/88; PULSE 70; RESP 18; O2SAT 96
== END 2023-06-29 10:00 | disposition home or self-care (01) ==
LOC: SC.PAINP 09:03
PROVIDERS: PCP Family Medicine; Visit Provider Nurse Anesthetist, Certified Registered
DX: M47.896 Other spondylosis, lumbar region (principal); M51.16 Intervertebral disc disorders with radiculopathy, lumbar region; M96.1 Postlaminectomy syndrome, not elsewhere classified
CPT/HCPCS: 64493; 64494; J1040

== ENCOUNTER 2023-07-12 11:19 | Outpatient (POV) | payer MEDICARE, SELFPAY ==
[2023-07-12 11:32] VITALS: BP 133/99; PULSE 68; RESP 18; O2SAT 96; BMI 27.2
--- NOTE | 2023-07-12 11:54 | EXP.PAIN.SOA ---
[facility] Pain Management SOAP Note Subjective:: Patient is a pleasant 72-year-old male who presents today for follow up of his lumbar medial branch block bilaterally L4-L5 and L5-S1 on 07/14/2023. Today he rates his pain a 5 out of 10. Patient states that he has had at least 80% improvement in his overall back symptoms. He states he has been able to increase his activity and do certain things like bending or twisting with overall improved symptoms. He does state today that his pain is all related to his legs. He describes this as a constant throbbing sensation when he is up walking or standing. Patient states the pain does fine when he is sitting. Patient is interested in any help we may be able to provide for the symptoms. He does state that the pain does interfere with his ability to perform activities of daily living such as cooking and cleaning. Patient is prescribed gabapentin from an outside provider. Patient did get the compounded cream from our last visit however he states he applied it to his back and did not really seem to notice much improvement. His Aly has been reviewed and is appropriate. Review of Systems: General: No recent weight changes, no fever, no sleep disturbances Respiratory: No cough, no shortness of air, no recurring pulmonary infections Cardiovascular/peripheral vascular: No chest pain, no palpitations, no edema, no shortness of breath Gastrointestinal: No new onset incontinence, normal bowel movements reported Genitourinary: No new onset incontinence Musculoskeletal: Low back pain, bilateral leg pain Psychiatric: [Normal mood/affect] Neurological: [Denies weakness in extremities], [denies balance issues] Objective:: Physical Exam: General: Alert and oriented x3, no acute distress, pleasant and cooperative Lungs: Respirations even and unlabored, symmetrical chest expansion Eyes: PERRL Musculoskeletal: Flexion and extension of lumbar [spine] somewhat guarded secondary to pain, [antalgic gait noted] Neurological: Speech clear, no gross sensory deficit Assessment:: Degenerative disc disease of lumbar spine with lumbar radiculopathy symptoms, lumbar postlaminectomy syndrome, lumbar spinal stenosis with neurogenic claudication symptoms, lumbar facet arthropathy, chronic pain Plan:: Patient is experiencing worsening pain in his lower legs with throbbing and numbness and tingling. Patient had limited range of motion of his lumbar spine during today's visit. Patient does have continued symptoms consistent with spinal stenosis with neurogenic claudication symptoms. Patient did have canal stenosis with severe narrowing most prominent at the L3-L4 level. I have discussed with the patient that he may benefit from a lumbar epidural steroid injection. Risk and benefits were discussed with the patient and he would like to proceed forward with this plan of care. Patient has tried and failed conservative therapy such as oral medication, heat and ice, topicals, previous physical therapy with continued at home stretching exercise for longer than 6 weeks. Patient is currently on Plavix and we will reach out to Dr. Swanson's office to confirm that he can stop this medication prior to this injection. Patient will be scheduled for an LESI L3-L4 under fluoroscopy. Patient has been instructed to contact the clinic with any concerns before the next appointment. Dr. Ramirez has reviewed this note and agrees with this plan of care. This note was dictated using voice recognition software and make contain errors or omissions. [facility] Disclaimer: The information contained in this section may have been updated after the patient was seen, as this information can be updated by other users. Medical History LV dysfunction Encounter for pre-operative cardiovascular clearance Obesity Hyperlipidemia Hypertensive heart disease without heart failure Coronary arteriosclerosis Family History Other No significant family history Social History Smoking Status: Never smoker alcohol intake: never substance use type: denies use current occupational status: retired Travel in the last 8 weeks: None
== END 2023-07-12 23:59 ==
LOC: SC.PAIN 11:20
PROVIDERS: PCP Family Medicine; Visit Provider Nurse Practitioner Family
DX: M51.16 Intervertebral disc disorders with radiculopathy, lumbar region (principal); M96.1 Postlaminectomy syndrome, not elsewhere classified; M48.062 Spinal stenosis, lumbar region with neurogenic claudication; M47.26 Other spondylosis with radiculopathy, lumbar region; G89.29 Other chronic pain
CPT/HCPCS: 99212; G0463

== ENCOUNTER 2023-08-03 08:21 | Day surgery (SDC) | payer MEDICARE, SELFPAY ==
[2023-08-03 08:45] VITALS: BP 124/76; PULSE 56; RESP 18; TEMP 36.7; O2SAT 97; BMI 27.2
[2023-08-03 08:56] VITALS: RESP 18; O2SAT 96
[2023-08-03] MEDS: methylPREDNISolone ACETATE 80MG/ML VIAL 80 MG (08:56)
[2023-08-03 08:57] VITALS: RESP 18; O2SAT 96
[2023-08-03 09:00] VITALS: BP 134/74; PULSE 54; RESP 18; O2SAT 97
--- NOTE | 2023-08-03 09:14 | P.PCN_ITS ---
Procedure Date: 08/03/23 Time: 08:50 Anesthesiologist:: Conor Cordon CRNA Complications:: None Pre-procedure Diagnosis:: Degenerative disc lumbar spine multilevels. Lumbar radiculopathy. Lumbar postlaminectomy syndrome. Post-procedure Diagnosis:: Same. Indications for Procedure:: Patient is a very pleasant 72-year-old male comes our clinic today for repeat lumbar epidural steroid injection at the L3-4 level. He reports 80+ percent improvement in his overall low back pain as well as bilateral hip and leg radicular symptoms with previous injection same level. He rates his pain today 6/10. Procedure Details:: Procedure: Lumbar epidural steroid injection under fluoroscopy Informed consent was obtained and the risks and benefits of the procedure were explained to the patient. The patient was taken to the procedure room and noninv asive monitors placed, including noninvasive blood pressure cuff and pulse oximeter. The back was viewed using C-arm Fluoroscopy and prepped using Chloraprep as a cleansing solution and the L3-4 interspace was palpated. Skin and subcutaneous tissues were anesthetized using lidocaine 1.5% and a 25-gauge needle. After this, an 18-gauge Touhy epidural needle was placed into the L3-4 interspace and advanced using fluoroscopic guidance and loss of resistance to air until the epidural space was encountered. After confirmation of needle placement in the epidural space, with dye, a solution containing normal saline, 3 mL and Depo-Medrol 80 mg were incrementally injected into the lumbar epidural space. The patient tolerated the procedure well with no complications. The patient was observed in the Pain Clinic and then discharged home neurologically intact. Plan and Disposition:: Patient was discharged without incident.
== END 2023-08-03 09:00 | disposition home or self-care (01) ==
LOC: SC.PAINP 08:22
PROVIDERS: PCP Family Medicine; Visit Provider Nurse Anesthetist, Certified Registered
DX: M51.16 Intervertebral disc disorders with radiculopathy, lumbar region (principal); M96.1 Postlaminectomy syndrome, not elsewhere classified
CPT/HCPCS: 62323; J1010

== ENCOUNTER 2023-08-18 09:07 | Outpatient (POV) | payer MEDICARE, SELFPAY ==
--- NOTE | 2023-08-18 09:32 | EXP.PAIN.SOA ---
[facility] Pain Management SOAP Note Subjective:: Patient is a pleasant 72-year-old male who presents today for follow-up lumbar epidural steroid injection L3-L4 on 08/03/2023. Today he rates his pain a 0 out of 10. Patient states he has had at least 90 to 95% improvement following this injection and feels like it is still currently providing additional relief. Patient states he does feel like he is walking straighter with decreased pain symptoms and feels overall more functional. Patient states he is not even having to use his cane since having this done. Patient has been prescribed gabapentin from his primary care and a compounded cream from our office however he did not notice significant relief. His Aly has been reviewed and is appropriate. Review of Systems: General: No recent weight changes, no fever, no sleep disturbances Respiratory: No cough, no shortness of air, no recurring pulmonary infections Cardiovascular/peripheral vascular: No chest pain, no palpitations, no edema, no shortness of breath Gastrointestinal: No new onset incontinence, normal bowel movements reported Genitourinary: No new onset incontinence Musculoskeletal: Low back pain Psychiatric: [Normal mood/affect] Neurological: [Denies weakness in extremities], [denies balance issues] Objective:: Physical Exam: General: Alert and oriented x3, no acute distress, pleasant and cooperative Lungs: Respirations even and unlabored, symmetrical chest expansion Eyes: PERRL Musculoskeletal: Flexion and extension of lumbar [spine] somewhat guarded secondary to pain, [antalgic gait noted] Neurological: Speech clear, no gross sensory deficit Assessment:: Degenerative disc disease of lumbar spine with lumbar radiculopathy symptoms, lumbar postlaminectomy syndrome, lumbar spinal stenosis with neurogenic claudication symptoms, lumbar facet arthropathy, chronic pain syndrome Plan:: Patient has had significant improvement following his lumbar epidural and does not require any additional injection therapy at this time. Patient will return to clinic in 1 month for reevaluation of symptoms and plan of care. Patient has been instructed to contact the clinic with any concerns before the next appointment. Dr. Ramirez has reviewed this note and agrees with this plan of care. This note was dictated using voice recognition software and make contain errors or omissions. [facility] Disclaimer: The information contained in this section may have been updated after the patient was seen, as this information can be updated by other users. Medical History LV dysfunction Encounter for pre-operative cardiovascular clearance Obesity Hyperlipidemia Hypertensive heart disease without heart failure Coronary arteriosclerosis Family History Other No significant family history Social History Smoking Status: Never smoker alcohol intake: never substance use type: denies use current occupational status: retired Travel in the last 8 weeks: None
[2023-08-18 09:39] VITALS: BP 148/81; PULSE 65; RESP 18; O2SAT 96; BMI 27.9
== END 2023-08-18 23:59 | disposition home or self-care (01) ==
LOC: SC.PAIN 09:07
PROVIDERS: PCP Family Medicine; Visit Provider Nurse Practitioner Family
DX: M51.16 Intervertebral disc disorders with radiculopathy, lumbar region (principal); M96.1 Postlaminectomy syndrome, not elsewhere classified; M48.062 Spinal stenosis, lumbar region with neurogenic claudication; M47.26 Other spondylosis with radiculopathy, lumbar region; G89.4 Chronic pain syndrome
CPT/HCPCS: 99212; G0463

== ENCOUNTER 2023-09-16 09:09 | Outpatient (POV) | payer MEDICARE, SELFPAY ==
[2023-09-16 09:25] VITALS: BP 121/79; PULSE 71; RESP 18; O2SAT 96; BMI 26.9
--- NOTE | 2023-09-16 09:33 | EXP.PAIN.SOA ---
[facility] Pain Management SOAP Note Subjective:: Patient is a pleasant 73-year-old male who presents today for 1 month follow-up. Today he rates his pain a 0 out of 10. Patient states that he still feels like he is getting significant relief following his lumbar epidural of L3-L4 from August 03, 2023. Patient did write 90 to 95% improvement. Patient states he still feels like he is standing straighter with overall decreased pain. He states he is not even having to rely on using his cane. He is prescribed gabapentin from his PCP and compounded cream from our office. His Aly has been reviewed and is appropriate. Review of Systems: General: No recent weight changes, no fever, no sleep disturbances Respiratory: No cough, no shortness of air, no recurring pulmonary infections Cardiovascular/peripheral vascular: No chest pain, no palpitations, no edema, no shortness of breath Gastrointestinal: No new onset incontinence, normal bowel movements reported Genitourinary: No new onset incontinence Musculoskeletal: Low back pain Psychiatric: [Normal mood/affect] Neurological: [Denies weakness in extremities], [denies balance issues] Objective:: Physical Exam: General: Alert and oriented x3, no acute distress, pleasant and cooperative Lungs: Respirations even and unlabored, symmetrical chest expansion Eyes: PERRL Musculoskeletal: Flexion and extension of lumbar [spine] somewhat guarded secondary to pain, [antalgic gait noted] Neurological: Speech clear, no gross sensory deficit Assessment:: Degenerative disc disease of lumbar spine with lumbar radiculopathy symptoms, lumbar facet arthropathy, chronic pain syndrome, lumbar spinal stenosis with neurogenic claudication symptoms Plan:: Patient continues to get significant relief from his prior lumbar epidural. We will have the patient return to clinic in 3 months for reevaluation of symptoms and plan of care. Patient has been instructed to contact the clinic with any concerns before the next appointment. Dr. Ramirez has reviewed this note and agrees with this plan of care. This note was dictated using voice recognition software and make contain errors or omissions. [facility] Disclaimer: The information contained in this section may have been updated after the patient was seen, as this information can be updated by other users. Medical History LV dysfunction Encounter for pre-operative cardiovascular clearance Obesity Hyperlipidemia Hypertensive heart disease without heart failure Coronary arteriosclerosis Family History Other No significant family history Social History Smoking Status: Never smoker alcohol intake: never substance use type: denies use current occupational status: retired Travel in the last 8 weeks: None
== END 2023-09-16 23:59 | disposition home or self-care (01) ==
LOC: SC.PAIN 09:10
PROVIDERS: PCP Family Medicine; Visit Provider Nurse Practitioner Family
DX: M51.16 Intervertebral disc disorders with radiculopathy, lumbar region (principal); M47.26 Other spondylosis with radiculopathy, lumbar region; G89.4 Chronic pain syndrome; M48.062 Spinal stenosis, lumbar region with neurogenic claudication
CPT/HCPCS: 99212; G0463

== ENCOUNTER 2023-11-11 08:43 | Outpatient (POV) | payer MEDICARE, SELFPAY ==
--- NOTE | 2023-11-11 08:57 | A.OFFVIS_ITS ---
[facility] Disclaimer: The information contained in this section may have been updated after the patient was seen, as this information can be updated by other users. Medical History LV dysfunction Encounter for pre-operative cardiovascular clearance Obesity Hyperlipidemia Hypertensive heart disease without heart failure Coronary arteriosclerosis Family History Other No significant family history Social History Smoking Status: Never smoker alcohol intake: never substance use type: denies use current occupational status: retired Travel in the last 8 weeks: None PM Subjective & Objective Subjective Subjective:: Patient is a pleasant 73-year-old male who presents today for follow-up. Today he rates his pain at a 6 out of 10. Patient denies any new trauma or injury. He does state that he is starting to have more pain in his low back and legs and describes it as an aching, throbbing sensation with numbness and tingling. Patient does state the pain has started to interfere again with his activities of daily living such as cooking and cleaning. Patient states that it just started over the last week and that it is worse when he starts walking or trying to do activities. Patient did have a previous lumbar epidural back in July that did provide 90 to 95% improvement. He does state that he would like to r epeat this injection due to how much improvement it did give. Patient states he was able to move around easier with overall improved function. Patient is prescribed gabapentin from his PCP and compounded cream from our office. His Aly has been reviewed and is appropriate. Review of Systems: General: No recent weight changes, no fever, no sleep disturbances Respiratory: No cough, no shortness of air, no recurring pulmonary infections Cardiovascular/peripheral vascular: No chest pain, no palpitations, no edema, no shortness of breath Gastrointestinal: No new onset incontinence, normal bowel movements reported Genitourinary: No new onset incontinence Musculoskeletal: Low back pain, bilateral leg pain Psychiatric: [Normal mood/affect] Neurological: [Denies weakness in extremities], [denies balance issues] Pain at rest (0-10 scale): 6 Objective Objective:: Physical Exam: General: Alert and oriented x3, no acute distress, pleasant and cooperative Lungs: Respirations even and unlabored, symmetrical chest expansion Eyes: PERRL Musculoskeletal: Flexion and extension of lumbar [spine] somewhat guarded secondary to pain, [antalgic gait noted] Neurological: Speech clear, no gross sensory deficit Has patient had previous pain injection?: No Conservative treatment options previously tried: Home exercise plan Length of treatment: Longer than 6 weeks Meds Home Medications and Allergies Home Medications Medication Instructions Recorded Confirmed Type cholecalciferol (vitamin D3) 25 1,000 unit PO DAILY SUPPLIMENT 07/05/17 09/16/23 History mcg (1,000 unit) capsule metoprolol succinate 100 mg 100 mg PO DAILY BLOOD PRESSURE 07/05/17 09/16/23 History tablet,extended release 24 hr (Toprol XL) valsartan 80 mg tablet (Diovan) 80 mg PO DAILY BLOOD PRESSURE 07/05/17 09/16/23 History evolocumab 140 mg/mL subcutaneous 140 mg SQ Q2W . 07/06/17 09/16/23 History pen injector (Anthony Sidhu) clopidogrel 75 mg tablet 75 mg PO DAILY Blood Thinner 10/06/22 09/16/23 History gabapentin 300 mg capsule 300 mg PO BID Pain 10/06/22 09/16/23 History mupirocin 2 % topical ointment 1 applicatio TP TID Skin Condition 01/18/23 09/16/23 History New Prescriptions to Start Prescriptions: Allergies Allergy/AdvReac Type Severity Reaction Status Date / Time azithromycin [AZITHROMYCIN] Allergy Unknown Verified 08/03/23 08:45 Penicillins [PENICILLINS] Allergy Unknown Verified 08/03/23 08:45 cefdinir Allergy Verified 08/03/23 08:45 morphine [MORPHINE] AdvReac Unknown Nausea Verified 08/03/23 08:45 Assessment and Plan *Assessment and plan (1) Lumbar post-laminectomy syndrome: Status: Acute Category: Medical Code(s): M96.1 - Postlaminectomy syndrome, not elsewhere classified (2) Spinal stenosis, lumbar region with neurogenic claudication: Status: Acute Category: Medical Code(s): M48.062 - Spinal stenosis, lumbar region with neurogenic claudication (3) Bilateral leg pain: Status: Acute Category: Medical Code(s): M79.604 - Pain in right leg; M79.605 - Pain in left leg Plan Patient is experiencing significant pain throughout his low back and legs with limited range of motion. Patient did previously have a lumbar epidural that provided 90 to 95% improvement lasting 3 months. I have reviewed viewed over with the patient that he may benefit from a repeat lumbar epidural steroid injection. Risk and benefits were discussed with the patient and he would like to proceed forward with this plan of care. Patient is currently on blood thinners written by Dr. Swanson's office. I have counseled him that we will have to call and confirm he can stop this medication prior to this injection. Patient acknowledges understanding. Patient has tried and failed conservative therapy including continued at home stretching and exercise between injections for longer than 6 weeks. We will submit to insurance for the lumbar epidural steroid injection L3-L4 under fluoroscopy. Patient has been instructed to contact the clinic with any concerns before the next appointment. Dr. Ramirez has reviewed this note and agrees with this plan of care. This note was dictated using voice recognition software and make contain errors or omissions.
[2023-11-11 09:01] VITALS: BP 136/79; PULSE 61; RESP 16; O2SAT 95; BMI 27.9
== END 2023-11-11 23:59 | disposition home or self-care (01) ==
LOC: SC.PAIN 08:44
PROVIDERS: PCP Family Medicine; Visit Provider Nurse Practitioner Family
DX: M96.1 Postlaminectomy syndrome, not elsewhere classified (principal); M48.062 Spinal stenosis, lumbar region with neurogenic claudication; M79.604 Pain in right leg; M79.605 Pain in left leg
CPT/HCPCS: 99212; G0463

== ENCOUNTER 2023-11-23 10:14 | Day surgery (SDC) | payer MEDICARE, SELFPAY ==
[2023-11-23 10:30] VITALS: BP 99/64; PULSE 55; RESP 16; TEMP 36.8; O2SAT 97; BMI 27.9
[2023-11-23 10:50] VITALS: BP 127/76; PULSE 58; RESP 18; O2SAT 96
[2023-11-23] MEDS: methylPREDNISolone ACETATE 80MG/ML VIAL 80 MG (10:50)
--- NOTE | 2023-11-23 10:52 | EXP.PAIN.PRO ---
Procedure Date: 11/23/23 Time: 10:30 Anesthesiologist:: Conor Cordon CRNA Complications:: None Pre-procedure Diagnosis:: Degenerative disc lumbar spine multilevels. Lumbar radiculopathy. Lumbar postlaminectomy syndrome. Post-procedure Diagnosis:: Same. Indications for Procedure:: Patient is a very pleasant 73-year-old male comes our clinic today for repeat lumbar epidural steroid injection to the L3-4 level. Patient describes low back pain as well as bilateral hip and leg pain is constant, dull, aching. He presents today in a wheelchair due to the length of distance between the parking lot in our clinic. Otherwise, he states he is ambulatory at times. He rates his pain 7/10. Procedure Details:: Procedure: Lumbar epidural steroid injection under fluoroscopy Informed consent was obtained and the risks and benefits of the procedure were explained to the patient. The patient was taken to the procedure room and noninvasive monitors placed, including noninvasive blood pressure cuff and pulse oximeter. The back was viewed using C-arm Fluoroscopy and prepped using Chloraprep as a cleansing solution and the L5-S1 interspace was palpated. Skin and subcutaneous tissues were anesthetized using lidocaine 1.5% and a 25-gauge needle. After this, an 18-gauge Touhy epidural needle was placed into the L5-S1 interspace and advanced using fluoroscopic guidance and loss of resistance to air until the epidural space was encountered. After confirmation of needle placement in the epidural space, with dye, a solution containing normal saline, 3 mL and Depo-Medrol 80 mg were incrementally injected into the lumbar epidural space. The patient tolerated the procedure well with no complications. The patient was observed in the Pain Clinic and then discharged home neurologically intact. I was unable to access the L3-4 intervertebral space for the epidural. I elected to give the epidural at the L5-S1 level. I discussed in briefly with the patient regarding treatment options moving forward. We discussed briefly intrathecal pain pump. He voiced some interest. I instructed the patient to discuss when he returns for follow-up visit. Plan and Disposition:: Patient was discharged without incident.
[2023-11-23 10:57] VITALS: BP 127/76; PULSE 58; RESP 18; O2SAT 96
[2023-11-23 10:59] VITALS: BP 112/69; PULSE 57; RESP 16; O2SAT 97
== END 2023-11-23 11:01 | disposition home or self-care (01) ==
PROVIDERS: PCP Family Medicine; Visit Provider Nurse Anesthetist, Certified Registered
DX: M54.16 Radiculopathy, lumbar region (principal)
CPT/HCPCS: 62323; J1010

== ENCOUNTER 2023-12-16 08:15 | Outpatient (POV) | payer MEDICARE, SELFPAY ==
[2023-12-16 08:56] VITALS: BP 119/72; PULSE 56; RESP 16; O2SAT 96; BMI 27.9
--- NOTE | 2023-12-16 09:08 | EXP.PAIN.SOA ---
[facility] Disclaimer: The information contained in this section may have been updated after the patient was seen, as this information can be updated by other users. Medical History LV dysfunction Encounter for pre-operative cardiovascular clearance Obesity Hyperlipidemia Hypertensive heart disease without heart failure Coronary arteriosclerosis Family History Other No significant family history Social History Smoking Status: Never smoker alcohol intake: never substance use type: denies use current occupational status: retired Travel in the last 8 weeks: None PM Subjective & Objective Subjective Subjective:: Patient is a pleasant 73-year-old male who presents today for follow-up of lumbar epidural steroid injection at L5-S1 on 11/23/2023. Today he rates his pain a 8 out of 10. He denies any new trauma or injury. He does state that this injection did provide at least 50% improvement however it only lasted a couple of weeks. Patient states that the prior epidural back in July provided 90 to 95% improvement lasting almost 3 months. Patient does state he still has been experiencing chronic pain throughout his low back and legs that does interfere with his ability perform activities of daily living. Patient states that he does not walk very far due to the worsening pain. He is also prescribed compounded cream from our office and gabapentin from his PCP. His Aly has been reviewed and is appropriate. Review of Systems: General: No recent weight changes, no fever, no sleep disturbances Respiratory: No cough, no shortness of air, no recurring pulmonary infections Cardiovascular/peripheral vascular: No chest pain, no palpitations, no edema, no shortness of breath Gastrointestinal: No new onset incontinence, normal bowel movements reported Genitourinary: No new onset incontinence Musculoskeletal: Low back pain, leg pain Psychiatric: [Normal mood/affect] Neurological: [Denies weakness in extremities], [denies balance issues] Pain at rest (0-10 scale): 8 Objective Objective:: Physical Exam: General: Alert and oriented x3, no acute distress, pleasant and cooperative Lungs: Respirations even and unlabored, symmetrical chest expansion Eyes: PERRL Musculoskeletal: Flexion and extension of lumbar [spine] somewhat guarded secondary to pain, [antalgic gait noted] Neurological: Speech clear, no gross sensory deficit Has patient had previous pain injection?: Yes Percent improvement in pain since last injection: 50% Conservative treatment options previously tried: Home exercise plan Length of treatment: Longer than 6 weeks Meds Home Medications and Allergies Home Medications ?Medication ?Instructions ?Recorded ?Confirmed ?Type cholecalciferol (vitamin D3) 25 1,000 unit PO DAILY SUPPLIMENT 07/05/17 12/16/23 History mcg (1,000 unit) capsule metoprolol succinate 100 mg 100 mg PO DAILY BLOOD PRESSURE 07/05/17 12/16/23 History tablet,extended release 24 hr (Toprol XL) valsartan 80 mg tablet (Diovan) 80 mg PO DAILY BLOOD PRESSURE 07/05/17 12/16/23 History evolocumab 140 mg/mL subcutaneous 140 mg SQ Q2W . 07/06/17 12/16/23 History pen injector (Rephanya [employer]) clopidogrel 75 mg tablet 75 mg PO DAILY Blood Thinner 10/06/22 12/16/23 History gabapentin 300 mg capsule 300 mg PO BID Pain 10/06/22 12/16/23 History mupirocin 2 % topical ointment 1 applicatio TP TID Skin Condition 01/18/23 12/16/23 History New Prescriptions to Start Prescriptions: Allergies Allergy/AdvReac Type Severity Reaction Status Date / Time azithromycin [AZITHROMYCIN] Allergy Unknown Verified 11/23/23 10:36 Penicillins [PENICILLINS] Allergy Unknown Verified 11/23/23 10:36 cefdinir Allergy Verified 11/23/23 10:36 morphine [MORPHINE] AdvReac Unknown Nausea Verified 11/23/23 10:36 Assessment and Plan *Assessment and plan (1) Lumbar post-laminectomy syndrome: Status: Acute Category: Medical Code(s): M96.1 - Postlaminectomy syndrome, not elsewhere classified (2) Spinal stenosis, lumbar region with neurogenic claudication: Status: Acute Category: Medical Code(s): M48.062 - Spinal stenosis, lumbar region with neurogenic claudication Plan Patient continues to experience significant pain from his low back to his bilateral lower extremities. I did discuss at length with the patient that the last epidural unfortunately they were not able to access the L3-L4 level which did provide the 90 to 95% improvement lasting 3 months however in future maybe we will have better luck getting into that vertebra. Patient will be sent in a 1 month supply of tramadol 50 mg at bedtime and return to clinic in 1 month for reevaluation of symptoms and plan of care. Risks and benefits of the medication have been explained in detail to the patient. The patient does understand the risk of dependence on the medication when given over a prolonged period. Patient has been advised of risks of oversedation with the prescribed medication. Narcan has been offered to the paitent in the event of oversedation. Patient has been advised that a family member should also be educated regarding administration of Narcan. The patient has been advised to consult with his/her primary care provider and pharmacist regarding drug-drug interaction of medications currently prescribed. Patient has been prescribed a controlled substance after being counseled on the medication, medication safety, and possible side effects. Opioid contract was reviewed and signed by the patient, and that they have agreed to all of the terms set forth by our compliance program. Patient has been instructed to contact the clinic with any concerns before the next appointment. Dr. Ramirez has reviewed this note and agrees with this plan of care. This note was dictated using voice recognition software and make contain errors or omissions.
== END 2023-12-16 23:59 | disposition home or self-care (01) ==
PROVIDERS: PCP Family Medicine; Visit Provider Nurse Practitioner Family
DX: M96.1 Postlaminectomy syndrome, not elsewhere classified (principal); M48.062 Spinal stenosis, lumbar region with neurogenic claudication; Z73.89 Other problems related to life management difficulty; Z79.02 Long term (current) use of antithrombotics/antiplatelets
CPT/HCPCS: 99212; G0463

== ENCOUNTER 2024-01-24 09:10 | Outpatient (POV) | payer MEDICARE, SELFPAY ==
[2024-01-24 09:33] VITALS: BP 120/75; PULSE 56; RESP 16; O2SAT 97; BMI 28.7
--- NOTE | 2024-01-24 09:43 | A.OFFVIS_ITS ---
[facility] Disclaimer: The information contained in this section may have been updated after the patient was seen, as this information can be updated by other users. Medical History (Updated 01/24/24 @ 09:45 by Keysha Gibbons APRN) LV dysfunction Encounter for pre-operative cardiovascular clearance Obesity Hyperlipidemia Hypertensive heart disease without heart failure Coronary arteriosclerosis Family History Other No significant family history Social History Smoking Status: Never smoker alcohol intake: never substance use type: denies use current occupational status: other Travel in the last 8 weeks: None PM Subjective & Objective Subjective Subjective:: Patient is a pleasant 73-year-old male who presents today for medication refill and follow-up and worsening pain. Today he rates his pain a 6 out of 10. He denies any new trauma or injury. He does state that he feels like his last injection has completely worn off and he is back to his baseline. Patient does state that he has pain throughout his low back that does radiate into his lower extremities. Patient previously had a lumbar epidural steroid injection L5-S1 on 11/23/2023 that did provide 50% improvement however the one he had in July did 90-95 percent improvement lasting nearly 3 months. Patient had that injection at the L3-L4 level and this was inaccessible on the date of his last injection. Patient does state that he would like to see about having a repeat injection in the future. Patient was sent in a 1 month supply of tramadol 50 mg at bedtime and he does state that he has been using this and it does seem like it helps occasionally. His Aly has been reviewed and is appropriate. Review of Systems: General: No recent weight changes, no fever, no sleep disturbances Respiratory: No cough, no shortness of air, no recurring pulmonary infections Cardiovascular/peripheral vascular: No chest pain, no palpitations, no edema, no shortness of breath Gastrointestinal: No new onset incontinence, normal bowel movements reported Genitourinary: No new onset incontinence Musculoskeletal: Low back pain, leg pain Psychiatric: [Normal mood/affect] Neurological: [Denies weakness in extremities], [denies balance issues] Pain at rest (0-10 scale): 6 Objective Objective:: Physical Exam: General: Alert and oriented x3, no acute distress, pleasant and cooperative Lungs: Respirations even and unlabored, symmetrical chest expansion Eyes: PERRL Musculoskeletal: Flexion and extension of lumbar [spine] somewhat guarded secondary to pain, [antalgic gait noted] Neurological: Speech clear, no gross sensory deficit Has patient had previous pain injection?: No Conservative treatment options previously tried: Home exercise plan Length of treatment: Longer than 12 weeks Meds Home Medications and Allergies Home Medications ?Medication ?Instructions ?Recorded ?Confirmed ?Type cholecalciferol (vitamin D3) 25 1,000 unit PO DAILY SUPPLIMENT 07/05/17 01/24/24 History mcg (1,000 unit) capsule metoprolol succinate 100 mg 100 mg PO DAILY BLOOD PRESSURE 07/05/17 01/24/24 History tablet,extended release 24 hr (Toprol XL) valsartan 80 mg tablet (Diovan) 80 mg PO DAILY BLOOD PRESSURE 07/05/17 01/24/24 History evolocumab 140 mg/mL subcutaneous 140 mg SQ Q2W . 07/06/17 01/24/24 History pen injector (Anthony Sidhu) clopidogrel 75 mg tablet 75 mg PO DAILY Blood Thinner 10/06/22 01/24/24 History gabapentin 300 mg capsule 300 mg PO BID Pain 10/06/22 01/24/24 History mupirocin 2 % topical ointment 1 applicatio TP TID Skin Condition 01/18/23 01/24/24 History tramadol 50 mg tablet 50 mg PO HS #30 tabs 12/16/23 01/24/24 Rx New Prescriptions to Start Prescriptions: Allergies Allergy/AdvReac Type Severity Reaction Status Date / Time azithromycin [AZITHROMYCIN] Allergy Unknown Verified 11/23/23 10:36 Penicillins [PENICILLINS] Allergy Unknown Verified 11/23/23 10:36 cefdinir Allergy Verified 11/23/23 10:36 morphine [MORPHINE] AdvReac Unknown Nausea Verified 11/23/23 10:36 Assessment and Plan *Assessment and plan (1) Lumbar post-laminectomy syndrome: Status: Acute Category: Medical Code(s): M96.1 - Postlaminectomy syndrome, not elsewhere classified (2) Spinal stenosis, lumbar region with neurogenic claudication: Status: Acute Category: Medical Code(s): M48.062 - Spinal stenosis, lumbar region with neurogenic claudication (3) Lumbar radiculopathy: Status: Acute Category: Medical Code(s): M54.16 - Radiculopathy, lumbar region (4) Degenerative disc disease, lumbar: Status: Acute Category: Medical Code(s): M51.36 - Other intervertebral disc degeneration, lumbar region Plan I will refill the patient's tramadol and provide a 1 month supply of this medication. Patient will return to clinic in 2 weeks for reevaluation of symptoms and plan of care. Will most likely order a repeat lumbar epidural at this visit. Patient acknowledges understanding and agrees with this plan of care. Risks and benefits of the medication have been explained in detail to the patient. The patient does understand the risk of dependence on the medication when given over a prolonged period. Patient has been advised of risks of oversedation with the prescribed medication. Narcan has been offered to the paitent in the event of oversedation. Patient has been advised that a family member should also be educated regarding administration of Narcan. The patient has been advised to consult with his/her primary care provider and pharmacist regarding drug-drug interaction of medications currently prescribed. Patient has been prescribed a controlled substance after being counseled on the medication, medication safety, and possible side effects. Opioid contract was reviewed and signed by the patient, and that they have agreed to all of the terms set forth by our compliance program. Patient has been instructed to contact the clinic with any concerns before the next appointment. Dr. Ramirez has reviewed this note and agrees with this plan of care. This note was dictated using voice recognition software and make contain errors or omissions.
== END 2024-01-24 23:59 | disposition home or self-care (01) ==
PROVIDERS: PCP Family Medicine; Visit Provider Nurse Practitioner Family
DX: M96.1 Postlaminectomy syndrome, not elsewhere classified (principal); M48.062 Spinal stenosis, lumbar region with neurogenic claudication; M51.16 Intervertebral disc disorders with radiculopathy, lumbar region
CPT/HCPCS: 99212; G0463

== ENCOUNTER 2024-02-14 09:09 | Outpatient (POV) | payer MEDICARE, SELFPAY ==
[2024-02-14 09:52] VITALS: BP 130/76; PULSE 61; RESP 18; O2SAT 99; BMI 28.7
--- NOTE | 2024-02-14 10:00 | A.OFFVIS_ITS ---
[facility] Disclaimer: The information contained in this section may have been updated after the patient was seen, as this information can be updated by other users. Medical History (Updated 01/24/24 @ 09:45 by Keysha Gibbons APRN) LV dysfunction Encounter for pre-operative cardiovascular clearance Obesity Hyperlipidemia Hypertensive heart disease without heart failure Coronary arteriosclerosis Family History Other No significant family history Social History Smoking Status: Never smoker alcohol intake: never substance use type: denies use current occupational status: other Travel in the last 8 weeks: None PM Subjective & Objective Subjective Subjective:: Patient is a pleasant 73-year-old male who presents today for follow-up. He rates his pain currently a 4 out of 10 however does state the pain goes to a 7 out of 10 very quickly with increased activity. He denies any new trauma or injury. He does state the pain is all in his low back and does radiate into his legs with numbness and tingling. Patient does state the pain interferes with his ability perform activities of daily living such as cooking and cleaning. Patient did previously have a lumbar epidural back in July that provided 90 to 95% improvement for nearly 3 months however when he went to repeat this injection in October they were unable to access this level and he only got 50% relief with that injection. Patient is interested in repeating his prior injections. Patient does also make mention that he has been recently diagnosed with a kidney stone and that he is going to the urologist February 24 and he is not sure whether or not he will have to have surgery. Patient does state that he had about 3 different procedures last year due to kidney stones. Patient has been prescribed tramadol 50 mg at bedtime from our office however he states he is only taking maybe 2 of those tablets and then when he does take them they help. He does not need any refills. His Aly has been reviewed and is appropriate. Review of Systems: General: No recent weight changes, no fever, no sleep disturbances Respiratory: No cough, no shortness of air, no recurring pulmonary infections Cardiovascular/peripheral vascular: No chest pain, no palpitations, no edema, no shortness of breath Gastrointestinal: No new onset incontinence, normal bowel movements reported Genitourinary: No new onset incontinence Musculoskeletal: Low back pain, leg pain Psychiatric: [Normal mood/affect] Neurological: [Denies weakness in extremities], [denies balance issues] Pain at rest (0-10 scale): 7 Objective Objective:: Physical Exam: General: Alert and oriented x3, no acute distress, pleasant and cooperative Lungs: Respirations even and unlabored, symmetrical chest expansion Eyes: PERRL Musculoskeletal: Flexion and extension of lumbar [spine] somewhat guarded secondary to pain, [antalgic gait noted] Neurological: Speech clear, no gross sensory deficit Has patient had previous pain injection?: No Conservative treatment options previously tried: Home exercise plan Length of treatment: Longer than 12 weeks Meds Home Medications and Allergies Home Medications ?Medication ?Instructions ?Recorded ?Confirmed ?Type cholecalciferol (vitamin D3) 25 1,000 unit PO DAILY SUPPLIMENT 07/05/17 02/14/24 History mcg (1,000 unit) capsule metoprolol succinate 100 mg 100 mg PO DAILY BLOOD PRESSURE 07/05/17 02/14/24 History tablet,extended release 24 hr (Toprol XL) valsartan 80 mg tablet (Diovan) 80 mg PO DAILY BLOOD PRESSURE 07/05/17 02/14/24 History evolocumab 140 mg/mL subcutaneous 140 mg SQ Q2W . 07/06/17 02/14/24 History pen injector (Anthony Sidhu) clopidogrel 75 mg tablet 75 mg PO DAILY Blood Thinner 10/06/22 02/14/24 History gabapentin 300 mg capsule 300 mg PO BID Pain 10/06/22 02/14/24 History mupirocin 2 % topical ointment 1 applicatio TP TID Skin Condition 01/18/23 02/14/24 History tramadol 50 mg tablet 50 mg PO HS #30 tabs 01/24/24 02/14/24 Rx New Prescriptions to Start Prescriptions: Allergies Allergy/AdvReac Type Severity Reaction Status Date / Time azithromycin [AZITHROMYCIN] Allergy Unknown Verified 11/23/23 10:36 Penicillins [PENICILLINS] Allergy Unknown Verified 11/23/23 10:36 cefdinir Allergy Verified 11/23/23 10:36 morphine [MORPHINE] AdvReac Unknown Nausea Verified 11/23/23 10:36 Assessment and Plan *Assessment and plan (1) Lumbar radiculopathy: Status: Acute Category: Medical Code(s): M54.16 - Radiculopathy, lumbar region (2) Degenerative disc disease, lumbar: Status: Acute Category: Medical Code(s): M51.36 - Other intervertebral disc degeneration, lumbar region (3) Lumbar post-laminectomy syndrome: Status: Acute Category: Medical Code(s): M96.1 - Postlaminectomy syndrome, not elsewhere classified Plan Patient is experiencing significant pain in his low back with numbness and tingling radiating into his lower extremities. Patient did have positive leg raise. I did discuss with the patient that he may benefit from a lumbar epidural steroid injection. Risk and benefits were discussed with the patient and he would like to proceed forward with this plan of care. Patient's last epidural in October did provide 50% relief however the one in July did last 3 months and provided about 90 to 95% improvement. Patient did have that injection at the L3-L4 epidural space. I did discuss that we will schedule for this level. Patient has tried and failed conservative therapy including continued at home stretching exercise for longer than 12 weeks. Patient will be scheduled for an LESI L3-L4 under fluoroscopy. Patient has been instructed to contact the clinic with any concerns before the next appointment. Dr. Ramirez has reviewed this note and agrees with this plan of care. This note was dictated using voice recognition software and make contain errors or omissions. All injections are used with Lidocaine or Bupivacaine and Depo Medrol.
== END 2024-02-14 23:59 | disposition home or self-care (01) ==
LOC: SC.PAIN 09:09
PROVIDERS: PCP Family Medicine; Visit Provider Nurse Practitioner Family
DX: M96.1 Postlaminectomy syndrome, not elsewhere classified; M51.16 Intervertebral disc disorders with radiculopathy, lumbar region; Z73.89 Other problems related to life management difficulty
CPT/HCPCS: 99212; G0463

== ENCOUNTER 2024-03-29 22:01 | Observation (INO) | payer MEDICARE, SELFPAY ==
[2024-03-29 22:20] VITALS: BP 153/92; PULSE 67; RESP 20; TEMP 36.7; O2SAT 97; BMI 30.1
[2024-03-29 22:50] VITALS: PULSE 70; O2SAT 94
[2024-03-29 23:00] VITALS: BP 131/91; PULSE 60; O2SAT 94
--- NOTE | 2024-03-29 23:01 | CT_ITS ---
PROCEDURE INFORMATION: Exam: CTA Neck With Contrast Exam date and time: 03/29/2024 11:53 PM Age: 73 years old Clinical indication: Stroke-like symptoms; Right facial droop; Additional info: Right facial droop. Submental and maxillary swell TECHNIQUE: Imaging protocol: Computed tomographic angiography of the neck with contrast. Exam focused on the cervical segments of the vasculature. 3D rendering (Not supervised by radiologist): MIP and/or 3D reconstructed images were created by the technologist. Radiation optimization: All CT scans at this facility use at least one of these dose optimization techniques: automated exposure control; mA and/or kV adjustment per patient size (includes targeted exams where dose is matched to clinical indication); or iterative reconstruction. Contrast material: ISOVUE; Contrast volume: 80 ml; Contrast route: INTRAVENOUS (IV); COMPARISON: CT CERVICAL SPINE WO CON 10/10/2022 5:05 AM FINDINGS: Right common carotid artery: No stenosis. No dissection or occlusion. Right internal carotid artery: No stenosis of the extracranial segment. No dissection or occlusion. Right external carotid artery: No occlusion or stenosis of the origin. Left common carotid artery: No stenosis. No dissection or occlusion. Left internal carotid artery: No stenosis of the extra-cranial segment. No dissection or occlusion. Left external carotid artery: No occlusion or stenosis of the origin. Right vertebral artery: No stenosis. No dissection or occlusion. Left vertebral artery: Dominant left vertebral artery, normal variant. No evidence of dissection, occlusion or significant stenosis. Soft tissues: Maxillofacial CT reported separately. Bones/joints: Multi-level degenerative changes in the cervical spine result in varying degrees of spinal canal stenosis and neuroforaminal narrowing. Stable appearance of-operative changes related to prior anterior discectomy and cervical fusion. IMPRESSION: 1. No evidence of occlusion, significant stenosis, dissection or aneurysm in the extracranial cerebral arteries. 2. Chronic ancillary findings are detailed above. REFERENCES: NASCET CRITERIA. The degree of stenosis in the cervical segment of the internal carotid artery is based on NASCET criteria. Normal is no stenosis. Mild is less than 50% stenosis. Moderate is 50-69% stenosis. Severe is 70% to 99% stenosis. Total occlusion is no detectable patent lumen.
--- NOTE | 2024-03-29 23:01 | CT_ITS ---
PROCEDURE INFORMATION: Exam: CTA Head With Contrast, Arteriography Exam date and time: 03/29/2024 11:53 PM Age: 73 years old Clinical indication: Stroke-like symptoms; Right facial droop; Additional info: Right facial droop. Submental and maxillary swell TECHNIQUE: Imaging protocol: Computed tomographic angiography of the head with contrast. Exam focused on the arteries. 3D rendering (Not supervised by radiologist): MIP and/or 3D reconstructed images were created by the technologist. Radiation optimization: All CT scans at this facility use at least one of these dose optimization techniques: automated exposure control; mA and/or kV adjustment per patient size (includes targeted exams where dose is matched to clinical indication); or iterative reconstruction. Contrast material: ISOVUE; Contrast volume: 80 ml; Contrast route: INTRAVENOUS (IV); COMPARISON: CT ANGIO HEAD 03/29/2024 11:53 PM FINDINGS: ANTERIOR CIRCULATION: Right internal carotid artery: Mild (less than 50%) stenosis in the right internal carotid artery secondary to atherosclerotic plaque. No occlusion, dissection or aneurysm. Right middle cerebral artery: No occlusion or significant stenosis. No aneurysm. Right anterior cerebral artery: No occlusion or significant stenosis. No aneurysm. Left internal carotid artery: Mild (less than 50%) stenosis in the left internal carotid artery secondary to atherosclerotic plaque. No occlusion, dissection or aneurysm. Left middle cerebral artery: No occlusion or significant stenosis. No aneurysm. Left anterior cerebral artery: Hypoplastic a1 segment of the left anterior cerebral artery compensated via the anterior communicating artery and contralateral MIGUEL. No occlusion or significant stenosis distally. No aneurysm. POSTERIOR CIRCULATION: Right vertebral artery: No occlusion or significant stenosis. No aneurysm. Left vertebral artery: No occlusion or significant stenosis. No aneurysm. Basilar artery: Hypoplastic V4 segment in the right vertebral artery from the level of the posterior inferior cerebellar artery to the basilar confluence, within normal limits for a non-dominant vertebral artery. No aneurysm or focal stenosis. Right posterior cerebral artery: No occlusion or significant stenosis. No aneurysm. Left posterior cerebral artery: No occlusion or significant stenosis. No aneurysm. Brain: No abnormally enhancing brain lesion, mass effect, or midline shift. Cerebral ventricles: No hydrocephalus. Bones/joints: No acute calvarial or skull base fracture. Soft tissues: Maxillofacial CT reported separately. IMPRESSION: 1. No evidence of high-grade stenosis, occlusion, or aneurysm in the intracranial cerebral arteries. 2. Mild (less than 50%) stenosis in the bilateral internal carotid arteries secondary to atherosclerotic plaque.
--- NOTE | 2024-03-29 23:02 | CT_ITS ---
PROCEDURE INFORMATION: Exam: CT Head Without Contrast Exam date and time: 03/29/2024 11:50 PM Age: 73 years old Clinical indication: Stroke-like symptoms; Right facial droop; Additional info: Right facial droop. Submental and maxillary swell TECHNIQUE: Imaging protocol: Computed tomography of the head without contrast. Radiation optimization: All CT scans at this facility use at least one of these dose optimization techniques: automated exposure control; mA and/or kV adjustment per patient size (includes targeted exams where dose is matched to clinical indication); or iterative reconstruction. Other technique: STROKE PROTOCOL was implemented. COMPARISON: CT HEAD/BRAIN WO CON 03/29/2024 11:50 PM FINDINGS: Brain: No acute intracranial hemorrhage. No intra- or extra-axial fluid collection. No mass effect or midline shift. Chronic appearing infarct in the right occipitotemporal cortex. Chronic lacunar infarcts in the right basal ganglia and left garcia radiata. Periventricular white matter changes compatible with chronic hypertensive microvascular disease. No evidence of acute/subacute infarct. Cerebral ventricles: No hydrocephalus. Paranasal sinuses: No air fluid levels in the visualized paranasal sinuses. Mastoid air cells: Visualized mastoid air cells are clear. Bones: No evidence of acute calvarial or skull base fracture. Soft tissues: Unremarkable. IMPRESSION: 1. No evidence of acute intracranial hemorrhage or acute/subacute infarct. 2. Chronic appearing infarct in the right occipitotemporal cortex. 3. Chronic lacunar infarcts in the right basal ganglia and left garcia radiata. 4. Periventricular white matter changes compatible with chronic hypertensive microvascular disease. ASSESSMENT: ASPECTS ([place] Stroke Program Early CT Score) is 10.
--- NOTE | 2024-03-29 23:03 | XR_ITS ---
PROCEDURE INFORMATION: Exam: XR Chest Exam date and time: 03/29/2024 11:41 PM Age: 73 years old Clinical indication: Other: CVA TECHNIQUE: Imaging protocol: Radiologic exam of the chest. Views: 1 view. COMPARISON: CR XR CHEST PORTABLE 03/29/2024 11:41 PM FINDINGS: Lungs: No evidence of airspace infiltrate. No pulmonary edema. Pleural spaces: No visible pleural effusion. No pneumothorax. Heart/Mediastinum: Cardiomediastinal silouhette is within normal limits. Bones/joints: No evidence of acute osseous abnormality. IMPRESSION: No acute findings.
--- NOTE | 2024-03-29 23:32 | ED_ITS ---
Discharge Plan Disposition Patient Disposition: Admitted Condition: Fair Clinical Impressions Clinical Impression: Abscess, dental, Cellulitis of face, Facial droop Discharge ED Provider: Chalino Chang General Adult HPI <Chalino Chang MD - Last Filed: 03/29/24 23:42> General Chief complaint: PAIN Stated complaint: face swelling soa sinus pressure Time Seen by Provider: 03/29/24 22:47 Mode of Arrival: Ambulatory Source of Information: Patient Limitations: No Limitations Description of Symptoms (Recalled from ER Triage Doc. by RN): face and mouth swelling and pain History of Present Illness HPI narrative: Please note that above description of symptoms, in this electronic medical record under categorization of recalled from ER triage doctor by RN are reflective of an initial nursing assessment, however, is not reflective of my full history and physical exam that was personally taken and clarified. Consequentially, this preceding description of symptoms, which may include the patient's categorized chief complaint in the EMR, do not reflect my personal clinical impression, and the ultimate description of history of present illness and patient stated complaints should be deferred to this section of the note. Unless stated otherwise or congruent with this section of the note, additional signs, symptoms, or incongruence should be interpreted as inaccurate with my clinical impression. Related Data Home Medications ?Medication ?Instructions ?Recorded ?Confirmed cholecalciferol (vitamin D3) 25 1,000 unit PO DAILY SUPPLIMENT 07/05/17 03/27/24 mcg (1,000 unit) capsule metoprolol succinate 100 mg 100 mg PO DAILY BLOOD PRESSURE 07/05/17 03/27/24 tablet,extended release 24 hr (Toprol XL) valsartan 80 mg tablet (Diovan) 80 mg PO DAILY BLOOD PRESSURE 07/05/17 03/27/24 evolocumab 140 mg/mL subcutaneous 140 mg SQ Q2W . 07/06/17 03/27/24 pen injector (Repatha SureClick) clopidogrel 75 mg tablet 75 mg PO DAILY Blood Thinner 10/06/22 03/27/24 gabapentin 300 mg capsule 300 mg PO BID Pain 10/06/22 03/27/24 mupirocin 2 % topical ointment 1 applicatio topical TID Skin 01/18/23 03/27/24 Condition empagliflozin 10 mg tablet 10 mg PO DAILY Diabetes 02/14/24 03/27/24 (Jardiance) aspirin 81 mg tablet,delayed 81 mg PO DAILY 03/27/24 03/27/24 release (Adult Low Dose Aspirin) Previous Rx's ?Medication ?Instructions ?Recorded tramadol 50 mg tablet 50 mg PO HS #30 tabs 01/24/24 Allergies Allergy/AdvReac Type Severity Reaction Status Date / Time azithromycin (AZITHROMYCIN) Allergy Unknown Verified 03/27/24 08:54 Penicillins (PENICILLINS) Allergy Unknown Verified 03/27/24 08:54 cefdinir Allergy Verified 03/27/24 08:54 morphine (MORPHINE) AdvReac Unknown Nausea Verified 03/27/24 08:54 PFSH <Chalino Chang MD - Last Filed: 03/29/24 23:42> [facility] Disclaimer: The information contained in this section may have been updated after the patient was seen, as this information can be updated by other users. Medical History LV dysfunction Encounter for pre-operative cardiovascular clearance Obesity Hyperlipidemia Hypertensive heart disease without heart failure Coronary arteriosclerosis Family History Other No significant family history Social History Smoking Status: Never smoker alcohol intake: never substance use type: denies use current occupational status: other Travel in the last 8 weeks: None Other Medical History Have you received the Flu Vaccine for this season: Yes Have you received the Pneumonia Vaccine: Yes <Chalino Chnag MD - Last Filed: 03/29/24 23:42> ROS Obtained: Yes All systems reviewed & no additional complaints except as documented Physical Exam <Chalino Chang MD - Last Filed: 03/29/24 23:42> General General appearance: alert Head Head exam: atraumatic, normocephalic and other (Right-sided facial droop sparing the forehead) Eye Eye exam: Present normal appearance, PERRL and EOMI ENT ENT exam: Present other (Lower lip soft tissue swelling with tenderness in the submental region. No induration. No tongue elevation. No evidence of tonsillitis, exudate, pharyngeal erythema, uvular deviation, palatal swelling, trismus, external neck swelling, submental induration, dental abscess, angioedema, or other abn) Neck Neck exam: Present normal inspection, full ROM and trachea midline Respiratory Respiratory exam: Absent respiratory distress, wheezes, stridor, accessory muscle use or prolonged expiratory phase Cardiovascular Cardiovascular exam: Present other (Pulses equal symmetric in upper and lower extremities) Abdominal Exam Abdominal exam: Present soft; Absent distention, tenderness or pulsatile mass Extremities Exam Extremities exam: Absent edema Neurological Exam Neurological exam: Present alert, oriented X3 and normal gait; Absent CN II-XII intact (New right sided facial droop sparing forehead) or motor sensory deficit Skin Skin exam: Present warm and dry; Absent diaphoresis or erythema Medical Decision Making <Chalino Chang MD - Last Filed: 03/29/24 23:42> Medical Records Medical records reviewed: Yes I reviewed the patient's medical records. Screening: Per USPSTF and CDC recommendations, given the prevalence of disease in our region, it is our hospital?s policy to screen for HIV and viral Hepatitis for all patients aged 18 and over and those with ongoing risk factors. Aly Inquiry Pt receiving controlled substance: No Aly was queried for this patient: No Vital Signs: 03/29/24 22:20 03/29/24 22:50 03/29/24 23:00 Temperature 98.1 F Temperature Source Oral Pulse Rate 70 60 Pulse Rate [Right Brachial] 67 Respiratory Rate 20 Blood Pressure 131/91 H Blood Pressure [Right Arm] 153/92 H Blood Pressure Mean [Right Arm] 112 Blood Pressure Source [Right Arm] Automatic Cuff Blood Pressure Position [Right Arm] Sitting 02 Sat by Pulse Oximetry 97 94 L 94 L Oxygen Delivery Method Room Air 03/30/24 00:08 03/30/24 00:31 03/30/24 01:00 Temperature Temperature Source Pulse Rate 60 69 67 Pulse Rate [Right Brachial] Respiratory Rate Blood Pressure 145/91 H 153/101 H 143/101 H Blood Pressure [Right Arm] Blood Pressure Mean [Right Arm] Blood Pressure Source [Right Arm] Blood Pressure Position [Right Arm] 02 Sat by Pulse Oximetry 99 94 L 95 Oxygen Delivery Method 03/30/24 01:45 03/30/24 02:00 03/30/24 02:30 Temperature Temperature Source Pulse Rate 75 70 75 Pulse Rate [Right Brachial] Respiratory Rate Blood Pressure 123/77 138/88 137/93 H Blood Pressure [Right Arm] Blood Pressure Mean [Right Arm] Blood Pressure Source [Right Arm] Blood Pressure Position [Right Arm] 02 Sat by Pulse Oximetry 96 93 L 96 Oxygen Delivery Method Lab Data Lab Results 03/29/24 23:35: WBC 13.4 H, RBC 5.92, Hgb 19.2 H, Hct 58.9 H, MCV 99.5 H, MCH 32.1 H, MCHC 32.2, RDW 13.3, Plt Count 305, MPV 7.8, Neut % (Auto) 77.5, Lymph % (Auto) 13.2, [place] % (Auto) 6.5, Eos % (Auto) 2.1, Baso % (Auto) 0.8, Neut # (Auto) 10.4 H, Lymph # (Auto) 1.8, [place] # (Auto) 0.9, Eos # (Auto) 0.3, Baso # (Auto) 0.1, PT 10.8, INR 0.96, APTT 26.4, Sodium 140, Potassium 4.9, Chloride 106, Carbon Dioxide 27, Anion Gap 11.9, BUN 34 H, Creatinine 1.30 H, Estimated Creat Clear 68, Estimated GFR 54 L, Est GFR ( Amer) 65, Glucose 91, Calcium 9.7, Total Bilirubin 0.7, AST 30, ALT 21, Alkaline Phosphatase 83, Troponin I < 0.01, Total Protein 7.1, Albumin 4.3, Globulin 2.8, Albumin/Globulin Ratio 1.5 03/29/24 23:38: Lactate 1.5 03/29/24 23:55: HIV 1&2 Antibody Rapid Nonreactive 03/29/24 23:35 03/29/24 23:35 Orders (Tests/Meds): ED MEDICATIONS Generic Name Dose Route Start Last Admin Trade Name Freq PRN Reason Stop Dose Admin Benzocaine/Butamben/Tetracaine HCl 1 gm 03/30/24 01:24 Tetracaine/Benzocaine/Butamben 56 Gm [place] TP 04/29/24 01:23 NEEDED PRN pain Ampicillin Sodium/Sulbactam 100 mls @ 200 mls/hr 03/30/24 01:15 03/30/24 01:17 Sodium 3 gm/ Sodium Chloride IV 04/09/24 01:14 200 mls/hr Q6H FAY Administration Discontinued Medications Generic Name Dose Route Start Last Admin Trade Name Freq PRN Reason Stop Dose Admin Clindamycin Phosphate 600 mg in 50 mls @ 100 mls/hr 03/30/24 01:06 03/30/24 01:14 Clindamycin 600mg/50ml D5w Premix IV 03/30/24 01:35 Not Given ONCE ONE Iopamidol 80 ml 03/30/24 00:04 03/30/24 00:06 Iopamidol-370 (76%);100ml Bottle IV 03/30/24 00:05 80 ml ONCE ONE Administration Oxycodone HCl 5 mg 03/30/24 00:02 03/30/24 00:05 Oxycodone 5mg Immediate Release Tablet PO 03/30/24 00:03 5 mg ONCE ONE Administration Sodium Chloride 50 ml 03/30/24 00:04 03/30/24 00:06 0.9 % Sodium Chloride 50 Ml Vial IV 03/30/24 00:05 50 ml ONCE ONE Administration Sodium Chloride 10 ml 03/30/24 00:04 03/30/24 00:06 Sodium Chloride 0.9% 10ml Syr (Rad Only) IV 03/30/24 00:05 10 ml ONCE ONE Administration ORDERS Category Date Time Status CT angio head Stat Cat Scan 03/29/24 23:[address] angio neck Stat Cat Scan 03/29/24 23:[address] facial bones w con Stat Cat Scan 03/29/24 23:[address] head/brain wo con Stat Cat Scan 03/29/24 23:02 Completed XR chest portable Stat Exams 03/29/24 23:03 Completed Complete Blood Count Auto Diff Stat Lab 03/29/24 23:35 Completed Comprehensive Metabolic Panel Stat Lab 03/29/24 23:35 Completed HIV (1&2) Antibody Rapid Stat Lab 03/29/24 23:55 Completed Hep C Ab with Reflex to RNA Stat Lab 03/29/24 23:55 Received Lactic Acid Stat Lab 03/29/24 23:38 Completed PT INR [Prothrombin Time INR] Stat Lab 03/29/24 23:35 Completed PTT [Activated Partial Thrombo Time] Stat Lab 03/29/24 23:35 Completed Troponin I Q3H Lab 03/30/24 02:06 Received Troponin I Q3H Lab 03/30/24 05:15 Ordered Troponin I Stat Lab 03/29/24 23:35 Completed Blood Culture Stat Micro 03/30/24 00:19 Received Medical Decision Narrative: 73-year-old male history of hypertension, hyperlipidemia, CAD, 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 Patient states that he has had a sinus infection for the past couple of weeks. Getting worse despite being on clindamycin. Now having lower lip swelling and tenderness underneath his jaw. No fevers or chills, vomiting, difficulty or pain with swallowing. Chest pain getting worse. History obtained with patient and family. On arrival, patient in no acute distress. He does have a new right-sided facial droop, which family states was not present previously. Patient denies any other weakness anywhere else. Lower lip soft tissue swelling with tenderness in the submental region. No induration. No tongue elevation. No evidence of tonsillitis, exudate, pharyngeal erythema, uvular deviation, palatal swelling, trismus, external neck swelling, submental induration, dental abscess, angioedema, or other abnormality. He is tender in his submental region, but no outward signs of abnormality. Range of motion of neck intact and full. No evidence of lymphadenopathy. Cardiopulmonary exam normal. Differential includes soft tissue infection, dental abscess, Armando's angina, CVA, metabolic abnormality, among others. Patient placed on continuous cardiac monitoring and oximetry with initial blood pressure 153/92, pulse 67, O2 sat 97 on room air. Prior to workup, care handed off to oncoming physician. Bezel Cutter disclaimer Much of this encounter note is an electronic natural resource economist spoken language to printed text. Electronic natural resource economist of the spoken language may permit errors. Although I have reviewed the note, some errors may still exist. <Skip Garrett MD - Last Filed: 03/30/24 02:38> Vital Signs: 03/29/24 22:20 03/29/24 22:50 03/29/24 23:00 Temperature 98.1 F Temperature Source Oral Pulse Rate 70 60 Pulse Rate [Right Brachial] 67 Respiratory Rate 20 Blood Pressure 131/91 H Blood Pressure [Right Arm] 153/92 H Blood Pressure Mean [Right Arm] 112 Blood Pressure Source [Right Arm] Automatic Cuff Blood Pressure Position [Right Arm] Sitting 02 Sat by Pulse Oximetry 97 94 L 94 L Oxygen Delivery Method Room Air 03/30/24 00:08 03/30/24 00:31 03/30/24 01:00 Temperature Temperature Source Pulse Rate 60 69 67 Pulse Rate [Right Brachial] Respiratory Rate Blood Pressure 145/91 H 153/101 H 143/101 H Blood Pressure [Right Arm] Blood Pressure Mean [Right Arm] Blood Pressure Source [Right Arm] Blood Pressure Position [Right Arm] 02 Sat by Pulse Oximetry 99 94 L 95 Oxygen Delivery Method 03/30/24 01:45 03/30/24 02:00 03/30/24 02:30 Temperature Temperature Source Pulse Rate 75 70 75 Pulse Rate [Right Brachial] Respiratory Rate Blood Pressure 123/77 138/88 137/93 H Blood Pressure [Right Arm] Blood Pressure Mean [Right Arm] Blood Pressure Source [Right Arm] Blood Pressure Position [Right Arm] 02 Sat by Pulse Oximetry 96 93 L 96 Oxygen Delivery Method Lab Data Lab Results 03/29/24 23:35: WBC 13.4 H, RBC 5.92, Hgb 19.2 H, Hct 58.9 H, MCV 99.5 H, MCH 32.1 H, MCHC 32.2, RDW 13.3, Plt Count 305, MPV 7.8, Neut % (Auto) 77.5, Lymph % (Auto) 13.2, [place] % (Auto) 6.5, Eos % (Auto) 2.1, Baso % (Auto) 0.8, Neut # (Auto) 10.4 H, Lymph # (Auto) 1.8, [place] # (Auto) 0.9, Eos # (Auto) 0.3, Baso # (Auto) 0.1, PT 10.8, INR 0.96, APTT 26.4, Sodium 140, Potassium 4.9, Chloride 106, Carbon Dioxide 27, Anion Gap 11.9, BUN 34 H, Creatinine 1.30 H, Estimated Creat Clear 68, Estimated GFR 54 L, Est GFR ( Amer) 65, Glucose 91, Calcium 9.7, Total Bilirubin 0.7, AST 30, ALT 21, Alkaline Phosphatase 83, Troponin I < 0.01, Total Protein 7.1, Albumin 4.3, Globulin 2.8, Albumin/Globulin Ratio 1.5 03/29/24 23:38: Lactate 1.5 03/29/24 23:55: HIV 1&2 Antibody Rapid Nonreactive Orders (Tests/Meds): ED MEDICATIONS Generic Name Dose Route Start Last Admin Trade Name Freq PRN Reason Stop Dose Admin Benzocaine/Butamben/Tetracaine HCl 1 gm 03/30/24 01:24 Tetracaine/Benzocaine/Butamben 56 Gm [place] TP 04/29/24 01:23 NEEDED PRN pain Ampicillin Sodium/Sulbactam 100 mls @ 200 mls/hr 03/30/24 01:15 03/30/24 01:17 Sodium 3 gm/ Sodium Chloride IV 04/09/24 01:14 200 mls/hr Q6H FAY Administration Discontinued Medications Generic Name Dose Route Start Last Admin Trade Name Jemal PRN Reason Stop Dose Admin Clindamycin Phosphate 600 mg in 50 mls @ 100 mls/hr 03/30/24 01:06 03/30/24 01:14 Clindamycin 600mg/50ml D5w Premix IV 03/30/24 01:35 Not Given ONCE ONE Iopamidol 80 ml 03/30/24 00:04 03/30/24 00:06 Iopamidol-370 (76%);100ml Bottle IV 03/30/24 00:05 80 ml ONCE ONE Administration Oxycodone HCl 5 mg 03/30/24 00:02 03/30/24 00:05 Oxycodone 5mg Immediate Release Tablet PO 03/30/24 00:03 5 mg ONCE ONE Administration Sodium Chloride 50 ml 03/30/24 00:04 03/30/24 00:06 0.9 % Sodium Chloride 50 Ml Vial IV 03/30/24 00:05 50 ml ONCE ONE Administration Sodium Chloride 10 ml 03/30/24 00:04 03/30/24 00:06 Sodium Chloride 0.9% 10ml Syr (Rad Only) IV 03/30/24 00:05 10 ml ONCE ONE Administration ORDERS Category Date Time Status CT angio head Stat Cat Scan 03/29/24 23:[address] angio neck Stat Cat Scan 03/29/24 23:[address] facial bones w con Stat Cat Scan 03/29/24 23:[address] head/brain wo con Stat Cat Scan 03/29/24 23:02 Completed XR chest portable Stat Exams 03/29/24 23:03 Completed Complete Blood Count Auto Diff Stat Lab 03/29/24 23:35 Completed Comprehensive Metabolic Panel Stat Lab 03/29/24 23:35 Completed HIV (1&2) Antibody Rapid Stat Lab 03/29/24 23:55 Completed Hep C Ab with Reflex to RNA Stat Lab 12/04/24 23:55 Received Lactic Acid Stat Lab 03/29/24 23:38 Completed PT INR [Prothrombin Time INR] Stat Lab 03/29/24 23:35 Completed PTT [Activated Partial Thrombo Time] Stat Lab 03/29/24 23:35 Completed Troponin I Q3H Lab 03/30/24 02:06 Received Troponin I Q3H Lab 03/30/24 05:15 Ordered Troponin I Stat Lab 03/29/24 23:35 Completed Blood Culture Stat Micro 03/30/24 00:19 Received Medical Decision Narrative: 73-year-old male history of hypertension, hyperlipidemia, CAD, 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 Patient states that he has had a sinus infection for the past couple of weeks. Getting worse despite being on clindamycin. Now having lower lip swelling and tenderness underneath his jaw. No fevers or chills, vomiting, difficulty or pain with swallowing. Chest pain getting worse. History obtained with patient and family. On arrival, patient in no acute distress. He does have a new right-sided facial droop, which family states was not present previously. Patient denies any other weakness anywhere else. Lower lip soft tissue swelling with tenderness in the submental region. No induration. No tongue elevation. No evidence of tonsillitis, exudate, pharyngeal erythema, uvular deviation, palatal swelling, trismus, external neck swelling, submental induration, dental abscess, angioedema, or other abnormality. He is tender in his submental region, but no outward signs of abnormality. Range of motion of neck intact and full. No evidence of lymphadenopathy. Cardiopulmonary exam normal. Differential includes soft tissue infection, dental abscess, Ramando's angina, CVA, metabolic abnormality, among others. Patient placed on continuous cardiac monitoring and oximetry with initial blood pressure 153/92, pulse 67, O2 sat 97 on room air. Prior to workup, care handed off to oncoming physician. Bezel Cutter disclaimer Much of this encounter note is an electronic natural resource economist spoken language to printed text. Electronic natural resource economist of the spoken language may permit errors. Although I have reviewed the note, some errors may still exist. Garrett: I assumed care of this patient at 2300 hrs. with labs and imaging pending. I agree with the assessment and plan from Dr. Chang. On my exam there was maybe very mild right sided facial droop, nothing obvious. CT imaging of the head without contrast was personally interpreted does not demonstrate acute intracranial abnormality, there do appear to be chronic changes. See radiology read for final interpretation. CT angiography negative for large vessel occlusion. EKG personally turbid to demonstrate sinus rhythm, rate 67, normal axis, normal MA and QTc, no STEMI. Labs notable for leukocytosis, elevated hemoglobin, normal platelets, mild kidney dysfunction which appears to be at baseline based my review of previous labs, PT/INR, APTT normal. [place] radiologist called me and discussed the imaging with me, she stated that the patient has chronic changes, nothing acute, we also discussed the face CT which she stated patient appears to have an odontogenic abscess but there is no extension into the sublingual or submandibular space, no findings of deep space infection. I discussed results with patient and family. On further reassessment patient has no facial droop. We discussed the possibility of inflammation from infection causing his brief episode of facial droop, TIA, or old infarcts being related. Patient does not require transfer for neurology services at this time. He will be appropriate for admission to the hospital for MRI. Patient requires admission to the hospital anyway for failure of outpatient oral antibiotics for his dental infection causing facial cellulitis. I discussed antibiotic options with the patient, he stated he had a reported childhood allergy of rash with penicillin. He and his family asked if he could try taking a penicillin antibiotic while hospitalized since he would be safe if he did have a reaction. We discussed risks and benefits of this, since he has been frequently on clindamycin in the past, I believe this is reasonable to try a different class of antibiotics. Patient is receiving Unasyn. He will be watched in the ER for at least 1 hour after administration to monitor for allergic reaction. I performed incision and drainage of the dental abscess. See procedure note. On reassessment over 30 minutes after the Unasyn infusion was started, patient remains asymptomatic and is tolerating it well. 1 hour and 15 minutes after receiving the Unasyn infusion, patient continued to be asymptomatic, resting comfortably. At this time he is appropriate for admission. I discussed this patient with the hospitalist including patient's needs for continued IV antibiotics as well as brain MRI for brief episode of facial droop. Family does state they are not sure he actually had facial droop earlier and is now stating he commonly has appearance of facial droop secondary to old stroke. Regardless, patient was graciously excepted for admission and admitted in stable condition. Procedures <Mikalah Garrett, MD - Last Filed: 03/30/24 02:38> Abscess I/D Site: oral Local Anesthetic: other anesthetic (Cetacaine topical spray) Technique: incised with #11 blade Amount of fluid expressed (mL): 1 Irrigation: Yes Packing used?: none Complications: bleeding (Mild, self resolved) Critical Care <Chalino Chang MD - Last Filed: 03/29/24 23:42> Critical Care Time Critical Care Time: No
--- NOTE | 2024-03-29 23:37 | CT_ITS ---
PROCEDURE INFORMATION: Exam: CT Maxillofacial With Contrast Exam date and time: 03/29/2024 11:57 PM Age: 73 years old Clinical indication: Jaw pain and maxilla pain; Additional info: Concern for submental infection TECHNIQUE: Imaging protocol: Computed tomography of the face with contrast. Radiation optimization: All CT scans at this facility use at least one of these dose optimization techniques: automated exposure control; mA and/or kV adjustment per patient size (includes targeted exams where dose is matched to clinical indication); or iterative reconstruction. Contrast material: ISOVUE; Contrast volume: 80 ml; Contrast route: IV; COMPARISON: CT ANGIO HEAD 03/29/2024 11:53 PM FINDINGS: Paranasal sinuses: No air-fluid levels. Orbital cavities: Globes and orbital structures are unremarkable. No evidence of retrobulbar hematoma. Teeth: Left mandibular incisor periapical lucency consistent with odontogenic abscess. There is evidence of cortical osteolysis anterior to the periapical lucency. There is no other evidence of odontogenic abscesses in the mandible or maxilla. Vasculature: Jugular veins and other vasculature surrounding the maxillofacial structures are patent with no evidence of acute inflammation. Bones: No evidence of acute fracture. Bilateral temporomandibular joints are congruent. Pterygoid plates and lamina papyracea are intact. Soft tissues: Left mandibular incisor odontogenic abscess extends into the periosteal soft tissues anterior to the mandibular mental protuberance where there is a focal fluid collection consistent with abscess measuring 1.5 x 1.5 x 1.0 cm in size. No evidence of focal fluid collection in the sublingual or submandibular space. IMPRESSION: Mandibular incisor odontogenic abscess with cortical osteolysis/sinus tract formation through the anterior mandibular cortex with abscess extending into the superficial subcutaneous soft tissues overlying the mental protuberance. No evidence of deep space soft tissue infection.
[2024-03-29 23:49] LABS: Basophils # 0.1 K/mm3 (0-0.2); Basophils % 0.8 % (0.1-2.0); Eosinophils # 0.3 K/mm3 (0.0-0.4); Eosinophils % 2.1 % (0.1-12.0); Hematocrit 58.9 % (42.0-52.0); Lymphocytes # 1.8 K/mm3 (0.7-4.5); Lymphocytes % 13.2 % (10-50); Mean Corpuscular HGB Conc 32.2 g/dL (31.8-35.4); Mean Corpuscular Hemoglobin 32.1 pg (27.0-31.2); Mean Corpuscular Volume 99.5 fl (80-94); Mean Platelet Volume 7.8 fl (7.4-10.4); Monocytes # 0.9 K/mm3 (0.1-1.0); Monocytes % 6.5 % (1.7-9.3); Neutrophils # 10.4 K/mm3 (1.8-7.8); Neutrophils % 77.5 % (37.0-80.0); Platelet Count 305 K/mm3 (142-424); Red Blood Count 5.92 M/mm3 (4.60-6.20); Red Cell Distribution Width 13.3 % (11.5-17.5); White Blood Count 13.4 K/mm3 (4.8-10.8)
[2024-03-29 23:52] LABS: Albumin Level 4.3 g/dl (3.5-5.0); Chloride 106 mmol/L (98-107); Sodium 140 mmol/L (136-145)
[2024-03-29 23:53] LABS: Potassium 4.9 mmoL/L (3.5-5.1)
[2024-03-29 23:55] LABS: Alanine Aminotransferase 21 U/L (12-78); Anion Gap 11.9 mEq/L (5-15); Aspartate Amino Transferase 30 U/L (17-59); Blood Urea Nitrogen 34 mg/dl (9-20); Carbon Dioxide 27 mmol/L (22.0-30.0); Creatinine Clearance Estimated 68 mL/min (50-200); Estimated Glomerular Filt Rate 54 ml/min (>60); GFR (African American) 65 ML/MIN (>60)
[2024-03-29 23:56] LABS: Albumin/Globulin Ratio 1.5 (1.1-1.8); Alkaline Phosphatase 83 U/L (38-126); Bilirubin,Total 0.7 mg/dl (0.2-1.3); Calcium 9.7 mg/dl (8.4-10.2); Globulin 2.8 g/dL (1.3-3.2); Glucose 91 mg/dl (74-100); Total Protein,Serum 7.1 g/dl (6.3-8.2)
[2024-03-29 23:59] LABS: Lactic Acid 1.5 mmol/L (0.7-2.1)
[2024-03-29 23:59] LABS: Hemoglobin 19.2 g/dL (14.1-18.0)
[2024-03-30] VITALS (9 sets, daily range): BP systolic 123–153; BP diastolic 77–101; PULSE 60–78; RESP 16–18; TEMP 36.7–36.8; O2SAT 93–99; BMI 28.8
[2024-03-30 00:01] LABS: Activated Partial Thrombo Time 26.4 seconds (22.8-30.6); INR 0.96 (0.9-1.1); Prothrombin Time 10.8 seconds (10.1-12.5)
[2024-03-30] MEDS: OXYCODONE 5MG IMMEDIATE RELEASE TABLET 5 MG PO (00:05)
[2024-03-30] MEDS: IOPAMIDOL-370 (76%);100ML BOTTLE 80 ML IV (00:06)
[2024-03-30] MEDS: 0.9 % SODIUM CHLORIDE 50 ML VIAL IV (00:06)
[2024-03-30] MEDS: SODIUM CHLORIDE 0.9% 10ML SYR (RAD ONLY) 10 ML IV (00:06)
--- NOTE | 2024-03-30 00:06 | ECG_ITS ---
APPROVED REPORT Exam: Resting ECG HR:67 bpm ECG Measurements Heart Rate 67 AXES OR 153 P 52 QRSd 90 QRS 6 QT 392 T 38 QTc 407 Conclusion SINUS RHYTHM NORMAL ECG Electronically signed by : DORIS DE LEON, 03/30/2024 03:20:03
[2024-03-30 00:09] LABS: Troponin I < 0.01 ng/ml (0.00-0.034)
--- NOTE | 2024-03-30 00:20 | PC.NURSE ---
2nd set of blood cultures drawn and sent
[2024-03-30 00:33] LABS: HIV (1&2) Antibody Rapid NONREACTIVE (NONREACTIVE)
[2024-03-30] MEDS: AMPICILLIN/SULBACTAM 3 GM in 0.9 % SODIUM CHLORIDE 100 ML IV ×2 (01:17→07:24)
[2024-03-30 02:36] LABS: Troponin I < 0.01 ng/ml (0.00-0.034)
--- NOTE | 2024-03-30 02:38 | PC.NURSE ---
Bed request was ordered prior to Dean being called, patient received medication and was held in ED for 30 minutes in case of reaction, tapper supervisor notified for need for bed.
--- NOTE | 2024-03-30 03:03 | P.HP_ITS ---
<Statement entered by Calvin Rubin MD - 04/02/24 14:26> I personally evaluated patient and agree with plan of care as outlined by RESEARCH PSYCHOLOGIST below. History of Present Illness *Admission Date: 03/30/24 *Reason for visit:: Facial swelling from dental abscess *History of present illness: This patient has facial swelling and a dental abscess on clindamycin which is not improving the problem., Patient has a history of very old allergy to penicillin. The ER physician feeling that Augmentin was needed/Zosyn, gave a test dose in the ER and evaluated the patient for an hour and a half. Seeing no signs of allergic reaction., Patient also had an I&D of the abscess small amount of pus was removed., Patient is interesting in that they have had stroke in the past. This time he did have some facial droop which has resolved., Question whether this was new TIA/stroke versus just involvement from having an infection to the face related to his old strokes is unknown at this time. Patient is stable but I do agree that having this evaluated in the a.m. an MRI to make sure that there is no new area of stroke or signs of infection from the facial abscess is prudent.. This will also give time to continue with IV antibiotics before converting to an oral Augmentin to treat the underlying infection for this dental problem. 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 Patient states that he has had a sinus infection for the past couple of weeks. Getting worse despite being on clindamycin. Now having lower lip swelling and tenderness underneath his jaw. No fevers or chills, vomiting, difficulty or pain with swallowing. Chest pain getting worse. History obtained with patient and family. On arrival, patient in no acute distress. He does have a new right-sided facial droop, which family states was not present previously. Patient denies any other weakness anywhere else. Lower lip soft tissue swelling with tenderness in the submental region. No induration. No tongue elevation. No evidence of tonsillitis, exudate, pharyngeal erythema, uvular deviation, palatal swelling, trismus, external neck swelling, submental induration, dental abscess, angioedema, or other abnormality. He is tender in his submental region, but no outward signs of abnormality. Range of motion of neck intact and full. No evidence of lymphadenopathy. Cardiopulmonary exam normal. Differential includes soft tissue infection, dental abscess, Armando's angina, CVA, metabolic abnormality, among others. Patient placed on continuous cardiac monitoring and oximetry with initial blood pressure 153/92, pulse 67, O2 sat 97 on room air. Prior to workup, care handed off to oncoming physician. Scale Reclamation Tender disclaimer Much of this encounter note is an electronic environmental project manager spoken language to printed text. Electronic environmental project manager of the spoken language may permit errors. Although I have reviewed the note, some errors may still exist. Garrett: I assumed care of this patient at 2300 hrs. with labs and imaging pending. I agree with the assessment and plan from Dr. Chang. On my exam there was maybe very mild right sided facial droop, nothing obvious. CT imaging of the head without contrast was personally interpreted does not demonstrate acute intracranial abnormality, there do appear to be chronic changes. See radiology read for final interpretation. CT angiography negative for large vessel occlusion. EKG personally turbid to demonstrate sinus rhythm, rate 67, normal axis, normal AL and QTc, no STEMI. Labs notable for leukocytosis, elevated hemoglobin, normal platelets, mild kidney dysfunction which appears to be at baseline based my review of previous labs, PT/INR, APTT normal. Reading radiologist called me and discussed the imaging with me, she stated that the patient has chronic changes, nothing acute, we also discussed the face CT which she stated patient appears to have an odontogenic abscess but there is no extension into the sublingual or submandibular space, no findings of deep space infection. I discussed results with patient and family. On further reassessment patient has no facial droop. We discussed the possibility of inflammation from infection causing his brief episode of facial droop, TIA, or old infarcts being related. Patient does not require transfer for neurology services at this time. He will be appropriate for admission to the hospital for MRI. Patient requires admission to the hospital anyway for failure of outpatient oral antibiotics for his dental infection causing facial cellulitis. I discussed antibiotic options with the patient, he stated he had a reported childhood allergy of rash with penicillin. He and his family asked if he could try taking a penicillin antibiotic while hospitalized since he would be safe if he did have a reaction. We discussed risks and benefits of this, since he has been frequently on clindamycin in the past, I believe this is reasonable to try a different class of antibiotics. Patient is receiving Unasyn. He will be watched in the ER for at least 1 hour after administration to monitor for allergic reaction. I performed incision and drainage of the dental abscess. See procedure note. On reassessment over 30 minutes after the Unasyn infusion was started, patient remains asymptomatic and is tolerating it well. 1 hour and 15 minutes after receiving the Unasyn infusion, patient continued to be asymptomatic, resting comfortably. At this time he is appropriate for admission. I discussed this patient with the hospitalist including patient's needs for continued IV antibiotics as well as brain MRI for brief episode of facial droop. Family does state they are not sure he actually had facial droop earlier and is now stating he commonly has appearance of facial droop secondary to old stroke. Regardless, patient was graciously excepted for admission and admitted in stable condition. [facility] Disclaimer: The information contained in this section may have been updated after the patient was seen, as this information can be updated by other users. Medical History (Updated 03/30/24 @ 03:41 by Geoff Latham APRN) H/O penicillin-type antibiotic allergy Bilateral leg pain History of CVA (cerebrovascular accident) Influenza-like illness Lumbar back sprain Sinusitis Bronchitis Infected sebaceous cyst of skin Hydronephrosis Cervical sprain Spinal stenosis, lumbar region with neurogenic claudication Lumbar post-laminectomy syndrome Lumbar radiculopathy Degenerative disc disease, lumbar Stroke Abscess, dental LV dysfunction Encounter for pre-operative cardiovascular clearance Obesity Hyperlipidemia Hypertensive heart disease without heart failure Coronary arteriosclerosis Family History Other No significant family history Social History Smoking Status: Never smoker alcohol intake: never substance use type: denies use current occupational status: other Travel in the last 8 weeks: None Other Medical History Have you received the Flu Vaccine for this season: Yes Have you received the Pneumonia Vaccine: Yes Review of Systems Constitutional Constitutional: Reports as per HPI Comments: Patient had facial droop that is now resolved. Noted that has had a dental abscess being treated with clindamycin and abscess and infection continues to worsen Eyes Eyes: Reports as per HPI ENT Ears, Nose, Mouth, and Throat: Reports as per HPI, Reports lip swelling and Reports tongue swelling *Cardiovascular Cardiovascular: Reports as per HPI *Respiratory Respiratory: Reports as per HPI *Gastrointestinal Gastrointestinal: Reports as per HPI *Genitourinary Genitourinary: Reports as per HPI *Musculoskeletal Musculoskeletal: Reports as per HPI Integumentary/Breasts Skin/Breast: Reports as per HPI *Neurologic Comments: Had facial droop that has now resolved Psychiatric Psychiatric: Reports as per HPI Comments: Patient gives a history of severe claustrophobia especially with MRI stating he would need medication to help him relax if he needed an MRI to scan his brain Endocrine Endocrine: Reports as per HPI Hematologic/Lymphatic Hematologic/Lymphatic: Reports as per HPI Allergic/Immunologic Allergic/Immunologic: Reports lip swelling and Reports tongue swelling Meds Home Medications and Allergies Home Medications ?Medication ?Instructions ?Recorded ?Confirmed ?Type cholecalciferol (vitamin D3) 25 1,000 unit PO DAILY SUPPLIMENT 07/05/17 03/27/24 History mcg (1,000 unit) capsule metoprolol succinate 100 mg 100 mg PO DAILY BLOOD PRESSURE 07/05/17 03/27/24 History tablet,extended release 24 hr (Toprol XL) valsartan 80 mg tablet (Diovan) 80 mg PO DAILY BLOOD PRESSURE 07/05/17 03/27/24 History evolocumab 140 mg/mL subcutaneous 140 mg SQ Q2W . 07/06/17 03/27/24 History pen injector (Anthony Sidhu) clopidogrel 75 mg tablet 75 mg PO DAILY Blood Thinner 10/06/22 03/27/24 History gabapentin 300 mg capsule 300 mg PO BID Pain 10/06/22 03/27/24 History mupirocin 2 % topical ointment 1 applicatio topical TID Skin 01/18/23 03/27/24 History Condition tramadol 50 mg tablet 50 mg PO HS #30 tabs 01/24/24 03/27/24 Rx empagliflozin 10 mg tablet 10 mg PO DAILY Diabetes 02/14/24 03/27/24 History (Jardiance) aspirin 81 mg tablet,delayed 81 mg PO DAILY 03/27/24 03/27/24 History release (Adult Low Dose Aspirin) New Prescriptions to Start Prescriptions: Allergies Allergy/AdvReac Type Severity Reaction Status Date / Time azithromycin (AZITHROMYCIN) Allergy Unknown Verified 03/27/24 08:54 Penicillins (PENICILLINS) Allergy Unknown Verified 03/27/24 08:54 cefdinir Allergy Verified 03/27/24 08:54 morphine (MORPHINE) AdvReac Unknown Nausea Verified 03/27/24 08:54 Exam Data for Last 24 hours Vital signs and Labs for Last 24 Hours: Temp Pulse Resp BP Pulse Ox O2 Del Method 98.1 F 75 16 137/93 H 96 Room Air 03/30/24 02:35 03/30/24 02:35 03/30/24 02:35 03/30/24 02:35 03/30/24 02:30 03/30/24 02:35 Laboratory Results - last 24 hr 03/29/24 23:35: WBC 13.4 H, RBC 5.92, Hgb 19.2 H, Hct 58.9 H, MCV 99.5 H, MCH 32.1 H, MCHC 32.2, RDW 13.3, Plt Count 305, MPV 7.8, Neut % (Auto) 77.5, Lymph % (Auto) 13.2, [place] % (Auto) 6.5, Eos % (Auto) 2.1, Baso % (Auto) 0.8, Neut # (Auto) 10.4 H, Lymph # (Auto) 1.8, [place] # (Auto) 0.9, Eos # (Auto) 0.3, Baso # (Auto) 0.1, PT 10.8, INR 0.96, APTT 26.4, Sodium 140, Potassium 4.9, Chloride 106, Carbon Dioxide 27, Anion Gap 11.9, BUN 34 H, Creatinine 1.30 H, Estimated Creat Clear 68, Estimated GFR 54 L, Est GFR ( Amer) 65, Glucose 91, Calcium 9.7, Total Bilirubin 0.7, AST 30, ALT 21, Alkaline Phosphatase 83, T roponin I < 0.01, Total Protein 7.1, Albumin 4.3, Globulin 2.8, Albumin/Globulin Ratio 1.5 03/29/24 23:38: Lactate 1.5 03/29/24 23:55: HIV 1&2 Antibody Rapid Nonreactive 03/30/24 02:06: Troponin I < 0.01 I & O for Last 24 hours: Intake & Output 03/27/24 03/28/24 03/29/24 03/30/24 05:59 05:59 05:59 05:59 Weight 210 lb Radiology Reports for the Last 24 Hours: The patient CT scan of his head showed 2 areas of old CVA., Also CT of the face showing an abscess into the anterior portion of the lower jaw Narrative: ER doctor did an I&D of the abscess., Also noting that the patient had a history of penicillin allergy from way back in earlier age. Unasyn has been given without any signs of allergic reaction as clindamycin was not working to clear up this infection Constitutional Constitutional: mild distress and cooperative Comments: Some facial pain mild headache *Routine HEENT Exam Head: Present normocephalic and atraumatic Eye: Present EOMI, PERRL and normal accommodation ENT: Present mucous membranes moist Comments: Lower lip is swollen with lower jaw slightly swollen to noting abscess with fa cial pain related to the infection *Routine Neck Exam Neck: Present supple and full ROM Comments: No meningeal signs found Routine Chest/Breast/Axilla Exam Comments: No chest wall tenderness or neck pain was noted *Routine Respiratory Exam Respiratory: Present distant breath sounds, normal respiratory effort, able to speak in complete sentences and symmetric chest movement *Routine Cardiovascular Exam Cardiovascular: Present RRR, Normal S1 and Normal S2 *Routine Abdominal Exam Abdominal: Present soft Comments: No abdominal pain noted *Routine Rectal Exam Rectal:: deferred *Routine Genitalia Exam Genitalia:: deferred *Routine Extremities Exam Extremities: Present full ROM Comments: Patient able to walk without assistance, no limitations to upper limbs Routine Back/Spine/Pelvis Exam Back/Spine: Present full ROM Comments: Noted the patient has a long history of back pain neck pain and old records requiring intervention *Routine Skin Exam Skin: Present intact and erythema Comments: Frontal part of face lower jaw frontal lip slightly reddened puffy from the infection *Routine Neurological Exam Neurological: Present alert, oriented X3, CN II-XII intact and normal speech Routine Psychiatric Exam Psychiatric: Present normal affect and cooperative H&P: Result Impressions Dental abscess, facial pain with facial droop that is now resolved History of penicillin allergy, this was tested and patient had no reaction to Augmentin Imaging and Cardiology CT scan - head: Status: image reviewed by me Additional comments: Image reviewed by me showed old stroke also correlates with history of [address] of the face showed an abscess in the lower portion of the jaw under the lip Assessment and Plan *Assessment and plan (1) Facial droop: Status: Acute Category: Medical Code(s): R29.810 - Facial weakness (2) Cellulitis of face: Status: Acute Category: Medical Code(s): L03.211 - Cellulitis of face (3) Abscess, dental: Status: Acute Category: Medical Code(s): K04.7 - Periapical abscess without sinus (4) History of CVA (cerebrovascular accident): Status: Acute Category: Medical Code(s): Z86.73 - Personal history of transient ischemic attack (TIA), and cerebral infarction without residual deficits Plan 1. Patient with dental abscess that had what appeared to be a facial droop that has now resolved., Patient was on clindamycin for the facial abscess., This was not working. Patient had an old history of a penicillin allergy as a child. This was tested by the ER physician and found to be false as he tolerates Unasyn without any signs of allergic reaction., Also had an I&D of the abscess. Patient will be kept on the Augmentin IV overnight when ready for discharge can be converted to p.o. Augmentin. 2. Problem with history of stroke apparently occurred in 2005 because of this patient was noted to have a slight facial droop on the right., Unsure if TIA versus new stroke versus just reoccurrence related to having an infection in the face, but presently is resolved plan to recheck MRI in the morning if considered prudent. Noting that the patient has terrible claustrophobia of MRIs would need to have some form of sedation to have that done. Will give this information to the day hospitalist to see what procedures and testing would be prudent to do for the patient hopefully be able to change to an oral penicillin regime for this dental abscess and to help that be cleared up. Patient would then follow- up with his dentist and primary care for result
[2024-03-30 06:18] LABS: POC Glucose,Bedside 106 (70-110)
[2024-03-30 07:21] LABS: Troponin I < 0.01 ng/ml (0.00-0.034)
--- NOTE | 2024-03-30 07:26 | HMH.PHAINT1 ---
Pharmacy Intervention Comments: home medications verified via outpatient pharmacy
--- NOTE | 2024-03-30 07:45 | PC.NURSE ---
Pt. was admitted overnight from the ED. Pt. is alert and orientated x 4. Pt. had week long hx of left facial swelling and pain, was being treated for sinusitis. Pt. presented to the ED with increased pain and swelling. CT showed gum /tooth abcess. It was opened in the ED. Pt. received Unysyn in the ED and was monitored for one hour post infusion for allergic reaction. Pt. did well. Vss . Personal items and call gregg in reach.
[2024-03-30 07:47] LABS: Basophils # 0.1 K/mm3 (0-0.2); Basophils % 0.6 % (0.1-2.0); Eosinophils # 0.2 K/mm3 (0.0-0.4); Hematocrit 55.1 % (42.0-52.0); Hemoglobin 17.9 g/dL (14.1-18.0); Lymphocytes # 1.4 K/mm3 (0.7-4.5); Lymphocytes % 14.2 % (10-50); Mean Corpuscular HGB Conc 32.5 g/dL (31.8-35.4); Mean Corpuscular Hemoglobin 32.8 pg (27.0-31.2); Mean Corpuscular Volume 100.8 fl (80-94); Mean Platelet Volume 8.1 fl (7.4-10.4); Monocytes # 0.8 K/mm3 (0.1-1.0); Monocytes % 7.9 % (1.7-9.3); Neutrophils # 7.5 K/mm3 (1.8-7.8); Neutrophils % 75.4 % (37.0-80.0); Platelet Count 248 K/mm3 (142-424); Red Blood Count 5.47 M/mm3 (4.60-6.20); Red Cell Distribution Width 13.2 % (11.5-17.5)
--- NOTE | 2024-03-30 08:29 | EXP.ACUTE.PN ---
Subjective *Date: 03/30/24 *Time: 09:13 Interval history: The patient is feeling much better this morning after I&D of the abscess and IV antibiotics. He has significantly less swelling and pain Medical Exam Vital signs and Labs for Last 24 Hours: Vital Signs Temp Pulse Pulse Resp BP BP Pulse Ox 03/30/24 07:39 98.2 F 68 18 137/91 H 95 03/30/24 07:00 03/30/24 05:00 03/30/24 03:30 03/30/24 03:30 03/30/24 03:00 98.2 F 78 16 133/91 H 96 03/30/24 02:35 98.1 F 75 16 137/93 H 03/30/24 02:30 75 137/93 H 96 03/30/24 02:00 70 138/88 93 L 03/30/24 01:45 75 123/77 96 03/30/24 01:00 67 143/101 H 95 03/30/24 00:31 69 153/101 H 94 L 03/30/24 00:08 60 145/91 H 99 03/29/24 23:00 60 131/91 H 94 L 03/29/24 22:50 70 94 L 03/29/24 22:20 98.1 F 67 20 153/92 H 97 O2 Del Method 03/30/24 07:39 03/30/24 07:00 Room Air 03/30/24 05:00 Room Air 03/30/24 03:30 Room Air 03/30/24 03:30 Room Air 03/30/24 03:00 Room Air 03/30/24 02:35 Room Air 03/30/24 02:30 03/30/24 02:00 03/30/24 01:45 03/30/24 01:00 03/30/24 00:31 03/30/24 00:08 03/29/24 23:00 03/29/24 22:50 03/29/24 22:20 Room Air Intake and Output 03/29/24 03/30/24 03/30/24 19:59 03:59 11:59 Other: Weight 201 lb 4.8 oz Patient Weight 03/30/24 11:59 Weight 201 lb 4.8 oz Laboratory Results - last 24 hr 03/29/24 23:35: WBC 13.4 H, RBC 5.92, Hgb 19.2 H, Hct 58.9 H, MCV 99.5 H, MCH 32.1 H, MCHC 32.2, RDW 13.3, Plt Count 305, MPV 7.8, Neut % (Auto) 77.5, Lymph % (Auto) 13.2, [place] % (Auto) 6.5, Eos % (Auto) 2.1, Baso % (Auto) 0.8, Neut # (Auto) 10.4 H, Lymph # (Auto) 1.8, [place] # (Auto) 0.9, Eos # (Auto) 0.3, Baso # (Auto) 0.1, PT 10.8, INR 0.96, APTT 26.4, Sodium 140, Potassium 4.9, Chloride 106, Carbon Dioxide 27, Anion Gap 11.9, BUN 34 H, Creatinine 1.30 H, Estimated Creat Clear 68, Estimated GFR 54 L, Est GFR ( Amer) 65, Glucose 91, Calcium 9.7, Total Bilirubin 0.7, AST 30, ALT 21, Alkaline Phosphatase 83, Troponin I < 0.01, Total Protein 7.1, Albumin 4.3, Globulin 2.8, Albumin/Globulin Ratio 1.5 03/29/24 23:38: Lactate 1.5 03/29/24 23:55: HIV 1&2 Antibody Rapid Nonreactive 03/30/24 02:06: Troponin I < 0.01 03/30/24 06:10: WBC 10.0 D, RBC 5.47, Hgb 17.9, Hct 55.1 H, MCV 100.8 H, MCH 32.8 H, MCHC 32.5, RDW 13.2, Plt Count 248, MPV 8.1, Neut % (Auto) 75.4, Lymph % (Auto) 14.2, [place] % (Auto) 7.9, Eos % (Auto) 2.0, Baso % (Auto) 0.6, Neut # (Auto) 7.5, Lymph # (Auto) 1.4, [place] # (Auto) 0.8, Eos # (Auto) 0.2, Baso # (Auto) 0.1, POC Glucose 106, Troponin I < 0.01 I & O for Labs for Last 24 Hours: Intake & Output 03/27/24 03/28/24 03/29/24/05/24 11:59 11:59 11:59 11:59 Weight 201 lb 4.8 oz Constitutional: Present no acute distress ENT: Present mucous membranes moist Comment:: Abscess of the buccal mucosa is no longer draining and is much less swollen and tender, dentition is poor and there are numerous dental caries and cracking of some of the teeth Respiratory: Present CTA bilaterally Cardiac: Present Reg Rate and Rhythm GI: Present soft and normal bowel sounds; Absent distention or tenderness Extremities: Absent edema, clubbing or cyanosis Skin: Present intact Neuro: Present alert and awake Assessment and Plan *Assessment and plan (1) Cellulitis of face: Status: Acute Category: Medical Code(s): L03.211 - Cellulitis of face (2) Abscess, dental: Status: Acute Category: Medical Code(s): K04.7 - Periapical abscess without sinus (3) History of CVA (cerebrovascular accident): Status: Acute Category: Medical Code(s): Z86.73 - Personal history of transient ischemic attack (TIA), and cerebral infarction without residual deficits (4) Coronary artery disease: Status: Chronic Category: Medical Code(s): I25.10 - Atherosclerotic heart disease of [place] coronary artery without angina pectoris (5) Hyperlipidemia: Status: Chronic Qualifiers: Hyperlipidemia type: other hyperlipidemia Qualified Code(s): E78.4 - Other hyperlipidemia Category: Medical Code(s): E78.5 - Hyperlipidemia, unspecified (6) Hypertensive heart disease without heart failure: Status: Chronic Category: Medical Code(s): I11.9 - Hypertensive heart disease without heart failure (7) Obesity: Status: Chronic Qualifiers: Body mass index: BMI 30.0-30.9 Obesity classification: adult class 1 (BMI 30 - 34.9) Obesity type: due to excess calories Serious obesity comorbidity presence: without serious comorbidity Qualified Code(s): E66.09 - Other obesity due to excess calories; Z68.30 - Body mass index (BMI) 30.0-30.9, adult Category: Medical Code(s): E66.9 - Obesity, unspecified Plan Patient is doing well on antibiotics. Will discuss further care with Dr. Swanson. Dr. Swanson entry - Saw patient, agree with above note. He has improved, plan for discharge home later today.
[2024-03-31 05:11] LABS: HCV Ab Non Reactive (Non Reactive)
--- NOTE | 2024-03-31 10:27 | SW/DCPLANNER ---
Spoke with patient on the phone. Patient stated that he is doing great. Patient stated that he is aware of his upcoming appointments. Patient stated that he has no concerns or questions at this time. Erica Sotomayor
--- NOTE | 2024-04-02 23:16 | P.DS_ITS ---
General Admission date:: 03/30/24 Discharge date: 03/30/24 HPI HPI HPI: This patient has facial swelling and a dental abscess on clindamycin which is not improving the problem., Patient has a history of very old allergy to penicillin. The ER physician feeling that Augmentin was needed/Zosyn, gave a test dose in the ER and evaluated the patient for an hour and a half. Seeing no signs of allergic reaction., Patient also had an I&D of the abscess small amount of pus was removed., Patient is interesting in that they have had stroke in the past. This time he did have some facial droop which has resolved., Question whether this was new TIA/stroke versus just involvement from having an infection to the face related to his old strokes is unknown at this time. Patient is stable but I do agree that having this evaluated in the a.m. an MRI to make sure that there is no new area of stroke or signs of infection from the facial abscess is prudent.. This will also give time to continue with IV antibiotics before converting to an oral Augmentin to treat the underlying infection for this dental problem. 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 Patient states that he has had a sinus infection for the past couple of weeks. Getting worse despite being on clindamycin. Now having lower lip swelling and tenderness underneath his jaw. No fevers or chills, vomiting, difficulty or pain with swallowing. Chest pain getting worse. History obtained with patient and family. On arrival, patient in no acute distress. He does have a new right-sided facial droop, which family states was not present previously. Patient denies any other weakness anywhere else. Lower lip soft tissue swelling with tenderness in the submental region. No induration. No tongue elevation. No evidence of tonsillitis, exudate, pharyngeal erythema, uvular deviation, palatal swelling, trismus, external neck swelling, submental induration, dental abscess, angioedema, or other abnormality. He is tender in his submental region, but no outward signs of abnormality. Range of motion of neck intact and full. No evidence of lymphadenopathy. Cardiopulmonary exam normal. Differential includes soft tissue infection, dental abscess, Armando's angina, CVA, metabolic abnormality, among others. Patient placed on continuous cardiac monitoring and oximetry with initial blood pressure 153/92, pulse 67, O2 sat 97 on room air. Prior to workup, care handed off to oncoming physician. [employer] Manager disclaimer Much of this encounter note is an electronic deputy chief counsel spoken language to printed text. Electronic deputy chief counsel of the spoken language may permit errors. Although I have reviewed the note, some errors may still exist. Garrett: I assumed care of this patient at 2300 hrs. with labs and imaging pending. I agree with the assessment and plan from Dr. Chang. On my exam there was maybe very mild right sided facial droop, nothing obvious. CT imaging of the head without contrast was personally interpreted does not demonstrate acute in tracranial abnormality, there do appear to be chronic changes. See radiology read for final interpretation. CT angiography negative for large vessel occlusion. EKG personally turbid to demonstrate sinus rhythm, rate 67, normal axis, normal NC and QTc, no STEMI. Labs notable for leukocytosis, elevated hemoglobin, normal platelets, mild kidney dysfunction which appears to be at baseline based my review of previous labs, PT/INR, APTT normal. Reading radiologist called me and discussed the imaging with me, she stated that the patient has chronic changes, nothing acute, we also discussed the face CT which she stated patient appears to have an odontogenic abscess but there is no extension into the sublingual or submandibular space, no findings of deep space infection. I discussed results with patient and family. On further reassessment patient has no facial droop. We discussed the possibility of inflammation from infection causing his brief episode of facial droop, TIA, or old infarcts being related. Patient does not require transfer for neurology services at this time. He will be appropriate for admission to the hospital for MRI. Patient requires admission to the hospital anyway for failure of outpatient oral antibiotics for his dental infection causing facial cellulitis. I discussed antibiotic options with the patient, he stated he had a reported childhood allergy of rash with penicillin. He and his family asked if he could try taking a penicillin antibiotic while hospitalized since he would be safe if he did have a reaction. We discussed risks and benefits of this, since he has been frequently on clindamycin in the past, I believe this is reasonable to try a different class of antibiotics. Patient is receiving Unasyn. He will be watched in the ER for at least 1 hour after administration to monitor for allergic reaction. I performed incision and drainage of the dental abscess. See procedure note. On reassessment over 30 minutes after the Unasyn infusion was started, patient remains asymptomatic and is tolerating it well. 1 hour and 15 minutes after receiving the Unasyn infusion, patient continued to be asymptomatic, resting comfortably. At this time he is appropriate for admission. I discussed this patient with the hospitalist including patient's needs for continued IV antibiotics as well as brain MRI for brief episode of facial droop. Family does state they are not sure he actually had facial droop earlier and is now stating he commonly has appearance of facial droop secondary to old stroke. Regardless, patient was graciously excepted for admission and admitted in stable condition. Hospital Course Hospital Course Hospital Course: The patient had a dental abscess and facial pain with facial droop that had resolved after he was given antibiotics. He had a history of penicillin allergy and this was tested and the patient had no reaction to Augmentin. CT of the face showed an abscess in the lower portion of the jaw under the lip. He had an I&D of the abscess in the ER and was kept on IV Augmentin overnight. By 03/30/2024 he was much better and had significantly less swelling and pain. He was stable to be discharged home on oral antibiotics. Exam Data for Last 24 hours Vital signs and Labs for Last 24 Hours: Temp Pulse Resp BP Pulse Ox O2 Del Method 98.2 F 68 18 137/91 H 95 Room Air 03/30/24 07:39 03/30/24 07:39 03/30/24 07:39 03/30/24 07:39 03/30/24 07:39 03/30/24 13:00 Narrative: Radiology Reports for the Last 24 Hours: The patient CT scan of his head showed 2 areas of old CVA., Also CT of the face showing an abscess into the anterior portion of the lower jaw Narrative: ER doctor did an I&D of the abscess., Also noting that the patient had a history of penicillin allergy from way back in earlier age. Unasyn has been given without any signs of allergic reaction as clindamycin was not working to clear up this infection Constitutional Constitutional: mild distress and cooperative Comments: Some facial pain mild headache *Routine HEENT Exam Head: Present normocephalic and atraumatic Eye: Present EOMI, PERRL and normal accommodation ENT: Present mucous membranes moist Comments: Lower lip is swollen with lower jaw slightly swollen to noting abscess with facial pain related to the infection *Routine Neck Exam Neck: Present supple and full ROM Comments: No meningeal signs found Routine Chest/Breast/Axilla Exam Comments: No chest wall tenderness or neck pain was noted *Routine Respiratory Exam Respiratory: Present distant breath sounds, normal respiratory effort, able to speak in complete sentences and symmetric chest movement *Routine Cardiovascular Exam Cardiovascular: Present RRR, Normal S1 and Normal S2 *Routine Abdominal Exam Abdominal: Present soft Comments: No abdominal pain noted *Routine Rectal Exam Rectal:: deferred *Routine Genitalia Exam Genitalia:: deferred *Routine Extremities Exam Extremities: Present full ROM Comments: Patient able to walk without assistance, no limitations to upper limbs Routine Back/Spine/Pelvis Exam Back/Spine: Present full ROM Comments: Noted the patient has a long history of back pain neck pain and old records requiring intervention *Routine Skin Exam Skin: Present intact and erythema Comments: Frontal part of face lower jaw frontal lip slightly reddened puffy from the infection *Routine Neurological Exam Neurological: Present alert, oriented X3, CN II-XII intact and normal speech Routine Psychiatric Exam Psychiatric: Present normal affect and cooperative Results Data Completed and Pending Labs on day of discharge: Preliminary micro results at discharge 03/30/24 00:19 Blood Culture - Preliminary Blood NO GROWTH AFTER 48 HOURS 03/29/24 23:38 Blood Culture - Preliminary Blood NO GROWTH AFTER 48 HOURS DS: Diagnosis Discharge Diagnosis (1) Cellulitis of face: Status: Acute Code(s): L03.211 - Cellulitis of face (2) Abscess, dental: Status: Acute Code(s): K04.7 - Periapical abscess without sinus (3) History of CVA (cerebrovascular accident): Status: Acute Code(s): Z86.73 - Personal history of transient ischemic attack (TIA), and cerebral infarction without residual deficits (4) Coronary artery disease: Status: Chronic Code(s): I25.10 - Atherosclerotic heart disease of [place] coronary artery without angina pectoris (5) Hyperlipidemia: Status: Chronic Code(s): E78.5 - Hyperlipidemia, unspecified Qualifiers: Hyperlipidemia type: other hyperlipidemia Qualified Code(s): E78.4 - Other hyperlipidemia (6) Hypertensive heart disease without heart failure: Status: Chronic Code(s): I11.9 - Hypertensive heart disease without heart failure (7) Obesity: Status: Chronic Code(s): E66.9 - Obesity, unspecified Qualifiers: Obesity type: due to excess calories Obesity classification: adult class 1 (BMI 30 - 34.9) Serious obesity comorbidity presence: without serious comorbidity Body mass index: BMI 30.0-30.9 Qualified Code(s): E66.09 - Other obesity due to excess calories; Z68.30 - Body mass index (BMI) 30.0-30.9, adult Meds Home Medications and Allergies Home Medications ?Medication ?Instructions ?Recorded ?Confirmed ?Type cholecalciferol (vitamin D3) 25 1,000 unit PO DAILY 07/05/17 03/30/24 History mcg (1,000 unit) capsule metoprolol succinate 100 mg 100 mg PO DAILY 07/05/17 03/30/24 History tablet,extended release 24 hr (Toprol XL) valsartan 80 mg tablet (Diovan) 80 mg PO DAILY 07/05/17 03/30/24 History evolocumab 140 mg/mL subcutaneous 140 mg SQ Q2W 07/06/17 03/30/24 History pen injector (Repatha SureClick) clopidogrel 75 mg tablet 75 mg PO DAILY 10/06/22 03/30/24 History gabapentin 300 mg capsule 300 mg PO BID 10/06/22 03/30/24 History empagliflozin 10 mg tablet 10 mg PO DAILY 02/14/24 03/30/24 History (Jardiance) aspirin 81 mg tablet,delayed 81 mg PO DAILY 03/27/24 03/30/24 History release (Adult Low Dose Aspirin) amoxicillin 875 mg-potassium 1 tab PO Q12H #14 tabs 03/30/24 Rx clavulanate 125 mg tablet tramadol 50 mg tablet 50 mg PO DAILYP PRN Pain (Scale 03/30/24 03/30/24 History Score 1-6) New Prescriptions to Start Prescriptions: amoxicillin-pot clavulanate [place],Luis Allergies Allergy/AdvReac Type Severity Reaction Status Date / Time azithromycin (AZITHROMYCIN) Allergy Unknown Verified 03/27/24 08:54 Penicillins (PENICILLINS) Allergy Unknown Verified 03/27/24 08:54 cefdinir Allergy Verified 03/27/24 08:54 morphine (MORPHINE) AdvReac Unknown Nausea Verified 03/27/24 08:54 Discharge Plan Disposition Patient Disposition: Home, Self-Care Condition: Fair Follow up Plan Follow up with: Jose Duopnt [Referring] - 03/31/24 Prescriptions/Medication Reconciliation: New amoxicillin-pot clavulanate 875-125 mg tablet 1 tab PO Q12H Qty: 14 0RF Continued valsartan [Diovan] 80 mg tablet 80 mg PO DAILY metoprolol succinate [Toprol XL] 100 mg tablet extended release 24 hr 100 mg PO DAILY cholecalciferol (vitamin D3) 1,000 unit capsule 1,000 unit PO DAILY evolocumab [Repatha SureClick] 140 mg/mL pen injector 140 mg SUB-Q Q2W clopidogrel 75 mg tablet 75 mg PO DAILY gabapentin 300 mg capsule 300 mg PO BID aspirin [Adult Low Dose Aspirin] 81 mg tablet,delayed release (DR/EC) 81 mg PO DAILY Jardiance 10 mg Tablet 10 mg PO DAILY tramadol 50 mg tablet 50 mg PO DAILYP PRN (Reason: Pain (Scale Score 1-6)) Problem Reconciliation Problems Reviewed?: Yes Patient Discharge Instructions ACTIVITY: Continue current activity DIET: continue same diet Patient Instructions: DI for Cellulitis -- Adult Print Language: Italian Providers Primary Care Provider: Luis Swanson Admit Provider: Calvin Rubin Attending Provider: Luis Swanson
== END 2024-03-30 13:59 | disposition home or self-care (01) ==
LOC: ER 03-30 01:56 → 2ND 03-30 03:15
PROVIDERS: Admitting Provider Student in an Organized Health Care Education/Training Program; Emergency Provider Emergency Medicine; PCP Family Medicine; Visit Provider Family Medicine
DX: L03.211 Cellulitis of face (principal); K04.7 Periapical abscess without sinus; I25.10 Atherosclerotic heart disease of native coronary artery without angina pectoris; R29.810 Facial weakness; I11.9 Hypertensive heart disease without heart failure; E66.09 Other obesity due to excess calories; Z86.73 Personal history of transient ischemic attack (TIA), and cerebral infarction without residual deficits; Z68.30 Body mass index [BMI] 30.0-30.9, adult; Z79.899 Other long term (current) drug therapy; E78.5 Hyperlipidemia, unspecified
CPT/HCPCS: 41800; 36415; 70450; 70487; 70496; 70498; 71045; 80053; 82962; 83605; 84484; 85025; 85610; 85730; 86803; 87040; 87389; 93005; 99285; G0378; J0295; Q9967

== ENCOUNTER 2024-06-22 10:29 | Outpatient (POV) | payer MEDICARE, SELFPAY ==
[2024-06-22 10:46] VITALS: BP 131/76; PULSE 55; RESP 16; O2SAT 99; BMI 30.1
--- NOTE | 2024-06-22 11:15 | A.OFFVIS_ITS ---
[facility] Disclaimer: The information contained in this section may have been updated after the patient was seen, as this information can be updated by other users. Medical History (Updated 06/22/24 @ 11:18 by Keysha Gibbons APRN) Degenerative disc disease, lumbar Lumbar radiculopathy H/O penicillin-type antibiotic allergy Bilateral leg pain History of CVA (cerebrovascular accident) Influenza-like illness Lumbar back sprain Sinusitis Bronchitis Infected sebaceous cyst of skin Hydronephrosis Cervical sprain Spinal stenosis, lumbar region with neurogenic claudication Lumbar post-laminectomy syndrome Stroke Abscess, dental LV dysfunction Encounter for pre-operative cardiovascular clearance Obesity Hyperlipidemia Hypertensive heart disease without heart failure Coronary arteriosclerosis Family History Other No significant family history Social History Smoking Status: Former smoker alcohol intake: never substance use type: denies use current occupational status: other Travel in the last 8 weeks: None PM Subjective & Objective Subjective Subjective:: Patient is a pleasant 73-year-old male who presents today for continued worsening pain. He rates his pain an 8 out of 10. Patient denies any new falls or injuries. He states that the pain is just completely increased in severity and he just cannot do anything without the constant pain. It does go from his low back and radiates into his bilateral lower extremities with numbness and tingling. It does interfere with his ability perform activities of daily living such as cooking and cleaning. Patient has had multiple lumbar epidurals in the past that have provided significant relief however when we tried to get approval with his last epidural injection we did get insurance denial. Patient states that he has been miserable from then on and would like to proceed forward with the injections. Patient was prescribed tramadol 50 mg at bedtime and he does state that this is worked somewhat well for him. He is stating that he is out of this medication. He has continued conservative treatment including continued at home stretching exercise for longer than 12 weeks with no additional improvement. Patient Aly has been reviewed. Review of Systems: General: No recent weight changes, no fever, no sleep disturbances Respiratory: No cough, no shortness of air, no recurring pulmonary infections Cardiovascular/peripheral vascular: No chest pain, no palpitations, no edema, no shortness of breath Gastrointestinal: No new onset incontinence, normal bowel movements reported Genitourinary: No new onset incontinence Musculoskeletal: Low back pain, bilateral leg pain Psychiatric: [Normal mood/affect] Neurological: [Denies weakness in extremities], [denies balance issues] Pain at rest (0-10 scale): 8 Objective Objective:: Physical Exam: General: Alert and oriented x3, no acute distress, pleasant and cooperative Lungs: Respirations even and unlabored, symmetrical chest expansion Eyes: PERRL Musculoskeletal: Flexion and extension of lumbar [spine] somewhat guarded secondary to pain, [antalgic gait noted] positive leg raise Neurological: Speech clear, no gross sensory deficit Has patient had previous pain injection?: No Conservative treatment options previously tried: Home exercise plan Length of treatment: Longer than 12 weeks Meds Home Medications and Allergies Home Medications ?Medication ?Instructions ?Recorded ?Confirmed ?Type cholecalciferol (vitamin D3) 25 1,000 unit PO DAILY 07/05/17 06/22/24 History mcg (1,000 unit) capsule metoprolol succinate 100 mg 100 mg PO DAILY 07/05/17 06/22/24 History tablet,extended release 24 hr (Toprol XL) valsartan 80 mg tablet (Diovan) 80 mg PO DAILY 07/05/17 06/22/24 History evolocumab 140 mg/mL subcutaneous 140 mg SQ Q2W 07/06/17 06/22/24 History pen injector (Anthony Smartick) clopidogrel 75 mg tablet 75 mg PO DAILY 10/06/22 06/22/24 History gabapentin 300 mg capsule 300 mg PO BID 10/06/22 06/22/24 History empagliflozin 10 mg tablet 10 mg PO DAILY 02/14/24 06/22/24 History (Jardiance) aspirin 81 mg tablet,delayed 81 mg PO DAILY 03/27/24 06/22/24 History release (Adult Low Dose Aspirin) amoxicillin 875 mg-potassium 1 tab PO Q12H #14 tabs 03/30/24 06/22/24 Rx clavulanate 125 mg tablet tramadol 50 mg tablet 50 mg PO DAILYP PRN Pain (Scale 03/30/24 06/22/24 History Score 1-6) New Prescriptions to Start Prescriptions: Allergies Allergy/AdvReac Type Severity Reaction Status Date / Time azithromycin (AZITHROMYCIN) Allergy Unknown Verified 03/27/24 08:54 Penicillins (PENICILLINS) Allergy Unknown Verified 03/27/24 08:54 cefdinir Allergy Verified 03/27/24 08:54 morphine (MORPHINE) AdvReac Unknown Nausea Verified 03/27/24 08:54 Assessment and Plan *Assessment and plan (1) Degenerative disc disease, lumbar: Status: Acute Category: Medical Code(s): M51.369 - Other intervertebral disc degeneration, lumbar region without mention of lumbar back pain or lower extremity pain (2) Lumbar radiculopathy: Status: Acute Category: Medical Code(s): M54.16 - Radiculopathy, lumbar region (3) Chronic back pain: Status: Acute Category: Medical Code(s): M54.9 - Dorsalgia, unspecified; G89.29 - Other chronic pain Plan Patient is experiencing worsening pain in his low back with numbness and tingling into his lower extremities. Patient did have limited range of motion of his lumbar spine with a positive leg raise. I did discuss with patient that I do believe they would benefit from a lumbar epidural steroid injection. Risk and benefits were discussed with patient and the patient would like to proceed forward with this plan of care. Patient is on Plavix that is written by Dr. Swanson's office. We will reach out to this provider and confirm he can stop this medication prior to this injection. Patient has tried and failed conservative therapy including continued at home stretching exercise for longer than 12 weeks between injections. Patient did previously have a lumbar epidural back in October that provided 50% relief and lasted longer than 3 months. Patient does get significant improved function and overall decreased pain with these injections. Patient has tried all other measures and is not a candidate for surgical intervention. We will schedule the patient for an LESI L3-L4 under fluoroscopy. I will refill his tramadol and provide a 3-month supply of this medication. Patient has been instructed to contact the clinic with any concerns before the next appointment. Dr. Ramirez has reviewed this note and agrees with this plan of care. This note was dictated using voice recognition software and make contain errors or omissions. All injections are used with Lidocaine, Bupivacaine and Depo Medrol. Occasionally urine drug screen is needed to verify patient's compliance with our office pain contract. This is ordered based off specific treatments related to chronic pain with the potential to abuse certain medications.
== END 2024-06-22 23:59 | disposition home or self-care (01) ==
PROVIDERS: PCP Family Medicine; Visit Provider Nurse Practitioner Family
DX: M51.16 Intervertebral disc disorders with radiculopathy, lumbar region (principal); M54.9 Dorsalgia, unspecified; G89.29 Other chronic pain; Z73.89 Other problems related to life management difficulty
CPT/HCPCS: 99212; G0463

== ENCOUNTER 2024-07-18 09:47 | Day surgery (SDC) | payer MEDICARE, SELFPAY ==
[2024-07-18 09:54] VITALS: BP 113/56; PULSE 52; RESP 16; TEMP 36.9; O2SAT 93; BMI 30.1
[2024-07-18 10:06] VITALS: BP 142/71; PULSE 52; RESP 18; O2SAT 94
[2024-07-18] MEDS: methylPREDNISolone ACETATE 80MG/ML VIAL 80 MG (10:06)
[2024-07-18 10:07] VITALS: BP 142/71; PULSE 50; RESP 18; O2SAT 94
[2024-07-18 10:12] VITALS: BP 120/67; PULSE 51; RESP 16; O2SAT 97
--- NOTE | 2024-07-18 10:18 | EXP.PAIN.PRO ---
Procedure Date: 07/18/24 Time: 10:00 Anesthesiologist:: Conor Cordon CRNA Complications:: None Pre-procedure Diagnosis:: Degenerative disc lumbar spine multilevels. Lumbar radiculopathy. Lumbar postlaminectomy syndrome. Post-procedure Diagnosis:: Same. Indications for Procedure:: Patient is a very pleasant 73-year-old male who comes our clinic today for a lumbar epidural steroid injection at L3-4 level. Patient describes low lumbar back pain as constant, dull, aching. Patient also reports bilateral hip and leg radicular symptoms. He rates his pain 7/10. Procedure Details:: Procedure: Lumbar epidural steroid injection under fluoroscopy Informed consent was obtained and the risks and benefits of the procedure were explained to the patient. The patient was taken to the procedure room and noninvasive monitors placed, including noninvasive blood pressure cuff and pulse oximeter. The back was viewed using C-arm Fluoroscopy and prepped using Chloraprep as a cleansing solution and the L3-4 interspace was palpated. Skin and subcutaneous tissues were anesthetized using lidocaine 1.5% and a 25-gauge needle. After this, an 18-gauge Touhy epidural needle was placed into the L3-4 interspace and advanced using fluoroscopic guidance and loss of resistance to air until the epidural space was encountered. After confirmation of needle placement in the epidural space, with dye, a solution containing normal saline, 3 mL and Depo-Medrol 80 mg were incrementally injected into the lumbar epidural space. The patient tolerated the procedure well with no complications. The patient was observed in the Pain Clinic and then discharged home neurologically intact. Plan and Disposition:: Patient was discharged without incident.
== END 2024-07-18 10:12 | disposition home or self-care (01) ==
PROVIDERS: PCP Family Medicine; Visit Provider Nurse Anesthetist, Certified Registered
DX: M51.16 Intervertebral disc disorders with radiculopathy, lumbar region (principal); M96.1 Postlaminectomy syndrome, not elsewhere classified
CPT/HCPCS: 62323; J1010

== ENCOUNTER 2024-08-02 11:16 | Outpatient (POV) | payer MEDICARE, SELFPAY ==
--- NOTE | 2024-08-02 11:28 | EXP.PAIN.SOA ---
[facility] Disclaimer: The information contained in this section may have been updated after the patient was seen, as this information can be updated by other users. Medical History (Updated 06/22/24 @ 11:18 by Keysha Gibbons APRN) Degenerative disc disease, lumbar Lumbar radiculopathy H/O penicillin-type antibiotic allergy Bilateral leg pain History of CVA (cerebrovascular accident) Influenza-like illness Lumbar back sprain Sinusitis Bronchitis Infected sebaceous cyst of skin Hydronephrosis Cervical sprain Spinal stenosis, lumbar region with neurogenic claudication Lumbar post-laminectomy syndrome Stroke Abscess, dental LV dysfunction Encounter for pre-operative cardiovascular clearance Obesity Hyperlipidemia Hypertensive heart disease without heart failure Coronary arteriosclerosis Family History Other No significant family history Social History Smoking Status: Former smoker alcohol intake: never substance use type: denies use current occupational status: other Travel in the last 8 weeks: None Have you lived/traveled outside US in past 30 days?: No Contact w/someone who lives/traveled outside US past 30 days?: No Exposure to someone with infectious disease in past 14 days?: No Do you have a fever (greater than 100.4 F or 38 C)?: No Have you tested positive for COVID-19: No Exposed to someone with COVID-19 in past 14 days?: No Do you have a sore throat?: No Do you have a cough?: No Do you have any weakness?: No Do you have any diarrhea?: No Are you experiencing any unusual bleeding?: No Do you have any muscle aches/pain?: No Do you have any abdominal pain?: No Are you experiencing loss of taste or smell?: No PM Subjective & Objective Subjective Subjective:: Patient is a pleasant 73-year-old male who presents today for follow-up of lumbar epidural steroid injection L3-L4 on 07/18/2024. Today he rates his pain a 0 out of 10. He denies any new trauma or injury. He is stating that he had approximately 100 percent improvement following this injection. He states he has been able to do all kinds of activities with overall decreased pain. He states he has not even had to refill his pain medication due to the improved overall function from this injection. Patient is currently managed with tramadol 50 mg at bedtime and did just recently get a 3-month supply at the end of May and does not need refills. Patient's Aly has been reviewed and is appropriate. \ Review of Systems: General: No recent weight changes, no fever, no sleep disturbances Respiratory: No cough, no shortness of air, no recurring pulmonary infections Cardiovascular/peripheral vascular: No chest pain, no palpitations, no edema, no shortness of breath Gastrointestinal: No new onset incontinence, normal bowel movements reported Genitourinary: No new onset incontinence Musculoskeletal: Low back pain Psychiatric: [Normal mood/affect] Neurological: [Denies weakness in extremities], [denies balance issues] Pain at rest (0-10 scale): 0 Objective Objective:: Physical Exam: General: Alert and oriented x3, no acute distress, pleasant and cooperative Lungs: Respirations even and unlabored, symmetrical chest expansion Eyes: PERRL Musculoskeletal: Flexion and extension of lumbar [spine] within normal limits Neurological: Speech clear, no gross sensory deficit Has patient had previous pain injection?: Yes Percent improvement in pain since last injection: 100% Conservative treatment options previously tried: Home exercise plan Length of treatment: Longer than 12 weeks Meds Home Medications and Allergies Home Medications ?Medication ?Instructions ?Recorded ?Confirmed ?Type cholecalciferol (vitamin D3) 25 1,000 unit PO DAILY 07/05/17 07/18/24 History mcg (1,000 unit) capsule metoprolol succinate 100 mg 100 mg PO DAILY 07/05/17 07/18/24 History tablet,extended release 24 hr (Toprol XL) valsartan 80 mg tablet (Diovan) 80 mg PO DAILY 07/05/17 07/18/24 History evolocumab 140 mg/mL subcutaneous 140 mg SQ Q2W 07/06/17 07/18/24 History pen injector (Anthony Sidhu) clopidogrel 75 mg tablet 75 mg PO DAILY 10/06/22 07/18/24 History gabapentin 300 mg capsule 300 mg PO BID 10/06/22 07/18/24 History empagliflozin 10 mg tablet 10 mg PO DAILY 02/14/24 07/18/24 History (Jardiance) aspirin 81 mg tablet,delayed 81 mg PO DAILY 03/27/24 07/18/24 History release (Adult Low Dose Aspirin) amoxicillin 875 mg-potassium 1 tab PO Q12H #14 tabs 03/30/24 07/18/24 Rx clavulanate 125 mg tablet tramadol 50 mg tablet 50 mg PO DAILYP PRN Pain (Scale 06/22/24 07/18/24 Rx Score 1-6) #30 tabs New Prescriptions to Start Prescriptions: Allergies Allergy/AdvReac Type Severity Reaction Status Date / Time azithromycin (AZITHROMYCIN) Allergy Unknown Verified 03/27/24 08:54 Penicillins (PENICILLINS) Allergy Unknown Verified 03/27/24 08:54 cefdinir Allergy Verified 03/27/24 08:54 morphine (MORPHINE) AdvReac Unknown Nausea Verified 03/27/24 08:54 Assessment and Plan *Assessment and plan (1) Degenerative disc disease, lumbar: Status: Acute Category: Medical Code(s): M51.369 - Other intervertebral disc degeneration, lumbar region without mention of lumbar back pain or lower extremity pain (2) Lumbar radiculopathy: Status: Acute Category: Medical Code(s): M54.16 - Radiculopathy, lumbar region (3) Chronic back pain: Status: Acute Category: Medical Code(s): M54.9 - Dorsalgia, unspecified; G89.29 - Other chronic pain Plan Patient has had significant improvement following his lumbar epidural and does not require any additional injection therapy at this time. Patient will return to clinic in 6 weeks. Patient has been instructed to contact the clinic with any concerns before the next appointment. Dr. Ramirez has reviewed this note and agrees with this plan of care. This note was dictated using voice recognition software and make contain errors or omissions. All injections are used with Lidocaine, Bupivacaine and Depo Medrol. Occasionally urine drug screen is needed to verify patient's compliance with our office pain contract. This is ordered based off specific treatments related to chronic pain with the potential to abuse certain medications.
[2024-08-02 11:29] VITALS: BP 120/70; PULSE 64; RESP 16; O2SAT 97; BMI 28.7
--- OUTSIDE RECORDS SUMMARY | 2024-08-03 22:06 | XMS_ITS ---
Author Organization Unknown Medications Date Medication Dosage DosageUnit StartDate StopDate StopReason Active DoseQuantity DoseUnit Dispense DispenseUnit Refills NdcCode DrugCode PharmacyId IsPrescription MappedMedication Srcstatus 07/03 00:00 :00 B-12 1000 MCG Tablet 1 [id number] 201 Taking 06/30 00:00 :00 B-12 1000 MCG Tablet 1 [id number] 201 Taking 06/28 00:00 :00 B-12 1000 MCG Tablet 1 [id number] 201 Taking 06/07 00:00 :00 B-12 1000 MCG Tablet 1 [id number] 201 Taking 03/22 00:00 :00 B-12 1000 MCG Tablet 1 [id number] 201 Taking 02/02 00:00 :00 B-12 1000 MCG Tablet 1 [id number] 201 Taking 01/11 00:00 :00 B-12 1000 MCG Tablet 1 [id number] 201 Taking 01/05 00:00 :00 B-12 1000 MCG Tablet 1 [id number] 201 Taking 11/11 00:00 :00 B-12 1000 MCG Tablet 1 [id number] 201 Taking 09/27 00:00 :00 B-12 1000 MCG Tablet 1 [id number] 201 Taking 09/15 00:00 :00 B-12 1000 MCG Tablet 1 [id number] 201 Taking 08/20 00:00 :00 B-12 1000 MCG Tablet 1 [id number] 201 Taking 07/25 00:00 :00 B-12 1000 MCG Tablet 1 [id number] 201 Taking 07/20 00:00 :00 B-12 1000 MCG Tablet 1 [id number] 201 Taking 08/20 00:00 :00 Cefdinir 300 MG Capsule 07/21/2023 00:00:00 0 14 Capsule 0 [id number] 006 P Discontinu ed 07/25 00:00 :00 Cefdinir 300 MG Capsule 07/21/2023 00:00:00 1 14 Capsule 0 [id number] 006 P Taking 07/20 00:00 :00 Cefdinir 300 MG Capsule 07/21/2023 00:00:00 1 14 Capsule 0 [id number] 006 P Start 09/27 00:00 :00 Cefuroxime Axetil 500 MG Tablet 09/16/2023 00:00:00 0 10 Tablet 0 21477 040 101 P Discontinu ed 09/15 00:00 :00 Cefuroxime Axetil 500 MG Tablet 09/16/2023 00:00:00 1 10 Tablet 0 07133 040 101 P Start 06/07 00:00 :00 Clindamycin HCl 300 MG Capsule 03/22/2024 00:00:00 0 30 Capsule 0 [id number] 461 P Discontinu ed 03/22 00:00 :00 Clindamycin HCl 300 MG Capsule 03/22/2024 00:00:00 1 30 Capsule 0 [id number] 461 P Start 02/02 00:00 :00 Clindamycin HCl 300 MG Capsule 01/06/2024 00:00:00 0 [id number] 9 461 P Discontinu ed 01/11 00:00 :00 Clindamycin HCl 300 MG Capsule 01/06/2024 00:00:00 1 [id number] 9 461 P Continue 01/11 00:00 :00 Clindamycin HCl 300 MG Capsule 01/06/2024 00:00:00 1 30 Capsule 0 [id number] 461 P Taking 01/05 00:00 :00 Clindamycin HCl 300 MG Capsule 01/06/2024 00:00:00 1 30 Capsule 0 [id number] 461 P Start 07/03 00:00 :00 Clopidogrel Bisulfate 75 MG Tablet 1 30 Tablet 2 [id number] 203 Taking 06/30 00:00 :00 Clopidogrel Bisulfate 75 MG Tablet 1 30 Tablet 2 [id number] 203 Taking 06/28 00:00 :00 Clopidogrel Bisulfate 75 MG Tablet 1 30 Tablet 2 [id number] 203 Taking 06/07 00:00 :00 Clopidogrel Bisulfate 75 MG Tablet 1 30 Tablet 2 [id number] 203 Taking 05/29 00:00 :00 Clopidogrel Bisulfate 75 MG Tablet 1 30 Tablet 2 [id number] 203 Start 05/29 00:00 :00 Clopidogrel Bisulfate 75 MG Tablet 0 167 92088 203 Stop 03/22 00:00 :00 Clopidogrel Bisulfate 75 MG Tablet 1 167 03967 203 Taking 02/02 00:00 :00 Clopidogrel Bisulfate 75 MG Tablet 1 167 17743 203 Continue 02/02 00:00 :00 Clopidogrel Bisulfate 75 MG Tablet 1 30 Tablet 4 [id number] 203 Taking 01/11 00:00 :00 Clopidogrel Bisulfate 75 MG Tablet 1 30 Tablet 4 [id number] 203 Taking 01/05 00:00 :00 Clopidogrel Bisulfate 75 MG Tablet 1 30 Tablet 4 [id number] 203 Taking 11/21 00:00 :00 Clopidogrel Bisulfate 75 MG Tablet 1 30 Tablet 4 [id number] 203 Start 11/11 00:00 :00 dexAMETHaso ne 2 MG Tablet 11/12/2023 00:00:00 1 10 Tablet 0 01020 418 325 P Start 09/15 00:00 :00 dexAMETHaso ne 2 MG Tablet 08/21/2023 00:00:00 0 10 Tablet 0 30473 418 325 P Discontinu ed 08/20 00:00 :00 dexAMETHaso ne 2 MG Tablet 08/21/2023 00:00:00 1 10 Tablet 0 31167 418 325 P Start 07/03 00:00 :00 Diovan 80 MG Tablet 1 [id number] 834 P Taking 06/30 00:00 :00 Diovan 80 MG Tablet 1 [id number] 834 P Taking 06/28 00:00 :00 Diovan 80 MG Tablet 1 [id number] 834 P Taking 06/07 00:00 :00 Diovan 80 MG Tablet 1 [id number] 834 P Taking 03/22 00:00 :00 Diovan 80 MG Tablet 1 [id number] 834 P Taking 02/02 00:00 :00 Diovan 80 MG Tablet 1 [id number] 834 P Continue 02/02 00:00 :00 Diovan 80 MG Tablet 1 180 1 [id number] 834 P Taking 01/11 00:00 :00 Diovan 80 MG Tablet 1 180 1 [id number] 834 P Taking 01/05 00:00 :00 Diovan 80 MG Tablet 1 180 1 [id number] 834 P Taking 11/11 00:00 :00 Diovan 80 MG Tablet 1 180 1 [id number] 834 P Taking 09/27 00:00 :00 Diovan 80 MG Tablet 1 180 1 [id number] 834 P Taking 09/15 00:00 :00 Diovan 80 MG Tablet 1 180 1 [id number] 834 P Taking 08/20 00:00 :00 Diovan 80 MG Tablet 1 180 1 [id number] 834 P Taking 07/25 00:00 :00 Diovan 80 MG Tablet 1 180 1 [id number] 834 P Taking 07/20 00:00 :00 Diovan 80 MG Tablet 1 180 1 [id number] 834 P Unknown Status 07/20 00:00 :00 Diovan 80 MG Tablet 1 [id number] 834 Taking 07/03 00:00 :00 Doxycycline Hyclate 100 MG Capsule 07/03/2024 00:00:00 1 10 Capsule 0 [id number] 305 P Start 06/28 00:00 :00 Doxycycline Hyclate 100 MG Capsule 06/07/2024 00:00:00 0 14 Capsule 0 [id number] 305 P Discontinu ed 06/07 00:00 :00 Doxycycline Hyclate 100 MG Capsule 06/07/2024 00:00:00 1 14 Capsule 0 [id number] 305 P Start 11/11 00:00 :00 Doxycycline Hyclate 100 MG Tablet 09/28/2023 00:00:00 0 10 0 [id number] 1 205 P Discontinu ed 09/27 00:00 :00 Doxycycline Hyclate 100 MG Tablet 09/28/2023 00:00:00 1 10 0 [id number] 1 205 P Start 08/20 00:00 :00 Doxycycline Hyclate 100 MG Capsule 07/26/2023 00:00:00 0 14 Capsule 0 [id number] 250 P Discontinu ed 07/25 00:00 :00 Doxycycline Hyclate 100 MG Capsule 07/26/2023 00:00:00 1 14 Capsule 0 [id number] 250 P Start 07/03 00:00 :00 Flonase Allergy Relief 50 MCG/ACT Suspension 10/01/2022 00:00:00 1 1 0 [id number] 7 602 P Taking 06/30 00:00 :00 Flonase Allergy Relief 50 MCG/ACT Suspension 10/01/2022 00:00:00 1 1 0 [id number] 7 602 P Taking 06/28 00:00 :00 Flonase Allergy Relief 50 MCG/ACT Suspension 10/01/2022 00:00:00 1 1 0 [id number] 7 602 P Taking 06/07 00:00 :00 Flonase Allergy Relief 50 MCG/ACT Suspension 10/01/2022 00:00:00 1 1 0 [id number] 7 602 P Taking 03/22 00:00 :00 Flonase Allergy Relief 50 MCG/ACT Suspension 10/01/2022 00:00:00 1 1 0 [id number] 7 602 P Taking 02/02 00:00 :00 Flonase Allergy Relief 50 MCG/ACT Suspension 10/01/2022 00:00:00 1 1 0 [id number] 7 602 P Taking 01/11 00:00 :00 Flonase Allergy Relief 50 MCG/ACT Suspension 10/01/2022 00:00:00 1 1 0 [id number] 7 602 P Taking 01/05 00:00 :00 Flonase Allergy Relief 50 MCG/ACT Suspension 10/01/2022 00:00:00 1 1 0 [id number] 7 602 P Taking 11/11 00:00 :00 Flonase Allergy Relief 50 MCG/ACT Suspension 10/01/2022 00:00:00 1 1 0 [id number] 7 602 P Taking 09/27 00:00 :00 Flonase Allergy Relief 50 MCG/ACT Suspension 10/01/2022 00:00:00 1 1 0 [id number] 7 602 P Taking 09/15 00:00 :00 Flonase Allergy Relief 50 MCG/ACT Suspension 10/01/2022 00:00:00 1 1 0 [id number] 7 602 P Taking 08/20 00:00 :00 Flonase Allergy Relief 50 MCG/ACT Suspension 10/01/2022 00:00:00 1 1 0 [id number] 7 602 P Taking 07/25 00:00 :00 Flonase Allergy Relief 50 MCG/ACT Suspension 10/01/2022 00:00:00 1 1 0 [id number] 7 602 P Taking 07/20 00:00 :00 Flonase Allergy Relief 50 MCG/ACT Suspension 10/01/2022 00:00:00 1 1 0 [id number] 7 602 P Taking 07/03 00:00 :00 Gabapentin 300 MG Capsule 02/09/2024 00:00:00 1 180 1 [id number] 6 661 P Taking 06/30 00:00 :00 Gabapentin 300 MG Capsule 02/09/2024 00:00:00 1 180 1 [id number] 6 661 P Taking 06/28 00:00 :00 Gabapentin 300 MG Capsule 02/09/2024 00:00:00 1 180 1 [id number] 6 661 P Taking 06/07 00:00 :00 Gabapentin 300 MG Capsule 02/09/2024 00:00:00 1 180 1 [id number] 6 661 P Taking 03/22 00:00 :00 Gabapentin 300 MG Capsule 02/09/2024 00:00:00 1 180 1 [id number] 6 661 P Taking 02/07 00:00 :00 Gabapentin 300 MG Capsule 02/09/2024 00:00:00 1 180 1 [id number] 6 661 P Unknown Status 02/02 00:00 :00 Gabapentin 300 MG Capsule 07/21/2023 00:00:00 1 180 1 [id number] 6 661 P Taking 01/11 00:00 :00 Gabapentin 300 MG Capsule 07/21/2023 00:00:00 1 180 1 [id number] 6 661 P Taking 01/05 00:00 :00 Gabapentin 300 MG Capsule 07/21/2023 00:00:00 1 180 1 [id number] 6 661 P Taking 11/11 00:00 :00 Gabapentin 300 MG Capsule 07/21/2023 00:00:00 1 180 1 [id number] 6 661 P Taking 09/27 00:00 :00 Gabapentin 300 MG Capsule 07/21/2023 00:00:00 1 180 1 [id number] 6 661 P Taking 09/15 00:00 :00 Gabapentin 300 MG Capsule 07/21/2023 00:00:00 1 180 1 [id number] 6 661 P Taking 08/20 00:00 :00 Gabapentin 300 MG Capsule 07/21/2023 00:00:00 1 180 1 [id number] 6 661 P Taking 07/25 00:00 :00 Gabapentin 300 MG Capsule 07/21/2023 00:00:00 1 180 1 [id number] 6 661 P Taking 07/20 00:00 :00 Gabapentin 300 MG Capsule 07/21/2023 00:00:00 1 180 1 [id number] 6 661 P Unknown Status 07/20 00:00 :00 Gabapentin 300 MG Capsule 04/07/2023 00:00:00 1 60 Capsule 2 63919040 661 P Taking 07/03 00:00 :00 Jardiance 10 MG Tablet 02/07/2024 00:00:00 1 90 Tablet 1 62416 015 207 P Taking 06/30 00:00 :00 Jardiance 10 MG Tablet 02/07/2024 00:00:00 1 90 Tablet 1 49684 015 207 P Taking 06/28 00:00 :00 Jardiance 10 MG Tablet 02/07/2024 00:00:00 1 90 Tablet 1 34697 015 207 P Taking 06/07 00:00 :00 Jardiance 10 MG Tablet 02/07/2024 00:00:00 1 90 Tablet 1 43855 015 207 P Taking 03/22 00:00 :00 Jardiance 10 MG Tablet 02/07/2024 00:00:00 1 90 Tablet 1 11141 015 207 P Taking 02/06 00:00 :00 Jardiance 10 MG Tablet 02/07/2024 00:00:00 1 90 Tablet 1 57740 015 207 P Start 07/03 00:00 :00 Maximum D3 325 MCG (72418 UT) Capsule 1 62148330 905 Taking 06/30 00:00 :00 Maximum D3 325 MCG (05533 UT) Capsule 1 64344652 905 Taking 06/28 00:00 :00 Maximum D3 325 MCG (09392 UT) Capsule 1 90538896 905 Taking 06/07 00:00 :00 Maximum D3 325 MCG (99330 UT) Capsule 1 41736829 905 Taking 03/22 00:00 :00 Maximum D3 325 MCG (99985 UT) Capsule 1 52744148 905 Taking 02/02 00:00 :00 Maximum D3 325 MCG (62914 UT) Capsule 1 55748771 905 Taking 01/11 00:00 :00 Maximum D3 325 MCG (10291 UT) Capsule 1 50206144 905 Taking 01/05 00:00 :00 Maximum D3 325 MCG (02119 UT) Capsule 1 92478419 905 Taking 11/11 00:00 :00 Maximum D3 325 MCG (50092 UT) Capsule 1 63576328 905 Taking 09/27 00:00 :00 Maximum D3 325 MCG (70654 UT) Capsule 1 23274740 905 Taking 09/15 00:00 :00 Maximum D3 325 MCG (97538 UT) Capsule 1 29224120 905 Taking 08/20 00:00 :00 Maximum D3 325 MCG (37671 UT) Capsule 1 90843404 905 Taking 07/25 00:00 :00 Maximum D3 325 MCG (46556 UT) Capsule 1 28259870 905 Taking 07/20 00:00 :00 Maximum D3 325 MCG (40531 UT) Capsule 1 27307663 905 Taking 06/07 00:00 :00 Medrol 4 MG Tablet Therapy Pack 03/24/2024 00:00:00 0 1 0 [id number] 5 604 P Discontinu ed 03/24 00:00 :00 Medrol 4 MG Tablet Therapy Pack 03/24/2024 00:00:00 1 1 0 5207024 5 604 P Start 07/03 00:00 :00 Metoprolol Succinate ER 100 MG Tablet Extended Release 24 Hour 1 30 Tablet 2 1620170 9 710 Taking 06/30 00:00 :00 Metoprolol Succinate ER 100 MG Tablet Extended Release 24 Hour 1 30 Tablet 2 7091505 9 710 Taking 06/28 00:00 :00 Metoprolol Succinate ER 100 MG Tablet Extended Release 24 Hour 1 30 Tablet 2 6780687 9 710 Taking 06/07 00:00 :00 Metoprolol Succinate ER 100 MG Tablet Extended Release 24 Hour 1 30 Tablet 2 2627296 9 710 Taking 05/15 00:00 :00 Metoprolol Succinate ER 100 MG Tablet Extended Release 24 Hour 1 30 Tablet 2 2634254 9 710 Start 05/15 00:00 :00 Metoprolol Succinate ER 100 MG Tablet Extended Release 24 Hour 0 08091676 710 Stop 03/22 00:00 :00 Metoprolol Succinate ER 100 MG Tablet Extended Release 24 Hour 1 46411713 710 Taking 02/02 00:00 :00 Metoprolol Succinate ER 100 MG Tablet Extended Release 24 Hour 1 03825350 710 Continue 02/02 00:00 :00 Metoprolol Succinate ER 100 MG Tablet Extended Release 24 Hour 1 30 Tablet 5 1284058 9 710 Taking 01/11 00:00 :00 Metoprolol Succinate ER 100 MG Tablet Extended Release 24 Hour 1 30 Tablet 5 1631808 9 710 Taking 01/05 00:00 :00 Metoprolol Succinate ER 100 MG Tablet Extended Release 24 Hour 1 30 Tablet 5 7887302 9 710 Taking 11/11 00:00 :00 Metoprolol Succinate ER 100 MG Tablet Extended Release 24 Hour 1 30 Tablet 5 3305343 9 710 Taking 10/17 00:00 :00 Metoprolol Succinate ER 100 MG Tablet Extended Release 24 Hour 1 30 Tablet 5 6291063 9 710 Start 10/17 00:00 :00 Metoprolol Succinate ER 100 MG Tablet Extended Release 24 Hour 0 30 Tablet 5 7078853 9 710 Stop 09/27 00:00 :00 Metoprolol Succinate ER 100 MG Tablet Extended Release 24 Hour 1 30 Tablet 5 1228894 9 710 Taking 09/15 00:00 :00 Metoprolol Succinate ER 100 MG Tablet Extended Release 24 Hour 1 30 Tablet 5 [id number] 9 710 Taking 08/20 00:00 :00 Metoprolol Succinate ER 100 MG Tablet Extended Release 24 Hour 1 30 Tablet 5 [id number] 9 710 Taking 07/25 00:00 :00 Metoprolol Succinate ER 100 MG Tablet Extended Release 24 Hour 1 30 Tablet 5 0184125 9 710 Taking 07/20 00:00 :00 Metoprolol Succinate ER 100 MG Tablet Extended Release 24 Hour 1 30 Tablet 5 9569602 9 710 Taking 11/21 00:00 :00 Plavix 75 MG Tablet 0 30 5 40524782 190 Stop 11/11 00:00 :00 Plavix 75 MG Tablet 1 30 5 07168679 190 Taking 09/27 00:00 :00 Plavix 75 MG Tablet 1 30 5 24719532 190 Taking 09/15 00:00 :00 Plavix 75 MG Tablet 1 30 5 56946348 190 Taking 08/20 00:00 :00 Plavix 75 MG Tablet 1 30 5 31823927 190 Taking 07/25 00:00 :00 Plavix 75 MG Tablet 1 30 5 78078887 190 Taking 07/20 00:00 :00 Plavix 75 MG Tablet 1 30 5 83877023 190 Taking 06/07 00:00 :00 Promethazin e-DM 6.25-15 MG/5ML Syrup 03/22/2024 00:00:00 0 240 mL 1 [id number] 5 701 P Discontinu ed 03/22 00:00 :00 Promethazin e-DM 6.25-15 MG/5ML Syrup 03/22/2024 00:00:00 1 240 mL 1 [id number] 5 701 P Start 11/11 00:00 :00 Promethazin e-DM 6.25-15 MG/5ML Syrup 07/21/2023 00:00:00 0 473 mL 0 [id number] 5 701 P Discontinu ed 09/27 00:00 :00 Promethazin e-DM 6.25-15 MG/5ML Syrup 07/21/2023 00:00:00 1 473 mL 0 [id number] 5 701 P Taking 09/15 00:00 :00 Promethazin e-DM 6.25-15 MG/5ML Syrup 07/21/2023 00:00:00 1 473 mL 0 [id number] 5 701 P Unknown Status 09/15 00:00 :00 Promethazin e-DM 6.25-15 MG/5ML Syrup 07/21/2023 00:00:00 1 473 mL 0 [id number] 5 701 P Taking 08/20 00:00 :00 Promethazin e-DM 6.25-15 MG/5ML Syrup 07/21/2023 00:00:00 1 473 mL 0 [id number] 5 701 P Taking 07/25 00:00 :00 Promethazin e-DM 6.25-15 MG/5ML Syrup 07/21/2023 00:00:00 1 473 mL 0 [id number] 5 701 P Taking 07/20 00:00 :00 Promethazin e-DM 6.25-15 MG/5ML Syrup 07/21/2023 00:00:00 1 473 mL 0 [id number] 5 701 P Start 07/03 00:00 :00 Repatha SureClick 140 MG/ML Solution Auto-inject or 1 [id number] 001 Taking 06/30 00:00 :00 Repatha SureClick 140 MG/ML Solution Auto-inject or 1 97558322 001 Taking 06/28 00:00 :00 Repatha SureClick 140 MG/ML Solution Auto-inject or 1 89575089 001 Taking 06/07 00:00 :00 Repatha SureClick 140 MG/ML Solution Auto-inject or 1 76855246 001 Taking 03/22 00:00 :00 Repatha SureClick 140 MG/ML Solution Auto-inject or 1 86744753 001 Taking 02/02 00:00 :00 Repatha SureClick 140 MG/ML Solution Auto-inject or 1 78232852 001 Continue 02/02 00:00 :00 Repatha SureClick 140 MG/ML Solution Auto-inject or 1 6 Millilite r 1 [id number] 001 Taking 01/11 00:00 :00 Repatha SureClick 140 MG/ML Solution Auto-inject or 1 6 Millilite r 1 [id number] 001 Taking 01/05 00:00 :00 Repatha SureClick 140 MG/ML Solution Auto-inject or 1 6 Millilite r 1 [id number] 001 Taking 01/02 00:00 :00 Repatha SureClick 140 MG/ML Solution Auto-inject or 1 6 Millilite r 1 74350264 001 Start 01/02 00:00 :00 Repatha SureClick 140 MG/ML Solution Auto-inject or 0 6 Millilite r 0 [id number] 001 Stop 11/11 00:00 :00 Repatha SureClick 140 MG/ML Solution Auto-inject or 1 6 Millilite r 0 [id number] 001 Taking 09/27 00:00 :00 Repatha SureClick 140 MG/ML Solution Auto-inject or 1 6 Millilite r 0 [id number] 001 Taking 09/20 00:00 :00 Repatha SureClick 140 MG/ML Solution Auto-inject or 1 6 Millilite r 0 [id number] 001 Start 09/20 00:00 :00 Repatha SureClick 140 MG/ML Solution Auto-inject or 0 6 Millilite r 0 [id number] 001 Stop 09/15 00:00 :00 Repatha SureClick 140 MG/ML Solution Auto-inject or 1 6 Millilite r 0 [id number] 001 Taking 08/20 00:00 :00 Repatha SureClick 140 MG/ML Solution Auto-inject or 1 6 Millilite r 0 [id number] 001 Taking 07/25 00:00 :00 Repatha SureClick 140 MG/ML Solution Auto-inject or 1 6 Millilite r 0 [id number] 001 Taking 07/20 00:00 :00 Repatha SureClick 140 MG/ML Solution Auto-inject or 1 6 Millilite r 0 [id number] 001 Taking 07/03 00:00 :00 Tamsulosin HCl 0.4 MG Capsule 1 30 82638 299 611 Taking 06/30 00:00 :00 Tamsulosin HCl 0.4 MG Capsule 1 30 81102 299 611 Taking 06/28 00:00 :00 Tamsulosin HCl 0.4 MG Capsule 1 30 50166 299 611 Taking 06/07 00:00 :00 Tamsulosin HCl 0.4 MG Capsule 1 30 58731 299 611 Taking 03/22 00:00 :00 Tamsulosin HCl 0.4 MG Capsule 1 30 88511 299 611 Taking 02/02 00:00 :00 Tamsulosin HCl 0.4 MG Capsule 1 30 20293 299 611 Taking 01/11 00:00 :00 Tamsulosin HCl 0.4 MG Capsule 1 30 79452 299 611 Taking 01/05 00:00 :00 Tamsulosin HCl 0.4 MG Capsule 1 30 01926 299 611 Taking 11/11 00:00 :00 Tamsulosin HCl 0.4 MG Capsule 1 30 48619 299 611 Taking 09/27 00:00 :00 Tamsulosin HCl 0.4 MG Capsule 1 30 34560 299 611 Taking 09/15 00:00 :00 Tamsulosin HCl 0.4 MG Capsule 1 30 80113 299 611 Taking 08/20 00:00 :00 Tamsulosin HCl 0.4 MG Capsule 1 30 34631 299 611 Taking 07/25 00:00 :00 Tamsulosin HCl 0.4 MG Capsule 1 30 62536 299 611 Taking 07/20 00:00 :00 Tamsulosin HCl 0.4 MG Capsule 1 30 24839 299 611 Taking 07/03 00:00 :00 traMADol HCl 50 MG Tablet 1 7156118 5 801 Taking 06/30 00:00 :00 traMADol HCl 50 MG Tablet 1 6431104 5 801 Taking 06/28 00:00 :00 traMADol HCl 50 MG Tablet 1 8010102 5 801 Taking 06/07 00:00 :00 traMADol HCl 50 MG Tablet 1 [id number] 5 801 Taking 03/22 00:00 :00 traMADol HCl 50 MG Tablet 1 1798414 5 801 Taking 02/02 00:00 :00 traMADol HCl 50 MG Tablet 1 [id number] 5 801 Taking 01/11 00:00 :00 traMADol HCl 50 MG Tablet 1 [id number] 5 801 Taking 01/05 00:00 :00 traMADol HCl 50 MG Tablet 1 5901604 5 801 Taking
== END 2024-08-02 23:59 | disposition home or self-care (01) ==
LOC: SC.PAIN 11:18
PROVIDERS: PCP Family Medicine; Visit Provider Nurse Practitioner Family
DX: M51.16 Intervertebral disc disorders with radiculopathy, lumbar region (principal); M54.9 Dorsalgia, unspecified; G89.29 Other chronic pain; Z87.891 Personal history of nicotine dependence
CPT/HCPCS: 99212; G0463

== ENCOUNTER 2024-09-11 10:24 | Outpatient (POV) | payer MEDICARE, SELFPAY ==
[2024-09-11 10:30] VITALS: BP 116/75; PULSE 60; RESP 14; O2SAT 98; BMI 27.2
--- NOTE | 2024-09-11 10:42 | EXP.PAIN.SOA ---
[facility] Disclaimer: The information contained in this section may have been updated after the patient was seen, as this information can be updated by other users. Medical History (Updated 09/11/24 @ 10:43 by Keysha Gibbons APRN) Degenerative disc disease, lumbar Lumbar radiculopathy H/O penicillin-type antibiotic allergy Bilateral leg pain History of CVA (cerebrovascular accident) Influenza-like illness Lumbar back sprain Sinusitis Bronchitis Infected sebaceous cyst of skin Hydronephrosis Cervical sprain Spinal stenosis, lumbar region with neurogenic claudication Lumbar post-laminectomy syndrome Stroke Abscess, dental LV dysfunction Encounter for pre-operative cardiovascular clearance Obesity Hyperlipidemia Hypertensive heart disease without heart failure Coronary arteriosclerosis Family History Other No significant family history Social History Smoking Status: Former smoker alcohol intake: never substance use type: denies use current occupational status: other Travel in the last 8 weeks?: None PM Subjective & Objective Subjective Subjective:: Patient is a pleasant 74-year-old male who presents today for worsening pain. Today he rates his pain at 6 out of 10. Patient states the pain is all at his low back and hips and does go into his upper thighs with numbness and tingling. Patient does state the pain is worse with prolonged sitting or standing and he frequently has to change positions due to the worsening pain. He states that stairs are very painful and that it is interfering with his ability perform activities of daily living such as cooking and cleaning. Patient denies any new falls or injuries. He has managed with tramadol 50 mg at bedtime from our office and states he does still feel like this is helpful. His Aly has been reviewed and is appropriate. Review of Systems: General: No recent weight changes, no fever, no sleep disturbances Respiratory: No cough, no shortness of air, no recurring pulmonary infections Cardiovascular/peripheral vascular: No chest pain, no palpitations, no edema, no shortness of breath Gastrointestinal: No new onset incontinence, normal bowel movements reported Genitourinary: No new onset incontinence Musculoskeletal: Low back pain, bilateral hip pain Psychiatric: [Normal mood/affect] Neurological: [Denies weakness in extremities], [denies balance issues] Pain at rest (0-10 scale): 6 Objective Objective:: Physical Exam: General: Alert and oriented x3, no acute distress, pleasant and cooperative Lungs: Respirations even and unlabored, symmetrical chest expansion Eyes: PERRL Musculoskeletal: Flexion and extension of lumbar [spine] somewhat guarded secondary to pain, [antalgic gait noted] point tenderness along bilateral SIs with positive bilateral Mat's, Court's, Gaenslen's, compression and distraction exam Neurological: Speech clear, no gross sensory deficit Has patient had previous pain injection?: No Conservative treatment options previously tried: Home exercise plan Length of treatment: Longer than 12 weeks Meds Home Medications and Allergies Home Medications ?Medication ?Instructions ?Recorded ?Confirmed ?Type cholecalciferol (vitamin D3) 25 1,000 unit PO DAILY 07/05/17 09/11/24 History mcg (1,000 unit) capsule metoprolol succinate 100 mg 100 mg PO DAILY 07/05/17 09/11/24 History tablet,extended release 24 hr (Toprol XL) valsartan 80 mg tablet (Diovan) 80 mg PO DAILY 07/05/17 09/11/24 History evolocumab 140 mg/mL subcutaneous 140 mg SQ Q2W 07/06/17 09/11/24 History pen injector (Repatha SureClick) clopidogrel 75 mg tablet 75 mg PO DAILY 10/06/22 09/11/24 History gabapentin 300 mg capsule 300 mg PO BID 10/06/22 09/11/24 History empagliflozin 10 mg tablet 10 mg PO DAILY 02/14/24 09/11/24 History (Jardiance) aspirin 81 mg tablet,delayed 81 mg PO DAILY 03/27/24 09/11/24 History release (Adult Low Dose Aspirin) amoxicillin 875 mg-potassium 1 tab PO Q12H #14 tabs 03/30/24 09/11/24 Rx clavulanate 125 mg tablet tramadol 50 mg tablet 50 mg PO DAILYP PRN Pain (Scale 06/22/24 09/11/24 Rx Score 1-6) #30 tabs New Prescriptions to Start Prescriptions: Allergies Allergy/AdvReac Type Severity Reaction Status Date / Time azithromycin (AZITHROMYCIN) Allergy Unknown Verified 03/27/24 08:54 Penicillins (PENICILLINS) Allergy Unknown Verified 03/27/24 08:54 cefdinir Allergy Verified 03/27/24 08:54 morphine (MORPHINE) AdvReac Unknown Nausea Verified 03/27/24 08:54 Assessment and Plan *Assessment and plan (1) Bilateral sacroiliitis: Status: Acute Category: Medical Code(s): M46.1 - Sacroiliitis, not elsewhere classified Plan Patient is experiencing worsening pain along the low back and bilateral hips. They did have limited range of motion of the lumbar spine along with point tenderness along bilateral SI joints and a positive bilateral Mat's, Court's, Gaenslen's, compression and distraction exam. I did discuss with the patient that I do believe they would benefit from bilateral SI injections. Risk and benefits were discussed with the patient and they would like to proceed forward with this option. Patient has tried and failed conservative therapy including oral medication, heat and ice, topicals, continued at home stretching exercise for longer than 12 weeks. Patient does have a longstanding history of chronic back pain for longer than 6 months. If the patient does get significant relief following these injections we will see in the future if they would benefit from a second set with the possibility of SI fusion at a later date. This will be a diagnostic injection with less than 1 mL solution to be injected. Patient has not had any of these injections in the past. Patient will be scheduled for bilateral SI injections under fluoroscopy. Will also send in a prescription of methocarbamol 500 mg 3 times daily as needed with a 2-week dose. Patient has been instructed to contact the clinic with any concerns before the next appointment. Dr. Ramirez has reviewed this note and agrees with this plan of care. This note was dictated using voice recognition software and make contain errors or omissions. All injections are used with Lidocaine or Bupivacaine and dexamethasone unless diagnostic in which no steroids were injected.
== END 2024-09-11 23:59 | disposition home or self-care (01) ==
PROVIDERS: PCP Family Medicine; Visit Provider Nurse Practitioner Family
DX: M46.1 Sacroiliitis, not elsewhere classified (principal); Z73.89 Other problems related to life management difficulty
CPT/HCPCS: 99212; G0463

== ENCOUNTER 2024-10-10 11:11 | Day surgery (SDC) | payer MEDICARE, SELFPAY ==
[2024-10-10 11:17] VITALS: BP 114/60; PULSE 62; RESP 16; TEMP 36.2; O2SAT 97; BMI 27.9
[2024-10-10 11:35] VITALS: BP 112/70; PULSE 60; RESP 16; O2SAT 97
--- NOTE | 2024-10-10 11:36 | P.PCN_ITS ---
Procedure Date: 10/10/24 Time: 11:15 Anesthesiologist:: Conor Cordon CRNA Complications:: None Pre-procedure Diagnosis:: Bilateral sacroiliitis Post-procedure Diagnosis:: Same Indications for Procedure:: Patient is a very pleasant 74-year-old male who comes our clinic today for bilateral sacroiliac joint injection cortisone local anesthetic. Patient describes low lumbar back pain bilaterally. Bilateral posterior hip pain. Difficulty transitioning from sitting to standing. Difficulty with ambulation due to bilateral posterior hip pain. He rates his pain 7/10. Procedure Details:: Procedure: Bilateral sacroiliac joint injections under fluoroscopy Informed consent was obtained and the risks and benefits of the procedure were explained to the patient.~ The patient was taken to the procedure room and noninvasive monitors were placed including a noninvasive blood pressure cuff and pulse oximeter.~ The patient was placed prone on the procedure table. Both hips were cleansed using Betadine as a cleansing solution. C-arm fluoroscopy was used to view the right sacroiliac joint.~ The skin and subcutaneous tissues were anesthetized using lidocaine 1.5% and a 25-gauge needle.~ After this, a 22-gauge spinal needle was inserted under fluoroscopic guidance into the inferior aspect of the right sacroiliac joint.~ Omnipaque dye was injected and good spread was seen throughout the joint.~ After this, approximately 5 mL of bupivacaine, 0.25% and Depo-Medrol, 40 mg was incrementally injected into the right sacroiliac joint. We then moved to the left sacroiliac joint.~ The skin and subcutaneous tissues were anesthetized using lidocaine 1.5% and a 25-gauge needle.~ After this, a 22- gauge spinal needle was inserted under fluoroscopic guidance into the inferior aspect of the left sacroiliac joint.~ Omnipaque dye was injected and good spread was seen throughout the joint. After this, approximately 5 mL of bupivacaine, 0.25% and Depo-Medrol, 40 mg was incrementally injected into the left sacroiliac joint.~ The patient tolerated the procedure well with no complications. The patient was observed in the Pain Clinic and then was discharged home neurologically intact. Plan and Disposition:: Patient was discharged without incident.
[2024-10-10] MEDS: LIDOCAINE 1% 5ML PF VIAL 5 ML (12:29)
[2024-10-10] MEDS: BUPIVACAINE 0.25% 10ML INJ 25 MG IJ (12:29)
[2024-10-10] MEDS: DEXAMETHASONE 10MG/ML 1ML VIAL 10 MG (12:29)
[2024-10-10 12:30] VITALS: BP 139/80; PULSE 63; RESP 18; O2SAT 96
[2024-10-10 12:31] VITALS: BP 139/80; PULSE 63; RESP 18; O2SAT 96
== END 2024-10-10 11:35 | disposition home or self-care (01) ==
PROVIDERS: PCP Family Medicine; Visit Provider Nurse Anesthetist, Certified Registered
DX: M46.1 Sacroiliitis, not elsewhere classified (principal); E78.5 Hyperlipidemia, unspecified; I25.10 Atherosclerotic heart disease of native coronary artery without angina pectoris; I11.9 Hypertensive heart disease without heart failure; Z87.891 Personal history of nicotine dependence; Z79.899 Other long term (current) drug therapy; Z79.620 Long term (current) use of immunosuppressive biologic; Z88.0 Allergy status to penicillin; Z79.82 Long term (current) use of aspirin; Z79.02 Long term (current) use of antithrombotics/antiplatelets; Z79.84 Long term (current) use of oral hypoglycemic drugs; Z88.1 Allergy status to other antibiotic agents; Z88.3 Allergy status to other anti-infective agents; Z88.5 Allergy status to narcotic agent
CPT/HCPCS: G0260; J0665; J1100; J2003

== ENCOUNTER 2024-11-01 15:18 | Outpatient (POV) | payer MEDICARE, SELFPAY ==
--- OUTSIDE RECORDS SUMMARY | 2024-06-30 06:00 | XMS_ITS ---
[facility] Address [address] [place] [id number] Care Team Providers Care Unhairer Name Role Phone Luis Swanson Primary Care Provider [phone] Allergies Allergen (clinical drug ingredient) Drug/Non Drug Allergy documented on EMR Reaction Allergy Type Onset Date Status amlodipine / benazepril Lotrel Unknown Drug Allergy Active azithromycin Zithromax Z-Jacinto rash Drug Allergy Active cefdinir Cefdinir rash, diarrhea Drug Allergy Ac tive codeine Codeine Unknown Drug Allergy Active Penicillin Unknown Drug Allergy Active Substance with 9-rnepkbc-6-methylgl utaryl-coenzyme A reductase inhibitor mechanism of action (substance) Statins Muscle weakness Drug Allergy Active REASON FOR VISIT f/u, gauze removal Medications Medication SIG (Take, Route, Frequency, Duration) Notes Start Date End Date Status Repatha SureClick 140 MG/ML DIRECTED SUBCUTANEOUSLY EVERY 2 WEEKS Active Gabapentin 300 MG 1 cap(s) orally 2 ti mes a day; Duration: 90 days 02/09/2024 Active Clopidogrel Bisulfate 75 MG 1 tablet Orally Once a day; Duration: 30 days Active Jardiance 10 MG 1 tablet Orally Once a day; Duration: 90 days 02/07/2024 Active Metoprolol Succinate ER 100 MG 1 tablet Orally Once a day; Duration: 30 days Active B-12 1000 MCG 1 tab(s) orally once a day Active Diovan 80 MG 1 tab(s) orally 2 ti mes a day Active Tamsulosin HCl 0.4 MG 1 capsule Orally O nce a day; Duration: 30 day(s) Active Flonase Allergy Relief 50 MCG/ACT 1 spray in each nostril Nasally Once a day 10/01/2022 Active Maximum D3 325 MCG (62025 UT) as directed Orally Active traMADol HCl 50 MG 1 tablet as needed O rally Once a day Active Vital Signs Blood pressure systolic 122 mm Hg 07/01/19 25 Blood pressure diastolic 72 mm Hg 025 Heart Rate 58 /min 06/30/2024 Height 69.50 in 06/30/2024 Weight 212 lbs 06/30/2024 BMI 30.85 kg/m2 06/30/2024 Encounters Encounter Location Date Provider Diagnosis [facility] [address] [facility] [address] [facility] [address] [place] [id number] 06/30/2024 Luis Swanson Visit for wound chec k Z51.89 Assessments Encounter Date Diagnosis (ICD Code) Assessment Notes Treatment Notes Treatment Clinical Notes Section Notes 06/30/2024 Visit for wound check (ICD-10 - Z51.89) Iodoform gauze removed without difficulty, band aid placed over wound Plan Of Treatment Treatment Notes Assessment Notes Visit for wound check Iodoform gauze rem kendal without difficulty, band aid placed over wound Next Appt Details Follow Up: prn, Reason: Provider Name:Luis Mitchell ry, 02/02/2025 09:30:00 AM, [address] [facility] [address] [facility], [address], [place], [phone], Progress Notes * KAREN GREERDOB:1950 (74 yo M)Acc No.[id number]:06/30/2024 Patient: KAREN ARMAS Provider: Geena Swanson M.D. :1950 A ge:73 Y S ex:Male Date:06/30/2024 Address:[address] [place] [address] [id number] Subjective: * Chief Complaints: * 1 . F/u, gauze removal. * HPI: D ermatology: 73 year old male presents with c/o cyst P t here to have packing removed from 06/28/2024 cyst removal on rt side of neck. * ROS: C ARDIOLOGY: no D izziness. n o C hest pain. G ASTROENTEROLOGY: no N ausea. n o V omiting. U ROLOGY: no D ifficulty urinating. n o B lood in urine. * Medical History: H ypertension, Ischemic Stroke, Allergic Rhinitis, Lumbar Disc Disease, Cervical Disc Disease, Coronary Artery Disease, Myocardial Infarction, 01/2010, non STEMI - Feb 02, 2017 - Dr. Marc, Stain (multiple) induced myopathy, Kidney stones, numerous, Vasovagal Near Syncope 11/2015. * Surgical History: C ervical Fusion 2007, Back x 2 2008, Heart Attack, Stents x 3- [facility] 02/09/2010, Stents x 3 - Dr. Marc 02/03/2017, Infected Cyst/Spider Bite - [facility] [place] 02/24/2022, RT Leg Lesion Removal 09/07/2022, 12/10 ans 01/12 Kindney stones crushed 11/26/2022. * Hospitalization/Major Diagno stic Procedure: S troke 10/2005, Tachycardia, Dehydration, and Pneumonia , Low Blood Pressure- [facility] 06/18/2012, [facility] - Kidney Stone- [facility] 09/25/2016. * Family History: F ather: , Parkinsons. M other: , leukemia. 4 brother(s) , 2 sister(s) . 1 son(s) , 1 daughter(s) . . * Social History: C URRENT TOBACCO USE S moking Status: Patient does NOT smoke. C affeine: yes, frequency: Coke. Exercise: yes. Marital Status: . Past smoking status: no. Alcohol: no. * Medications: T aking traMADol HCl 50 MG Tablet 1 tablet as needed Orally Once a day , Taking Tamsulosin HCl 0.4 MG Capsule 1 capsule Orally Once a day , Taking Flonase Allergy Relief 50 MCG/ACT Suspension 1 spray in each nostril Nasally Once a day , Taking Maximum D3 325 MCG (79109 UT) Capsule as directed Orally , Taking B-12 1000 MCG Tablet 1 tab(s) orally once a day , Taking Diovan 80 MG Tablet 1 tab(s) orally 2 times a day , Taking Repatha SureClick 140 MG/ML Solution Auto-injector DIRECTED SUBCUTANEOUSLY EVERY 2 WEEKS , Taking Gabapentin 300 MG Capsule 1 cap(s) orally 2 times a day , Taking Jardiance 10 MG Tablet 1 tablet Orally Once a day , Taking Metoprolol Succinate ER 100 MG Tablet Extended Release 24 Hour 1 tablet Orally Once a day , Taking Clopidogrel Bisulfate 75 MG Tablet 1 tablet Orally Once a day , Medication List reviewed and reconciled with the patient * Allergies: P enicillin: Side Effects, Codeine, Lotrel, Zithromax Z-Jacinto: rash, Statins: Muscle weakness - Side Effects, Cefdinir: rash, diarrhea. Objective: * Vitals: W t:212, Temp:97.9, BP:122/72, HR:58, O2 Sat:94% on RA, Nurse:rené, Ht: 69.50, BMI:30.85. * Examination: G eneral Examination: General Appearance: N AD. S kin: s kin redness around I&D site has resolved, iodoform gauze in place. Assessment: * Assessment: 1. V isit for wound check - Z51.89 (Primary) Plan: * Treatment: * Follow Up: p rn * Images: Billing Information: * Visit Code: * Procedure Codes: * Electronic signature of Fransisca Swanson MD on 11/01/2024 at 03:22 PM EDT Sign off status: Pending * Provider: Geena Swanson M.D. Date: 0 06/30/2024 Generated for Quinn toth/Blaise/Miroslava on: 0 11/01/2024 03:22 PM EDT History and Physical Notes * HPI (History of Present Illness) Category Sub-Category Detail Notes Category Not es Dermatology cyst Pt here to have packing removed from 06/28/2024 cyst removal on rt side of neck Examination Category Sub-Category Detail Notes Category Not es General Examination General Appearance: NAD Skin: skin redness around I&D site has resolved, iodoform gauze in place
--- OUTSIDE RECORDS SUMMARY | 2024-07-03 11:00 | XMS_ITS ---
[facility] Address [address] [place] [id number] Care Team Providers Care Cherry Pitter Name Role Phone Luis Swanson Primary Care Provider Allergies Allergen (clinical drug ingredient) Drug/Non Drug Allergy documented on EMR Reaction Allergy Type Onset Date Status amlodipine / benazepril Lotrel Unknown Drug Allergy Active azithromycin Zithromax Z-Jacinto rash Drug Allergy Active cefdinir Cefdinir rash, diarrhea Drug Allergy Ac tive codeine Codeine Unknown Drug Allergy Active Penicillin Unknown Drug Allergy Active Substance with 4-waqmtst-2-methylgl utaryl-coenzyme A reductase inhibitor mechanism of action (substance) Statins Muscle weakness Drug Allergy Active Results Component Value Reference Range Notes CBC Fingerstick (in house) Reviewed date:07/03/2024 03:15:13 PM Interpretation: Performing Lab: Notes/Report: wbc 14.9 3.5 - 10 lym 10.5% 15 - 50 mid 14.8% 2 - 15 gran 74.7% 35 - 80 rbc 5.62 3.5 - 5.5 hgb 18.0 11.5 - 16.5 hct 55.1 35 - 55 mcv 98.1 75 - 100 mch 32.1 25 - 35 mchc 32.7 31 - 38 plat 219 100 - 400 REASON FOR VISIT poss sinus infection Medications Medication SIG (Take, Route, Frequency, Duration) Notes Start Date End Date Status Clopidogrel Bisulfate 75 MG 1 tablet Orally Once a day; Duration: 30 days Active Metoprolol Succinate ER 100 MG 1 tablet Orally Once a day; Duration: 30 days Active Jardiance 10 MG 1 tablet Orally Once a day; Duration: 90 days 02/07/2024 Active Gabapentin 300 MG 1 cap(s) orally 2 ti mes a day; Duration: 90 days 02/09/2024 Active Repatha SureClick 140 MG/ML DIRECTED SUBCUTANEOUSLY EVERY 2 WEEKS Active Maximum D3 325 MCG (04396 UT) as directed Orally Active Flonase Allergy Relief 50 MCG/ACT 1 spray in each nostril Nasally Once a day 10/01/2022 Active Doxycycline Hyclate 100 MG 1 capsule Orally Twice a day; Duration: 5 day(s) 07/03/2024 Active B-12 1000 MCG 1 tab(s) orally once a day Active Diovan 80 MG 1 tab(s) orally 2 ti mes a day Active Tamsulosin HCl 0.4 MG 1 capsule Orally O nce a day; Duration: 30 day(s) Active traMADol HCl 50 MG 1 tablet as needed O rally Once a day Active Vital Signs Weight 210 lbs 07/03/2024 Blood pressure systolic 118 mm Hg 07/04/19 25 Blood pressure diastolic 70 mm Hg 025 Heart Rate 60 /min 07/03/2024 Height 69.50 in 07/03/2024 BMI 30.56 kg/m2 07/03/2024 Encounters Encounter Location Date Provider Diagnosis [facility] [address] [facility] [address] [facility] [address] [place] [phone] 07/03/2024 Luis Swanson Acute URI J06.9 Assessments Encounter Date Diagnosis (ICD Code) Assessment Notes Treatment Notes Treatment Clinical Notes Section Notes 07/03/2024 Acute URI (ICD-10 - J06.9) Plan Of Treatment Medication Medication Name Sig Start Date Stop Date Notes Doxycycline Hyclate 100 MG 1 capsule Ora lly Twice a day; Duration: 5 day(s) 07/03/2024 Next Appt Details Follow Up: prn, Reason: Provider Name:Luis Mitchell ry, 02/02/2025 09:30:00 AM, [address] [facility], [address], [place], [phone], Progress Notes * CECELIA GREER:1950 (74 yo M)Acc No.[id number]:07/03/2024 Progress Notes Patient: KAREN ARMAS Provider: Geena Swanson M.D. :1950 A ge:73 Y S ex:Male Date:07/03/2024 Address:[address] [place] [address] [id number] Subjective: * Chief Complaints: * 1 . Poss sinus infection. * HPI: E NT/respiratory: 73 year old male presents with c/o cough P t complains of dry without any sputum production cough that started yesterday. Associated with nasal congestion .? Denies : Fever. D enies : body aches. * ROS: D ERMATOLOGY: no R cleopatra. n o H kavin. G ASTROENTEROLOGY: no N ausea. n o [...] Dr. Marc 02/03/2017, Infected Cyst/Spider Bite - [facility] 02/24/2022, RT Leg Lesion Removal 09/07/2022, 12/10 ans 01/12 Kindney stones crushed 11/26/2022. * Hospitalization/Major Diagno stic Procedure: S troke 10/2005, Tachycardia, Dehydration, and Pneumonia , Low Blood Pressure- [facility] 06/18/2012, [facility] - Kidney Stone- [facility] 09/25/2016. * Family History: F [...] day , Taking Maximum D3 325 MCG (60457 UT) Capsule as directed Orally , Taking [...] Cefdinir: rash, diarrhea. Objective: * Vitals: W t:210, Temp:97.6, BP:118/70, HR:60, O2 Sat:96% on RA, Nurse:rené, Ht: 69.50, BMI:30.56. * Examination: E NT/Respiratory: General Appearance: N AD. E yes: P ERRLA, sclera clear. N ose : nares patent, cloudy rhinorrhea. S inuses : tender maxillary sinuses bilaterally. O ral cavity : erythema without exudate on pharynx. N ginny : n o cervical lymphadenopathy. H eart : R RR, normal S1 S2. L ungs: c lear to auscultation bilaterally. Assessment: * Assessment: 1. Naomi alfaro URI - J06.9 (Primary) Plan: * Treatment: Value Reference Range w bc 14.9 3.5 - 10 * l ym 10.5% 15 - 50 * m id 14.8% 2 - 15 * g ran 74.7% 35 - 80 * r bc 5.62 3.5 - 5.5 * h gb 18.0 11.5 - 16.5 * h ct 55.1 35 - 55 * m cv 98.1 75 - 100 * m ch 32.1 25 - 35 * m chc 32.7 31 - 38 * p lat 219 100 - 400 * Esther Flores 07/03/2024 3:14:50 PM > , Provider reviewed results while patient in office. * Procedure Codes: G 2211 Complex e/[place], [address] [place], [address] CAPILLARY BLOOD DRAW, 825[address] CBC WITH AUTO DIFF * Follow Up: p rn * Images: Billing Information: * Visit Code: 28138 Office Visit, Est Pt., Level 3. Modifiers: 24 * Procedure Codes: G2211 Complex e/[place]. [address] [place]. [address] CAPILLARY BLOOD DRAW. 485[address] CBC WITH AUTO DIFF. * Electronic signature of Fransisca Swanson MD on 11/01/2024 at 03:21 PM EDT Sign off status: Pending * Provider: Geena Swanson M.D. Date: 0 07/03/2024 Generated for Quinn toth/Blaise/eTransmitting on: 0 11/01/2024 03:21 PM EDT History and Physical Notes * HPI (History of Present Illness) Category Sub-Category Detail Notes Category Not es ENT/respiratory cough Pt complains of dry without any sputum production cough that started yesterday. Associated with nasal congestion Fever body aches Examination Category Sub-Category Detail Notes Category Not es ENT/Respiratory Oral cavity : erythema without exudate on pharynx Sinuses : tender maxillary sin uses bilaterally Neck : no cervical lymphade nopathy Heart : RRR, normal S1 S2 Lungs: clear to auscultatio n bilaterally General Appearance: NAD Nose : nares patent, cloudy rhinorrhea Eyes: PERRLA, sclera clear
--- OUTSIDE RECORDS SUMMARY | 2024-08-03 05:15 | XMS_ITS ---
Author Organization [facility] Address [address] [place] [id number] Care Team Providers Care Blindmaker Name Role Phone Luis Swanson Primary Care Provider [phone] Allergies Allergen (clinical drug ingredient) Drug/Non Drug Allergy documented on EMR Reaction Allergy Type Onset Date Status amlodipine / benazepril Lotrel Unknown Drug Allergy Active azithromycin Zithromax Z-Jacinto rash Drug Allergy Active cefdinir Cefdinir rash, diarrhea Drug Allergy Ac tive codeine Codeine Unknown Drug Allergy Active Penicillin Unknown Drug Allergy Active Substance with 6-xveycrc-7-methylgl utaryl-coenzyme A reductase inhibitor mechanism of action (substance) Statins Muscle weakness Drug Allergy Active Results Component Value Reference Range Notes P-Vitamin B12 Reviewed date:08/04/2024 01:09:41 PM Interpretation: Normal Performing Lab: Notes/Report: Test performed by [facility] [address] [place] [address] , [place] [address] Franky Alex MD, Hospice Home Care Coordinator CLIA: [id number] Vitamin B12 [phone] pg/mL P-Basic Metabolic Panel (BMP ) Reviewed date:08/04/2024 01:09:41 PM Interpretation:glu 139, BUN 29, creat 1.71, eGFR 42 Performing Lab: Notes/Report: Test performed by [facility] [address] [place], [place] [address], [place] [address] Franky Alex MD, Hospice Home Care Coordinator CLIA: [id number] Sodium 142 135-145 mmol/L Potassium 5.0 3.5-5.3 mmol/L Chloride 102 97-108 mmol/L CO2 27 22-32 mmol/L Glucose 139 65-99 mg/dL BUN 29 8-23 mg/dL Creatinine 1.71 0.70-1.30 mg/dL Calcium 10.1 8.6-10.4 mg/dL eGFR by Creatinine 42 >59 mL/min/1.73m2 P-Hemoglobin A1C Reviewed date:08/04/2024 01:09:41 PM Interpretation:6.1 Performing Lab: Notes/Report: Test performed by [facility] [address] [place], [place] [address] , [address], [place] [address] Franky Alex MD, Hospice Home Care Coordinator CLIA: [id number] Hemoglobin A1C 6.1 <5.7 % The following HbA1c ranges recommended by the [place] [employer] (ADA) may be used as an aid in the diagnosis of diabetes mellitus. HbA1c Suggested Diagnosis >=6.5% Diabetic 5.7% - 6.4% Pre-Diabetic <5.7% Non-Diabetic P-Vitamin D 25-Hydroxy Reviewed date:08/04/2024 01:09:41 PM Interpretation: Normal Performing Lab: Notes/Report: Test performed by [facility] [address] [place] [address] , [address], [place] [address] Franky Alex MD, Hospice Home Care Coordinator CLIA: [id number] Vitamin D 25-Hydroxy 78.7 30.0-100.0 ng/mL Interpretation of Vitamin D 25 [place]: < 20 ng/mL - Deficiency 20 - 29 ng/mL - Insufficiency 30 - 100 ng/mL - Sufficiency > 100 ng/mL - Super-therapeutic- toxicity may occur above this level. Clinical correlation required. Estimated Average Glucose Reviewed date:08/04/2024 01:09:41 PM Interpretation: Normal Performing Lab: Notes/Report: Test performed by [facility] [address] [place] [address] [address], [place] [address] Franky Alex MD, Hospice [facility] Care Coordinator CLIA: [id number] Estimated Average Glucose (eAG) 128 Estimated Average Glucose (eAG) is calculated using the equation eAG = (28.7 x HbA1c) - 46.7 based on the guidelines established by the ADA. If the patient has certain diseases including kidney disease, sickle cell anemia, thalassemia, or is taking medications such as dapsone, erythropoietin, or iron, eAG should not be evaluated. REASON FOR VISIT 6 months Medications Medication SIG (Take, Route, Frequency, Duration) Notes Start Date End Date Status Doxycycline Hyclate 100 MG 1 capsule Orally Twice a day; Duration: 5 day(s) 07/03/2024 Active Clopidogrel Bisulfate 75 MG 1 tablet Orally Once a day; Duration: 30 days Active B-12 1000 MCG 1 tab(s) orally once a day Active Repatha SureClick 140 MG/ML DIRECTED SUBCUTANEOUSLY EVERY 2 WEEKS Active Gabapentin 300 MG 1 cap(s) orally 2 ti mes a day; Duration: 90 days 02/09/2024 Active Jardiance 10 MG 1 tablet Orally Once a day 024 Active traMADol HCl 50 MG 1 tablet as needed O rally Once a day Active Tamsulosin HCl 0.4 MG 1 capsule Orally O nce a day; Duration: 30 day(s) Active Flonase Allergy Relief 50 MCG/ACT 1 spray in each nostril Nasally Once a day 10/01/2022 Active Maximum D3 325 MCG (07734 UT) as directed Orally Active Metoprolol Succinate ER 100 MG 1 tablet Orally Once a day A ctive Diovan 80 MG 1 tab(s) orally 2 ti mes a day Active Problems Problem Type SNOMED Code ICD Code Onset Dates Problem Status W/U Status Risk Notes Problem Chronic systolic heart failure (340066372) 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) Active confirmed Problem Hypertensive heart failure (38491657) Hypertensive heart disease with heart failure (I11.0) Active confirmed Problem Body mass index 30+ - obesity (649737007) BMI 30.0-30.9,adult (Z68.30) Active confirmed Vital Signs Blood pressure systolic 120 mm Hg 08/04/19 25 Blood pressure diastolic 70 mm Hg 025 Heart Rate 61 /min 08/03/2024 Height 69.50 in 08/03/2024 Weight 207.2 lbs 08/03/2024 BMI 30.16 kg/m2 08/03/2024 Encounters Encounter Location Date Provider Diagnosis [facility] [address] [place] [id number] 08/03/2024 Luis Berkeley Essential hypertensi on, hypertension with unspecified goal I10 ; IFG (impaired fasting glucose) R73.01 ; Renal insufficiency N28.9 ; Vitamin D deficiency E55.9 ; Vitamin B12 deficiency E53.8 ; Heart failure with mildly reduced ejection fraction (HFmrEF) I50.22 ; Hyperlipidemia, unspecified hyperlipidemia type E78.5 ; Hypertensive heart disease with heart failure I11.0 and BMI 30.0-30.9,adult Z68.30 Assessments Encounter Date Diagnosis (ICD Code) Assessment Notes Treatment Notes Treatment Clinical Notes Section Notes 08/03/2024 Essential hypertension, hypertension with unspecified goal (ICD-10 - I10) 08/03/2024 IFG (impaired fasting glucose) (ICD-10 - R73.01) 08/03/2024 Renal insufficiency (ICD-10 - N28.9) 08/03/2024 Vitamin D deficiency (ICD-10 - E55.9) 08/03/2024 Vitamin B12 deficiency (ICD-10 - E53.8) 08/03/2024 Heart failure with mildly reduced ejection fraction (HFmrEF) (ICD-10 - I50.22) 08/03/2024 Hyperlipidemia, unspecified hyperlipidemia type (ICD-10 - E78.5) 08/03/2024 Hypertensive heart disease with heart failure (ICD-10 - I11.0) 08/03/2024 BMI 30.0-30.9,adult (ICD-10 - Z68.30) Plan Of Treatment Medication Medication Name Sig Start Date Stop Date Notes Jardiance 10 MG 1 tablet Orally Once a day 02/07/2024 Metoprolol Succinate ER 100 MG 1 tablet Orally Once a day Diovan 80 MG 1 tab(s) orally 2 ti mes a day Next Appt Details Follow Up: 6 Months, Reason: Provider Name:Luis Mitchell ry, 02/02/2025 09:30:00 AM, [address] [facility], [address] , [place], [place], [id number], Progress Notes * KAREN GREERDOB:1950 (74 yo M)Acc No.[id number]:08/03/2024 Progress Notes Patient: KAREN ARMAS Provider: Geena Swanson M.D. :1950 A ge:73 Y S ex:Male Date:08/03/2024 Address:[place] [place], [id number] Subjective: * Chief Complaints: * 1 . 6 months. * HPI: C ardiology: 73 year old male presents with c/o Blood Pressure Elevated P t here for 6 mo f/u on hypertension, states he is doing well and does not have any concerns. c/o Hyperlipidemia P t is not fasting today. * ROS: D ERMATOLOGY: no R cleopatra. [...] myopathy, Kidney stones, numerous, Vasovagal Near Syncope 11/2015, Congestive Heart Failure (HFmrEF) - EF 48% in 2022. * Surgical History: C ervical Fusion 2007, Back x 2 2008, Heart Attack, Stents x 3- [facility] 02/09/2010, Stents x 3 - Dr. Marc 02/03/2017, Infected Cyst/Spider Bite - [facility] 02/24/2022, RT Leg Lesion Removal 09/07/2022, 12/10 ans 01/12 [place] stones crushed 11/26/2022. * Hospitalization/Major Diagno stic Procedure: S troke 10/2005, Tachycardia, Dehydration, and Pneumonia , Low Blood Pressure- [facility] 06/18/2012, [facility] - Kidney Stone- [facility] 09/25/2016. * Family History: F [...] day , Taking Maximum D3 325 MCG (19227 UT) Capsule as directed Orally , Taking [...] tablet Orally Once a day , Taking Doxycycline Hyclate 100 MG Capsule 1 capsule Orally Twice a day , Medication List reviewed and reconciled with the patient * Allergies: P enicillin: Side Effects, Codeine, Lotrel, Zithromax Z-Jacinto: rash, Statins: Muscle weakness - Side Effects, Cefdinir: rash, diarrhea. Objective: * Vitals: W t: 207.2, Temp: 97.8, BP: 120/70, HR: 61, O2 Sat: 95% on RA, Nurse: rené, Ht: 69.50, BMI:30.16. * Examination: C ardiology: General Appearance: p leasant, NAD. H eart sounds: R RR. L ungs: c lear, no rales or wheezes. E xtremities: n o leg edema. ? Assessment: * Assessment: 1. E ssential hypertension, hypertension with unspecified goal - I10 (Primary) 2 . I FG (impaired fasting glucose) - R73.01 3 . R enal insufficiency - N28.9 4 . V itamin D deficiency - E55.9 5 . V itamin B12 deficiency - E53.8 6 . H eart failure with mildly reduced ejection fraction (HFmrEF) - I50.22 7 . H yperlipidemia, unspecified hyperlipidemia type - E78.5 ?8. H ypertensive heart disease with heart failure - I11.0 9 . B MT 30.0-30.9,adult - Z68.30 Plan: * Treatment: Value Reference Range B UN 29 H 8-23 - mg/dL * C alcium 10.1 8.6-10.4 - mg/dL * C hloride 102 97-108 - mmol/L * C O2 27 22-32 - mmol/L * C reatinine 1.71 H 0.70-1.30 - mg/dL * G lucose 139 H 65-99 - mg/dL * P otassium 5.0 3.5-5.3 - mmol/L * S odium 142 135-145 - mmol/L * e GFR by Creatinine 42 L >59 - mL/min/1.73m2 * Yvonne Winkler 08/04/2024 01: 09:35 PM > see TE 2.?IFG (impaired fasting glucose)?LAB: P-Basic Metabolic Panel (BMP) (Collection Date & Time - 08/03/2024 08:36 AM)?glu 139, BUN 29, creat 1.71, eGFR 42* Value Reference Range B UN 29 H 8-23 - mg/dL * C alcium 10.1 8.6-10.4 - mg/dL * C hloride 102 97-108 - mmol/L * C O2 27 22-32 - mmol/L * C reatinine 1.71 H 0.70-1.30 - mg/dL * G lucose 139 H 65-99 - mg/dL * P otassium 5.0 3.5-5.3 - mmol/L * S odium 142 135-145 - mmol/L * e GFR by Creatinine 42 L >59 - mL/min/1.73m2 * Yvonne Winkler 08/04/2024 01: 09:35 PM > see TE ?LAB: P-Hemoglobin A1C (Collection Date & Time - 08/03/2024 08:36 AM)?6.1* Value Reference Range H emoglobin A1C 6.1 H <5.7 - % * Yvonne Winkler 08/04/2024 01: 09:35 PM > see TE 3.?Renal insufficiency?LAB: P-Basic Metabolic Panel (BMP) (Collection Date & Time - 08/03/2024 08:36 AM)?glu 139, BUN 29, creat 1.71, eGFR 42* Value Reference Range B UN 29 H 8-23 - mg/dL * C alcium 10.1 8.6-10.4 - mg/dL * C hloride 102 97-108 - mmol/L * C O2 27 22-32 - mmol/L * C reatinine 1.71 H 0.70-1.30 - mg/dL * G lucose 139 H 65-99 - mg/dL * P otassium 5.0 3.5-5.3 - mmol/L * S odium 142 135-145 - mmol/L * e GFR by Creatinine 42 L >59 - mL/min/1.73m2 * Yvonne Winkler 08/04/2024 01: 09:35 PM > see TE 4.?Vitamin D deficiency?LAB: P-Vitamin D 25-Hydroxy (Collection Date & Time - 08/03/2024 08:36 AM)? Normal* Value Reference Range V itamin D 25-Hydroxy 78.7 30.0-100.0 - ng/mL * Yvonne Winkler 08/04/2024 01: 09:35 PM > see TE 5.?Vitamin B12 deficiency?LAB: P-Vitamin B12 (Collection Date & Time - 08/03/2024 08:36 AM)?Normal* Value Reference Range V itamin B12 2080 279-3036 - pg/mL * Yvonne Winkler 08/04/2024 01: 09:35 PM > see TE 6.?Heart failure with mildly reduced ejection fraction (HFmrEF)? Continue Jardiance Tablet, 10 MG, 1 tablet, Orally, Once a day.?? * Labs: * L ab: Estimated Average Glucose (Collection Date & Time - 08/03/2024 08:36 AM) N ormal Value Reference Range E stimated Average Glucose 128 - mg/dL * [facility], support 08/04/2024 06:10:06 : This order was created by the Interface. Yvonne Wnikler 08/04/2024 01:09:35 PM > see TE * Procedure Codes: G 2211 Complex e/m visit add on, 3074F SYST BP LT 130 MM HG, 3078F DIAST BP < 80 MM HG * Follow Up: 6 Months * Images: Billing Information: * Visit Code: 88795 Office Visit, Est Pt., Level 4. * Procedure Codes: G2211 Complex e/m visit add on. 3074F SYST BP LT 130 MM HG. 3078F DIAST BP < 80 MM HG. * Electronic signature of Fransisca Swanson MD on 11/01/2024 at 03:21 PM EDT Sign off status: Pending * Provider: Geena Swanson M.D. Date: 0 08/03/2024 Generated for Quinn toth/Blaise/Shirleyitting on: 0 11/01/2024 03:21 PM EDT History and Physical Notes * HPI (History of Present Illness) Category Sub-Category Detail Notes Category Not es Cardiology Blood Pressure Elevated Pt here for 6 mo f/u on hypertension, states he is doing well and does not have any concerns Hyperlipidemia Pt is not fasting to day Examination Category Sub-Category Detail Notes Category Not es Cardiology Lungs: clear, no rales or wheezes Heart sounds: RRR Extremities: no leg edema General Appearance: pleasant, NAD
--- OUTSIDE RECORDS SUMMARY | 2024-11-01 15:21 | XMS_ITS | Clinical Summary ---
Author Organization [facility] Address [address] [place] [address] Phone Care Team Providers Care Hull Molder Name Role Phone Luis Swanson MD Primary Care Provider [phone] Allergies Active Allergy Reactions Criticality Noted Date Comments Morphine Nausea And Vomiting 10/05/2011 Penicillins 10/05/2011 Sulfa (Sulfonamide Antibiotics) Nausea And Vomiting 10/05/2011 Azithromycin Other (See Comments) 10/05/2011 Eyes swell Medications clopidogrel (PLAVIX) 75 mg tablet Take by mouth daily. Active metoprolol succinate ER (TOPROL-XL) 100 mg XL tablet Take 100 mg by mouth daily. Active aspirin 325 mg Take 325 mg by mouth daily. Active valsartan (DIOVAN) 160 mg tablet Take 160 mg by mouth daily. Active gabapentin (NEURONTIN) 100 mg capsule Take by mouth 3 times daily. Active albuterol (PROVENTIL HFA; VENTOLIN HFA) INHALER Inhale 2 Puffs into the lungs every 4 hours and prn. 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 Hypertension [place] (myocardial infarction) (HCC) Family History Medical History Relation Name Comments Cancer Brother Diabetes Mother Relation Name Status Comments Brother Mother Social History Tobacco Use Types Packs/Day Years Used Date Smoking Tobacco: Former Cigarettes Q uit: 04/26/1964 Pipe Smokeless Tobacco: Former Chew Alcohol Use Standard Drinks/Week Comments No 0 (1 standard drink = 0.6 oz pur e alcohol) Sex and Gender Information Value Date Recorded Sex Assigned at Not on file Legal Sex Male 4:24 AM EDT Gender Identity Not on file Sexual Orientation Not on file Obstetrics History Last Filed Vital Signs Vital Sign Reading Time Taken Comments Blood Pressure 168/97 03/15/2019 12:00 PM EST Pulse 78 03/15/2019 12:00 PM EST Temperature 36.7 C (98 F) 03/15/2019 12:00 PM EST Respiratory Rate 20 03/15/2019 12:00 PM EST Oxygen Saturation 99% 03/15/2019 12:00 PM EST Inhaled Oxygen Concentration - - Weight 95.3 kg (210 lb) 03/15/2019 12:00 PM EST Height 177.8 cm (5' 10 ) 03/15/2019 12:00 PM EST Body Mass Index 30.13 03/15/2019 12:00 PM EST Plan of Treatment Health Maintenance Due Date Last Done Comments Annual Wellness Exam 1953 Hepatitis C Screening 1968 DTaP/TDaP/Td (1 - Tdap) 1969 Cologuard 08/25/1995 Colon Cancer Screening 08/25/1995 Colonoscopy 08/25/1995 FIT 08/25/1995 Sigmoidoscopy 08/25/1995 Virtual Colonography 08/25/1995 Pneumococcal Vaccine 50+ (1 of 1 - PCV) 2000 Zoster (1 of 2) 2000 COVID-19 Vaccine ( - 2023-2 5 season) 2023 Influenza Vaccine (#1) 2024 Hepatitis B Vaccine Aged Out No longe r eligible based on patient's age to complete this topic Meningococcal B Vaccine Aged Out No l onger eligible based on patient's age to complete this topic [place] [address] [place] MEDIC[place] PART A HB on file ANTH PPO [facility] 3RD FLOOR ATTN: [employer] [place] [address] [employer] Member Subscriber Plan / Payer (Ef fective 2019-Present) Name:Traci Greer Member ID:[id number] Relation to Subscriber:Self Name:Traci Greer Subscriber ID:[id number] Payer ID:Not on file Type:Not on file Address: [place] [address] Care Teams Hull Molder Relationship Specialty Start Date End Date Luis Swanson MD [address] [place] [id number] PCP - General Family Medicine 11/30/15
--- OUTSIDE RECORDS SUMMARY | 2024-11-01 15:21 | XMS_ITS | Clinical Summary ---
Author Organization [facility] [address] Care Team Providers Care Staff Pharmacist Hospital Name Role Phone Unavailable Primary Care Provider Unavailabl e Social History Tobacco Use Types Packs/Day Years Used Date Smoking Tobacco: Never Assessed Sex and Gender Information Value Date Recorded Sex Assigned at Not on file Legal Sex Male 7:34 PM EDT Gender Identity Not on file Sexual Orientation Not on file Last Filed Vital Signs Vital Sign Reading Time Taken Comments Blood Pressure 176/98 10/30/2022 8:50 AM EDT Pulse 73 10/30/2022 8:50 AM EDT Temperature - - Respiratory Rate - - Oxygen Saturation - - Inhaled Oxygen Concentration - - Weight 94.8 kg (209 lb) 10/30/2022 8:50 AM EDT Height 177.8 cm (5' 10 ) 10/30/2022 8:50 AM EDT Body Mass Index 29.99 10/30/2022 8:50 AM EDT Plan of Treatment Health Maintenance Due Date Last Done Comments [facility]-Depression Screening 1950 [facility]-Hepatitis C Screening 1950 [facility]-Medicare Annual Wellness (AWV) 1950 [facility]-/Child/Adol SDOH Screenings 1950 [facility]-Obesity Intervention 1956 [facility]- SDOH Screenings 1968 [facility]-Adult SDOH Screenings 1968 CT Colonography 08/25/1995 Colonoscopy 08/25/1995 FIT-DNA 08/25/1995 FIT 08/25/1995 FOBT 08/25/1995 Sigmoidoscopy 08/25/1995 [facility]-Colorectal Cancer Screening 08/25/1995 [facility]-DTaP,Tdap,and Td Vaccines (1 - Tdap) 06/29/1996 06/28/1996 [facility]-Zoster Vaccines (1 of 2) 2000 [id number] Vaccine ( - season) 2023 03/12/2021, 07/03/2020, 06/05/2020 [facility]-Influenza Vaccine (#1) 12/25/202403/12, 02/20/2019, 04/12/2018, Additional history exists [facility]-RSV Vaccine: 60+ Years or (1 - 1-dose 75+ series) 2025 [facility]-Pneumococcal Vaccine: 50+ Years Completed 05/11/2022, 02/20/2019 HPV Vaccines Aged Out No longer eligi ble based on patient's age to complete this topic [facility]-HIB Vaccines Aged Out No longer e ligible based on patient's age to complete this topic [facility]-Hepatitis A Vaccines Aged Out No longer eligible based on patient's age to complete this topic [facility]-IPV Vaccines Aged Out No longer e ligible based on patient's age to complete this topic [facility]-Rotavirus Vaccines Aged Out No lo nger eligible based on patient's age to complete this topic Insurance [facility] [employer]
--- OUTSIDE RECORDS SUMMARY | 2024-11-01 15:22 | XMS_ITS | Patient Health Record ---
Author Organization [facility] Address [address] [facility] [address] [place] [id number] Care Team Providers Care Addiction Counselor Name Role Phone Luis Swanson Primary Care Provider [phone] Leigha Weiner Unavailable [phone] Allergies Allergen (clinical drug ingredient) Drug/Non Drug Allergy documented on EMR Reaction Allergy Type Onset Date Status amlodipine / benazepril Lotrel Unknown Drug Allergy Active azithromycin Zithromax Z-Jacinto rash Drug Allergy Active cefdinir Cefdinir rash, diarrhea Drug Allergy Ac tive codeine Codeine Unknown Drug Allergy Active Penicillin Unknown Drug Allergy Active Substance with 5-bpzttmp-7-methylgl utaryl-coenzyme A reductase inhibitor mechanism of action [...] - 38 plat 219 100 - 400 P-Vitamin B12 Reviewed date:08/04/2024 01:09:41 PM Interpretation: Normal Performing Lab: Notes/Report: Test performed by [facility], [employer] [facility] , [address], [place] [address] Franky Alex MD, Jet Worker CLIA: [id number] Vitamin B12 0792 264-5676 pg/mL P-Basic Metabolic Panel (BMP ) Reviewed date:08/04/2024 01:09:41 PM Interpretation:glu 139, BUN 29, creat 1.71, eGFR 42 Performing Lab: Notes/Report: Test performed by [facility] [address] [place] [address] , [place] [address] Franky Alex MD, Jet Worker CLIA: [id number] Sodium 142 135-145 mmol/L Potassium 5.0 3.5-5.3 mmol/L Chloride 102 97-108 mmol/L CO2 27 22-32 mmol/L Glucose 139 65-99 mg/dL BUN 29 8-23 mg/dL Creatinine 1.71 0.70-1.30 mg/dL Calcium 10.1 8.6-10.4 mg/dL eGFR by Creatinine 42 >59 mL/min/1.73m2 P-Hemoglobin A1C Reviewed date:08/04/2024 01:09:41 PM Interpretation:6.1 Performing Lab: Notes/Report: Test performed by [facility] [address] [place] [address] , [place] [address] Franky Alex MD, Jet Worker CLIA: [id number] Hemoglobin A1C 6.1 <5.7 % The following HbA1c ranges recommended by the [place] [employer] (ADA) may be used as an aid in the diagnosis of diabetes mellitus. HbA1c Suggested Diagnosis >=6.5% Diabetic 5.7% - 6.4% Pre-Diabetic <5.7% Non-Diabetic P-Vitamin D 25-Hydroxy Reviewed date:08/04/2024 01:09:41 PM Interpretation: Normal Performing Lab: Notes/Report: Test performed by [facility] [address] [place] [address] , [place] [address] Franky Alex MD, Jet Worker CLIA: [id number] Vitamin D 25-Hydroxy 78.7 30.0-100.0 ng/mL Interpretation of Vitamin D 25 OH: < 20 ng/mL - Deficiency 20 - 29 ng/mL - Insufficiency 30 - 100 ng/mL - Sufficiency > 100 ng/mL - Super-therapeutic- toxicity may occur above this level. Clinical correlation required. Estimated Average Glucose Reviewed date:08/04/2024 01:09:41 PM Interpretation: Normal Performing Lab: Notes/Report: Test performed by [facility] [address] [place] [address] [address], [place] [address] Franky Alex MD, Jet Worker CLIA: [id number] Estimated Average Glucose (eAG) 128 Estimated Average Glucose (eAG) is calculated using the equation eAG = (28.7 x HbA1c) - 46.7 based on the guidelines established by the ADA. If the patient has certain diseases including kidney disease, sickle cell anemia, thalassemia, or is taking medications such as dapsone, erythropoietin, or iron, eAG should not be evaluated. CBC Fingerstick (in house) Reviewed date:11/12/2023 03:05:19 PM Interpretation: Performing Lab: Notes/Report: wbc 9.1 3.5 - 10 lym 17.2% 15 - 50 mid 4.9% 2 - 15 gran 77.9% 35 - 80 rbc 5.67 3.5 - 5.5 hgb 18.1 11.5 - 16.5 hct 56.4 35 - 55 mcv 99.4 75 - 100 mch 31.9 25 - 35 mchc 32.1 31 - 38 plat 245 100 - 400 CBC Fingerstick (in house) Reviewed date:06/07/2024 07:23:58 PM Interpretation: Performing Lab: Notes/Report: wbc 10.0 3.5 - 10 lym 19.6% 15 - 50 mid 4.6% 2 - 15 gran 75.8% 35 - 80 rbc 5.47 3.5 - 5.5 hgb 17.7 11.5 - 16.5 hct 53.1 35 - 55 mcv 97.0 75 - 100 mch 32.4 25 - 35 mchc 33.4 31 - 38 plat 192 100 - 400 P-PSA Reviewed date:02/07/2024 11:17:23 AM Interpretation:Normal Performing Lab: Notes/Report: Test performed by [facility] [address] [place] [address] [address], [place] [address] Franky Alex MD, Jet Worker CLIA: [id number] PSA 1.41 <4.00 ng/mL Please note this is an ultrasensitive PSA assay with a lower limit of detection of 0.014 ng/mL. This test is performed by the Rodriguez ECLIA methodology. Values obtained with different assay methods or kits cannot be directly compared. P-TSH reflex to FT4 Reviewed date:02/07/2024 11:17:23 AM Interpretation:Normal Performing Lab: Notes/Report: Test performed by [facility] [address] [place] [address] , [place] [address] Franky Alex MD, Jet Worker CLIA: [id number] TSH reflex to FT4 2.55 0.43-5.25 mU/L P-Microalbumin/Creatinine, R andom Urine Sample Reviewed date:02/07/2024 11:16:25 AM Interpretation: Performing Lab: Notes/Report: P-Vitamin D 25-Hydroxy Reviewed date:02/07/2024 11:17:23 AM Interpretation:Normal Performing Lab: Notes/Report: Test performed by [facility] [address] , [place] [address] Franky Alex MD, Jet Worker CLIA: [id number] Vitamin D 25-Hydroxy 75.2 30.0-100.0 ng/mL Interpretation of Vitamin D 25 [place]: < 20 ng/mL - Deficiency 20 - 29 ng/mL - Insufficiency 30 - 100 ng/mL - Sufficiency > 100 ng/mL - Super-therapeutic- toxicity may occur above this level. Clinical correlation required. P-Microalbumin/Creatinine, R andom Urine Sample Reviewed date:02/07/2024 11:17:23 AM Interpretation:Normal Performing Lab: Notes/Report: Test performed by [employer] [facility] [facility] [address] , [place] [address] Franky Alex MD, Jet Worker CLIA: [id number] Albumin/Creatinine Ratio, Urine 9 0-30 ug/m g Microalbumin, Urine, Random 1.9 Creatinine, Urine 202.4 CBC Fingerstick (in house) Reviewed date:03/22/2024 04:52:33 PM Interpretation: Performing Lab: Notes/Report: wbc 12.7 3.5 - 10 lym 13.5% 15 - 50 mid 17.8% 2 - 15 gran 68.7% 35 - 80 rbc 6.03 3.5 - 5.5 hgb 19.1 11.5 - 16.5 hct 60.7 35 - 55 mcv 100.5 75 - 100 mch 31.7 25 - 35 mchc 31.6 31 - 38 plat 244 100 - 400 CBC Fingerstick (in house) Reviewed date:01/06/2024 11:35:58 PM Interpretation: Performing Lab: Notes/Report: wbc 10.0 3.5 - 10 lym 17.7 15 - 50 mid 4.8 2 - 15 gran 77.5 35 - 80 rbc 5.64 3.5 - 5.5 hgb 18.1 11.5 - 16.5 hct 56.2 35 - 55 mcv 99.6 75 - 100 mch 32.2 25 - 35 mchc 32.3 31 - 38 plat 248 100 - 400 P-Lipid Panel Reviewed date:02/07/2024 11:17:23 AM Interpretation:trigs 150 Performing Lab: Notes/Report: Test performed by [employer], [employer] [address] [place] [address] , [place] [address] Franky Alex MD, Jet Worker CLIA: [id number] Cholesterol 152 <200 mg/dL Triglycerides 150 <150 mg/dL HDL Cholesterol 46 >39 mg/dL Cholesterol / HDL Ratio 3.30 0.00-4.99 Ratio Non-HDL Cholesterol 106 <130 mg/dL LDL Cholesterol (Calculation) 76 <130 mg/dL LDL Cholesterol Levels* Less than 100 mg/dL Optimal 100 to 129 mg/dL Near Optimal/ Above Optimal 130 to 159 mg/dL Borderline High 160 to 189 mg/dL High 190 mg/dL and above Very High * Categories as recommended by the 2004 ATPIII guidelines LDL/HDL Ratio 1.7 <3.3 Ratio LDL Cholesterol Patient History Test Date: 02/03/2024 LDL Results: 76 Units: mg/dL % Change: - P-Comprehensive Metabolic Pa francisca (CMP) Reviewed date:02/07/2024 11:17:23 AM Interpretation:gluc 121, Cr 1.53, gfr 48 Performing Lab: Notes/Report: Test performed by [facility] [address] [place], [place] [address] [place] , [address], [place] [address] Franky Alex MD, Jet Worker CLIA: [id number] Sodium 142 135-145 mmol/L Potassium 5.1 3.5-5.3 mmol/L Chloride 102 97-108 mmol/L CO2 29 22-32 mmol/L Glucose 121 65-99 mg/dL BUN 22 8-23 mg/dL Creatinine 1.53 0.70-1.30 mg/dL Calcium 9.6 8.6-10.4 mg/dL eGFR by Creatinine 48 >59 mL/min/1.73m2 Protein 7.0 6.0-8.3 g/dL Albumin 4.6 3.5-5.3 g/dL Alkaline Phosphatase 103 40-129 IU/L ALT (SGPT) 17 <5-55 IU/L AST (SGOT) 18 <5-46 IU/L Bilirubin, Total 0.8 <0.2-1.2 mg/dL A/G Ratio 1.9 1.1-2.5 P-Vitamin B12 Reviewed date:02/07/2024 11:17:23 AM Interpretation:Normal Performing Lab: Notes/Report: Test performed by [facility] [address] [place] [address] , [address], [place] [address] Franky Alex MD, Jet Worker CLIA: [id number] Vitamin B12 0571 215-6071 pg/mL Glycohemoglobin A1c (in hous e) Reviewed date:02/07/2024 11:17:23 AM Interpretation:6.1% Performing Lab: Notes/Report: 6.1% glycohemoglobin 6.1% 5 - 6.5 % Glucose (In-House) Reviewed date:02/07/2024 11:17:23 AM Interpretation:137 Performing Lab: Notes/Report: 137 blood glucose 137 74 - 106 mg/dL CBC Fingerstick (in house) Reviewed date:01/12/2024 03:41:00 PM Interpretation: Performing Lab: Notes/Report: wbc 9.3 3.5 - 10 lym 17.0% 15 - 50 mid 4.7% 2 - 15 gran 78.3% 35 - 80 rbc 5.60 3.5 - 5.5 hgb 17.1 11.5 - 16.5 hct 55.1 35 - 55 mcv 98.3 75 - 100 mch 31.6 25 - 35 mchc 32.1 31 - 38 plat 251 100 - 400 Medications Medication SIG (Take, Route, Frequency, Duration) Notes Start Date End Date Status Jardiance 10 MG 1 tablet Orally Once a day 024 Active traMADol HCl 50 MG 1 tablet as needed O rally Once a day Active Doxycycline Hyclate 100 MG 1 capsule Orally Twice a day; Duration: 5 day(s) 07/03/2024 Active Tamsulosin HCl 0.4 MG 1 capsule Orally O nce a day; Duration: 30 day(s) Active B-12 1000 MCG 1 tab(s) orally once a day Active Diovan 80 MG 1 tab(s) orally 2 ti mes a day; Duration: 90 days Active Clopidogrel Bisulfate 75 MG TAKE 1 TABLET BY MOUTH ONCE DAILY; Duration: 30 Active Flonase Allergy Relief 50 MCG/ACT 1 spray in each nostril Nasally Once a day 10/01/2022 Active Gabapentin 300 MG 1 cap(s) orally 2 ti mes a day; Duration: 90 days 09/04/2024 Active Maximum D3 325 MCG (00125 UT) as directed Orally Active Repatha SureClick 140 mg/mL INJECT 140MG SUBCUTANEOUSLY EVERY 2 WEEKS DIRECTED; Duration: 84 Active Metoprolol Succinate ER 100 MG 1 tablet Orally Once a day; Duration: 90 days Active Immunizations Vaccine Route Administration Date Status Comme nts xFluzone Intradermal (18-64yrs)-trivalent ID Intradermal 02/09/2013 Administered xFluzone High Dose-private (65yr&older) IM Intramuscular 03/07/2012 Administered xFlu shot-36 months and older IM Intramuscular 03/21/2005 Administered xFlu shot-36 months and older IM Intramuscular 02/24/2006 Administered Prevnar (PCV20) IM Intramuscular 05/11/2022 Administered Prevnar (PCV13) Unknown 02/20/2019 Administered Fluzone High Dose (65yr and older) IM Intramuscular 02/15/2017 Administered Fluzone High Dose (65yr and older) IM Intramuscular 04/12/2018 Administered Fluzone High Dose (65yr and older) IM Intramuscular 03/12/2021 Administered Fluzone High Dose (65yr and older) IM Intramuscular 03/24/2022 Administered Fluzone High Dose (65yr and older) IM Intramuscular 01/20/2023 Administered Fluzone High Dose (65yr and older) IM Intramuscular 02/03/2024 Administered DT, 7 YEARS OR OLDER Unknown 06/28/1996 Administered DT, 7 YEARS OR OLDER Unknown 06/28/1996 Administered COVID 19 Moderna Unknown 06/05/2020 Administered COVID 19 Moderna Unknown 07/03/2020 Administered COVID 19 Moderna Unknown 03/12/2021 Administered Problems Problem Type SNOMED Code ICD Code Onset Dates Problem Status W/U Status Risk Notes Problem Vitamin B12 deficiency (492294716) Vitamin B12 deficiency (266.2) Active confirmed Problem Vitamin D deficiency (19476154) Vitamin D deficiency (E55.9) Active confirmed Problem Vitamin B12 deficiency (286015846) Vitamin B12 deficiency (E53.8) Active confirmed Problem History of cerebrovascular accident without residual deficits (466562875) History of CVA (cerebrovascular accident) (Z86.73) Active confirmed Problem Body mass index 30+ - obesity (662012058) BMI 30.0-30.9,adult (Z68.30) Active confirmed Problem Sciatica (51762375) Lumbago with sciatica, right side (M54.41) Active confirmed Problem Primary insomnia (1760483) Primary insomnia (F51.01) Active confirmed Problem Hypertensive heart failure (84451664) Hypertensive heart disease with heart failure (I11.0) Active confirmed Problem Sciatica (03973576) Lumbago with sciatica, left side (M54.42) Active confirmed Problem Degeneration of lumbar intervertebral disc (53980751) Lumbar degenerative disc disease (M51.36) Active confirmed Problem Kidney stone (47286300) Kidney stones (N20.0) Active confirmed Problem Hyperlipidaemia (21112503) Hyperlipidemia, unspecified hyperlipidemia type (E78.5) Active confirmed Problem Heart failure (39636436) Congestive heart failure, unspecified congestive heart failure chronicity, unspecified congestive heart failure type (I50.9) Active confirmed Problem Essential hypertension (39883375) Essential hypertension, hypertension with unspecified goal (I10) Active confirmed Problem Acute sinusitis (69080861) Acute non-recurrent sinusitis, unspecified location (J01.90) Active confirmed Problem Sciatica (66758104) Acute right- sided low back pain with right-sided sciatica (M54.41) Active confirmed Problem Impaired fasting glycaemia (649659713) IFG (impaired fasting glucose) (R73.01) Active confirmed Problem Atherosclerotic hear t disease of [place] coronary artery without angina pectoris (987066172575620) Atherosclerosis of [place] coronary artery without angina pectoris, unspecified whether [place] or transplanted heart (I25.10) Active confirmed Problem Chronic rhinitis (04390273) Rhinitis, unspecified type (J31.0) Active confirmed Problem Pure hypercholesterolemia (749053505) Pure hypercholesterolemia (E78.00) Active confirmed Problem Kidney stone (54106931) Bilateral nephrolithiasis (N20.0) Active confirmed Problem Hydronephrosis w ith urinary obstruction due to renal calculus (N13.2) Active confirmed Problem Lumbar spondylosis (507305194) Lumbar spondylosis (M47.816) Active confirmed Problem Seasonal allergic rhinitis (387890985) Seasonal allergic rhinitis, unspecified trigger (J30.2) Active confirmed Problem Kidney stone (89252240) Renal calculus, bilateral (N20.0) Active confirmed Problem Chronic systolic heart failure (508476928) 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) Active confirmed Vital Signs Heart Rate 61 /min 08/03/2024 Blood pressure diastolic 70 mm Hg 08/03/2024 Height 69.50 in 08/03/2024 Blood pressure systolic 120 mm Hg 08/03/2024 Weight 207.2 lbs 08/03/2024 BMI 30.16 kg/m2 08/03/2024 Encounters Encounter Location Date Provider Diagnosis [facility] [address] [place] [id number] 11/12/2023 Luis Lyons Acute URI J06.9 [facility] [address] [place], [place] [id number] 01/06/2024 Leigha Crowjed Acute non-recurrent maxillary sinusitis J01.00 ; Pain in gums K06.8 and Broken teeth S02.5XXA [facility] [address] [place] [id number] 01/12/2024 Luis Lyons Acute non-recurrent maxillary sinusitis J01.00 [facility] [address] [place] [id number] 02/03/2024 Luis Lyons Essential hypertensi on, hypertension with unspecified goal I10 ; Hyperlipidemia, unspecified hyperlipidemia type E78.5 ; IFG (impaired fasting glucose) R73.01 ; Vitamin B12 deficiency E53.8 ; Vitamin D deficiency E55.9 ; Prostate cancer screening Z12.5 and Encounter for immunization Z23 [facility] [address] [place] [id number] 02/04/2024 Luis Lyons Essential hypertensi on, hypertension with unspecified goal I10 [facility] [address] [place] [id number] 03/22/2024 Leigha Crowdy Acute non-recurrent maxillary sinusitis J01.00 ; Pain in gums K06.8 and Acute URI J06.9 [facility] [address] [place] [id number] 06/07/2024 Luis Lyons Acute maxillary sinusitis, recurrence not specified J01.00 [facility] [address] [place] [id number] 06/28/2024 Luis Lyons Sebaceous cyst L72.3 and Local infection of the skin and subcutaneous tissue, unspecified L08.9 [facility] [address] [place] [id number] 06/30/2024 Luis Lyons Visit for wound chec k Z51.89 [facility] [address] [place], [place] [id number] 07/03/2024 Luis Lyons Acute URI J06.9 [facility] [address] [place], [place] [id number] 08/03/2024 Luis Lyons Essential hypertensi on, hypertension with unspecified goal I10 ; IFG (impaired fasting glucose) R73.01 ; Renal insufficiency N28.9 ; Vitamin D deficiency E55.9 ; Vitamin B12 deficiency E53.8 ; Heart failure with mildly reduced ejection fraction (HFmrEF) I50.22 ; Hyperlipidemia, unspecified hyperlipidemia type E78.5 ; Hypertensive heart disease with heart failure I11.0 and BMI 30.0-30.9,adult Z68.30 [facility] [address] [place], [place] [id number] 02/07/2024 Luis Lyons [facility] [address] [place], [place] [id number] 02/08/2024 Luis Lyons Lumbago with sciatic a, left side M54.42 [facility] [address] [place], [place] [id number] 03/24/2024 Leigha Crowdy [facility] [address] [place], [place] [id number] 04/27/2024 Luis Lyons [facility] [address] [place], [place] [id number] 06/07/2024 Luis Lyons [facility] [address] [place], [place] [id number] 07/10/2024 Luis Lyons [facility] [address] [place] [id number] 08/04/2024 Luis Lyons [facility] [address] [place] [id number] 08/22/2024 Luis Lyons [facility] [address] [place], [place] [id number] 09/04/2024 Luis Lyons Lumbago with sciatic a, left side M54.42 Assessments Encounter Date Diagnosis (ICD Code) Assessment Notes Treatment Notes Treatment Clinical Notes Section Notes 01/12/2024 Acute non-recurrent maxillary sinusitis (ICD-10 - J01.00) Slowly improving 02/03/2024 Hyperlipidemia, unspecified hyperlipidemia type (ICD-10 - E78.5) 02/03/2024 Essential hypertension, hypertension with unspecified goal (ICD-10 - I10) 11/12/2023 Acute URI (ICD-10 - J06.9) Patient seems to have an early sinusitis vs. allergic rhinitis 01/06/2024 Pain in gums (ICD-10 - K06.8) 01/06/2024 Acute non-recurrent maxillary sinusitis (ICD-10 - J01.00) Will cover with abx for sinusitis as well as possible dental abscess. He is going to call and make an appt with his dentist when he leaves the office. He has allergies to PCN, cephalosporin s, and zithromax. Discussed with Dr. Beauchamp and will cover with clindamycin. 03/22/2024 Pain in gums (ICD-10 - K06.8) 03/22/2024 Acute non-recurrent maxillary sinusitis (ICD-10 - J01.00) Will cover for sinus infection as well as dental problems as well. He is going to call the dentist to evaluate the gum pain. 06/07/2024 Acute maxillary sinusitis, recurrence not specified (ICD-10 - J01.00) 06/28/2024 Sebaceous cyst (ICD-10 - L72.3) 06/28/2024 Local infection of the skin and subcutaneous tissue, unspecified (ICD-10 - L08.9) 06/30/2024 Visit for wound check (ICD-10 - Z51.89) Iodoform gauze removed without difficulty, band aid placed over wound 07/03/2024 Acute URI (ICD-10 - J06.9) 02/08/2024 Lumbago with sciatica, left side (ICD-10 - M54.42) 08/03/2024 Essential hypertension, hypertension with unspecified goal (ICD-10 - I10) 08/03/2024 IFG (impaired fasting glucose) (ICD-10 - R73.01) 09/04/2024 Lumbago with sciatica, left side (ICD-10 - M54.42) 08/03/2024 Renal insufficiency (ICD-10 - N28.9) 03/22/2024 Acute URI (ICD-10 - J06.9) HGB was elevated today. Will recheck a CBC when he is feeling better. 01/06/2024 Broken teeth (ICD-10 - S02.5XXA) 02/03/2024 IFG (impaired fasting glucose) (ICD-10 - R73.01) 02/04/2024 Essential hypertension, hypertension with unspecified goal (ICD-10 - I10) 02/03/2024 Vitamin B12 deficiency (ICD-10 - E53.8) 08/03/2024 Vitamin D deficiency (ICD-10 - E55.9) 08/03/2024 Vitamin B12 deficiency (ICD-10 - E53.8) 02/03/2024 Vitamin D deficiency (ICD-10 - E55.9) 02/03/2024 Prostate cancer screening (ICD-10 - Z12.5) 08/03/2024 Heart failure with mildly reduced ejection fraction (HFmrEF) (ICD-10 - I50.22) 02/03/2024 Encounter for immunization (ICD-10 - Z23) 08/03/2024 Hyperlipidemia, unspecified hyperlipidemia type (ICD-10 - E78.5) 08/03/2024 Hypertensive heart disease with heart failure (ICD-10 - I11.0) 08/03/2024 BMI 30.0-30.9,adult (ICD-10 - Z68.30) Plan Of Treatment Next Appt Details Provider Name:Luis Mitchell ry, 02/02/2025 09:30:00 AM, [address], [address], [place], [place], [id number], Insurance Providers Payer Name Payer Address Payer Phone Subscriber Number Group Number Insured Name Patient Relationship to Insured Coverage Start Date Coverage End Date [employer] (MEDICAR E) [address] [address] [place] [phone] [id number] KAREN GREER Self - patient is the insured Medical (General) History Medical History History ICD Code Hypertension Ischemic Stroke Allergic Rhinitis Lumbar Disc Disease Cervical Disc Disease Coronary Artery Disease Myocardial Infarction, 01/2010 non STEMI - Feb 02, 2017 - 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 2009 Stents x 3 - Dr. Marc 02/03/2017 Infected Cyst/Spider Bite - [facility] 02/24/2022 RT Leg Lesion Removal 09/07/202212/10 ans 01/12 [place] stones crushed 0 11/26/2022 Hospitalization History Reason Date(Month/Year) Tachycardia, Dehydration, and Pneumonia Stroke 10/2005 [facility] ER - Kidney Stone- [facility] ER 09/25/2016 Low Blood Pressure- [facility] ER 06/18/2012
--- NOTE | 2024-11-01 15:27 | EXP.PAIN.SOA ---
[facility] Disclaimer: The information contained in this section may have been updated after the patient was seen, as this information can be updated by other users. Medical History (Updated 11/01/24 @ 16:02 by Keysha Gibbons APRN) Spinal stenosis, lumbar region with neurogenic claudication Degenerative disc disease, lumbar Lumbar radiculopathy H/O penicillin-type antibiotic allergy Bilateral leg pain History of CVA (cerebrovascular accident) Influenza-like illness Lumbar back sprain Sinusitis Bronchitis Infected sebaceous cyst of skin Hydronephrosis Cervical sprain Lumbar post-laminectomy syndrome Stroke Abscess, dental LV dysfunction Encounter for pre-operative cardiovascular clearance Obesity Hyperlipidemia Hypertensive heart disease without heart failure Coronary arteriosclerosis Family History Other No significant family history Social History Smoking Status: Former smoker alcohol intake: never substance use type: denies use current occupational status: other Travel in the last 8 weeks?: None PM Subjective & Objective Subjective Subjective:: Patient is a pleasant 74-year-old male who presents today for follow-up of bilateral SI injection on 10/10/2024. Today he rates his pain a 7 out of 10. He states patient is complaining more of lower leg symptoms today. He does state the pain is going all the way down to his ankles and is worse when he is up walking moving. Patient states that the injection while it was nice and numb he had no issues whatsoever however as soon as the numbing medication wore back off he felt like his pain had returned. Patient is complaining that the pain is just when he is up and no longer an issue while he is in prolonged seating or laying positions. He does state that pain is interfering with his ability perform activities of daily living such as cooking and cleaning. Patient is currently managed with tramadol 50 mg at bedtime and methocarbamol 500 mg 3 times daily from our office. He denies any side effects. He does state that the muscle relaxer did seem to help. His Aly has been reviewed and is appropriate. Review of Systems: General: No recent weight changes, no fever, no sleep disturbances Respiratory: No cough, no shortness of air, no recurring pulmonary infections Cardiovascular/peripheral vascular: No chest pain, no palpitations, no edema, no shortness of breath Gastrointestinal: No new onset incontinence, normal bowel movements reported Genitourinary: No new onset incontinence Musculoskeletal: Low back pain, bilateral leg numbness tingling Psychiatric: [Normal mood/affect] Neurological: [Denies weakness in extremities], [denies balance issues] Pain at rest (0-10 scale): 7 Objective Objective:: Physical Exam: General: Alert and oriented x3, no acute distress, pleasant and cooperative Lungs: Respirations even and unlabored, symmetrical chest expansion Eyes: PERRL Musculoskeletal: Flexion and extension of lumbar [spine] somewhat guarded secondary to pain, [antalgic gait noted] positive leg raise Neurological: Speech clear, no gross sensory deficit Has patient had previous pain injection?: Yes Percent improvement in pain since last injection: 100% while numb Conservative treatment options previously tried: Home exercise plan Length of treatment: Longer than 12 weeks Meds Home Medications and Allergies Home Medications ?Medication ?Instructions ?Recorded ?Confirmed ?Type cholecalciferol (vitamin D3) 25 1,000 unit PO DAILY 07/05/17 11/01/24 History mcg (1,000 unit) capsule metoprolol succinate 100 mg 100 mg PO DAILY 07/05/17 11/01/24 History tablet,extended release 24 hr (Toprol XL) valsartan 80 mg tablet (Diovan) 80 mg PO DAILY 07/05/17 11/01/24 History evolocumab 140 mg/mL subcutaneous 140 mg SQ Q2W 07/06/17 11/01/24 History pen injector (Anthony Sidhu) clopidogrel 75 mg tablet 75 mg PO DAILY 10/06/22 11/01/24 History gabapentin 300 mg capsule 300 mg PO BID 10/06/22 11/01/24 History empagliflozin 10 mg tablet 10 mg PO DAILY 02/14/24 11/01/24 History (Jardiance) aspirin 81 mg tablet,delayed 81 mg PO DAILY 03/27/24 11/01/24 History release (Adult Low Dose Aspirin) amoxicillin 875 mg-potassium 1 tab PO Q12H #14 tabs 03/30/24 11/01/24 Rx clavulanate 125 mg tablet tramadol 50 mg tablet 50 mg PO DAILYP PRN Pain (Scale 06/22/24 11/01/24 Rx Score 1-6) #30 tabs methocarbamol 500 mg tablet 500 mg PO TID #42 tabs 05/19/25 07/09/25 Rx New Prescriptions to Start Prescriptions: Allergies Allergy/AdvReac Type Severity Reaction Status Date / Time azithromycin (AZITHROMYCIN) Allergy Unknown Verified 03/27/24 08:54 Penicillins (PENICILLINS) Allergy Unknown Verified 03/27/24 08:54 cefdinir Allergy Verified 03/27/24 08:54 morphine (MORPHINE) AdvReac Unknown Nausea Verified 03/27/24 08:54 Assessment and Plan *Assessment and plan (1) Degenerative disc disease, lumbar: Status: Acute Category: Medical Code(s): M51.369 - Other intervertebral disc degeneration, lumbar region without mention of lumbar back pain or lower extremity pain (2) Lumbar radiculopathy: Status: Acute Category: Medical Code(s): M54.16 - Radiculopathy, lumbar region (3) Spinal stenosis, lumbar region with neurogenic claudication: Status: Acute Category: Medical Code(s): M48.062 - Spinal stenosis, lumbar region with neurogenic claudication Plan Patient is experiencing worsening pain in his low back with numbness and tingling into his lower extremities. Patient did have limited range of motion of his lumbar spine with a positive leg raise. I did discuss with patient that I do believe they would benefit from a lumbar epidural steroid injection. Risk and benefits were discussed with patient and the patient would like to proceed forward with this plan of care. Patient is on Plavix written by Dr. Swanson's office. We will reach out to this provider and confirm he can stop this medication prior to this injection.. Patient has tried and failed conservative therapy including oral medications, heat and ice, topicals and continued at home stretching exercise for longer than 12 weeks between injections. Patient has had chronic back pain for longer than 6 months. Patient is describing the pain radiating down the back of his lower calves which is consistent with the L5-S1 dermatome. I have recommended that we do the epidural at this level. We did also discuss at length regarding his previous pain that he has seemed to get significant improvement of his prior complaints of pain with prolonged sitting or standing. I did certified genetic counselor him that I do believe he has multiple pain areas including chronic sacroiliitis and degenerative disc disease with spinal stenosis. Patient's biggest complaints are appropriate for stenosis with neurogenic claudication symptoms. Patient did previously have a lumbar epidural back in June that provided 100% relief and lasted longer than 3 months. I will also make sure the patient does have refills on his muscle relaxer and tramadol. We will schedule the patient for an LESI L5-S1 under fluoroscopy. Patient has been instructed to contact the clinic with any concerns before the next appointment. Dr. Ramirez has reviewed this note and agrees with this plan of care. This note was dictated using voice recognition software and make contain errors or omissions. All injections are used with Lidocaine, Bupivacaine and dexamethasone. Occasionally urine drug screen is needed to verify patient's compliance with our office pain contract. This is ordered based off specific treatments related to chronic pain with the potential to abuse certain medications.
[2024-11-01 15:42] VITALS: BP 112/73; PULSE 66; RESP 14; O2SAT 94; BMI 28.3
== END 2024-11-01 23:59 | disposition home or self-care (01) ==
PROVIDERS: PCP Family Medicine; Visit Provider Nurse Practitioner Family
DX: M48.062 Spinal stenosis, lumbar region with neurogenic claudication (principal); Z79.891 Long term (current) use of opiate analgesic; Z79.899 Other long term (current) drug therapy
CPT/HCPCS: 99212; G0463

== ENCOUNTER 2024-12-05 10:44 | Day surgery (SDC) | payer MEDICARE, SELFPAY ==
[2024-12-05 10:58] VITALS: BP 113/65; PULSE 58; RESP 16; O2SAT 94; BMI 27.9
--- NOTE | 2024-12-05 11:30 | EXP.PAIN.PRO ---
Procedure Date: 12/05/24 Time: 11:30 Anesthesiologist:: Conor Cordon CRNA Complications:: None Pre-procedure Diagnosis:: Degenerative disc lumbar spine multilevels. Lumbar radiculopathy. Lumbar spondylosis. Multilevel lumbar facet arthropathy. Lumbar postlaminectomy syndrome. Post-procedure Diagnosis:: Same. Indications for Procedure:: Patient is a pleasant 74-year-old male who comes our clinic today for L5-S1 lumbar epidural steroid injection. Patient describes minimal lumbar back pain. However, patient is reporting debilitating bilateral posterior leg radicular symptoms to the ankle. Ambulating increases pain significantly. He rates his pain today 1/10 while sitting. 10/10 while standing. Procedure Details:: Procedure: Lumbar epidural steroid injection under fluoroscopy Informed consent was obtained and the risks and benefits of the procedure were explained to the patient. The patient was taken to the procedure room and noninvasive monitors placed, including noninvasive blood pressure cuff and pulse oximeter. The back was viewed using C-arm Fluoroscopy and prepped using Chloraprep as a cleansing solution and the L5-S1 interspace was palpated. Skin and subcutaneous tissues were anesthetized using lidocaine 1.5% and a 25-gauge needle. After this, an 18-gauge Touhy epidural needle was placed into the L5-S1 interspace and advanced using fluoroscopic guidance and loss of resistance to air until the epidural space was encountered. After confirmation of needle placement in the epidural space, with dye, a solution containing normal saline, 3 mL and dexamethasone 10 mg were incrementally injected into the lumbar epidural space. The patient tolerated the procedure well with no complications. The patient was observed in the Pain Clinic and then discharged home neurologically intact. Plan and Disposition:: Patient was discharged without incident.
[2024-12-05 11:31] VITALS: BP 121/68; PULSE 66; RESP 18; O2SAT 94
[2024-12-05] MEDS: DEXAMETHASONE 10MG/ML 1ML VIAL 10 MG (12:07)
[2024-12-05 12:08] VITALS: BP 116/60; PULSE 54; RESP 18; O2SAT 94
[2024-12-05 12:43] VITALS: BP 116/60; PULSE 54; RESP 18; O2SAT 94
== END 2024-12-05 11:31 | disposition home or self-care (01) ==
PROVIDERS: PCP Family Medicine; Visit Provider Nurse Anesthetist, Certified Registered
DX: M51.16 Intervertebral disc disorders with radiculopathy, lumbar region (principal); M47.26 Other spondylosis with radiculopathy, lumbar region; M96.1 Postlaminectomy syndrome, not elsewhere classified; I25.10 Atherosclerotic heart disease of native coronary artery without angina pectoris; Z86.73 Personal history of transient ischemic attack (TIA), and cerebral infarction without residual deficits; E78.5 Hyperlipidemia, unspecified; I11.9 Hypertensive heart disease without heart failure; E66.9 Obesity, unspecified; Z68.28 Body mass index [BMI] 28.0-28.9, adult; Z87.891 Personal history of nicotine dependence; Z88.1 Allergy status to other antibiotic agents; Z88.5 Allergy status to narcotic agent; Z88.0 Allergy status to penicillin; Z88.8 Allergy status to other drugs, medicaments and biological substances; Z79.02 Long term (current) use of antithrombotics/antiplatelets; Z79.2 Long term (current) use of antibiotics; Z79.899 Other long term (current) drug therapy
CPT/HCPCS: 64483; J1100

== ENCOUNTER 2025-01-04 09:52 | Outpatient (CLI) | payer MEDICARE, SELFPAY ==
--- NOTE | 2025-01-04 09:57 | XR_ITS ---
FINAL REPORT CLINICAL HISTORY: ddd lumbar, back pain x 1.5 years FINDINGS: AP and lateral views of the lumbar spine were obtained. There is no prior exam available for comparison. There are postoperative changes from posterior fusion of L4-5. The hardware appears intact. There is very mild retrolisthesis of L2 on L3. Alignment is otherwise within normal limits. Vertebral body height is preserved. There is multilevel degenerative disc disease, most pronounced at L2-3. No acute paraspinal abnormality. IMPRESSION: Postoperative and degenerative changes without acute osseous abnormality. Authenticated and ERN
== END 2025-01-04 23:59 | disposition home or self-care (01) ==
LOC: RAD 09:54
PROVIDERS: PCP Family Medicine; Visit Provider Nurse Practitioner Family
DX: M47.816 Spondylosis without myelopathy or radiculopathy, lumbar region (principal); M51.369 Other intervertebral disc degeneration, lumbar region without mention of lumbar back pain or lower extremity pain; Z98.1 Arthrodesis status
CPT/HCPCS: 72100

== ENCOUNTER 2025-01-12 06:52 | Outpatient (CLI) | payer MEDICARE, SELFPAY ==
--- OUTSIDE RECORDS SUMMARY | 2025-01-12 06:53 | XMS_ITS | Clinical Summary ---
Author Organization Healthcare [facility] [place] [address] Care Team Providers Care High Lift Operator Name Role Phone Unavailable Primary Care Provider [...] Screening 1950 [facility]-Medicare Annual Wellness (AWV) 1950 [facility]-Infant/Child/Adol SDOH Screenings 1950 [facility]-Obesity Intervention 1956 [facility]- SDOH Screenings 1968 [facility]-Adult SDOH Screenings 1968 CT Colonography 08/25/1995 Colonoscopy 08/25/1995 FIT-DNA 08/25/1995 FIT 08/25/1995 FOBT 08/25/1995 Sigmoidoscopy 08/25/1995 [facility]-Colorectal Cancer Screening 08/25/1995 [facility]-DTaP,Tdap,and Td Vaccines (1 - Tdap) 06/29/1996 06/28/1996 [facility]-Zoster Vaccines (1 of 2) 2000 [id number] Vaccine ( - season) 2024 03/12/2021, 07/03/2020, 06/05/2020 [facility]-Influenza Vaccine (#1) 12/25/202403/12, [...] patient's age to complete this topic Insurance [facility] MEDICARE
--- OUTSIDE RECORDS SUMMARY | 2025-01-12 06:53 | XMS_ITS | Clinical Summary ---
Author Organization [facility] Address [address] [place] [address] Care Team Providers Care Chemist Inorganic Name Role Phone Luis Swanson MD Primary Care Provider + [phone] Allergies Active Allergy Reactions Criticality Noted Date Comments Azithromycin Rash Low 02/16/2022 Cefdinir Diarrhea Low 11/20/2022 Penicillins Rash Medium 10/17/2020 Medications metoprolol succinate XL (TOPROL-XL) 100 MG 24 hr tablet 1 tablet Every Night. 1 Active clopidogrel (PLAVIX) 75 MG tablet Take 1 tablet by mouth Daily. Okay to stop 5 days before surgery. 1 Active valsartan (DIOVAN) 80 MG tablet Take 100 mg by mouth Daily. 1 Active gabapentin (NEURONTIN) 400 MG capsule Take 1 capsule by mouth. 1 Active Evolocumab (Repatha) solution prefilled syringe injection Inject 1 mL under the skin into the appropriate area as directed Every 14 (Fourteen) Days. Active Cyanocobalamin (VITAMIN B 12 PO) Take 1,000 mcg by mouth Daily. Active vitamin D3 125 MCG (5000 UT) capsule capsule Take 1 capsule by mouth Daily. Active traMADol (Ultram) 50 MG tabletIndicatio ns:Kidney stones Take 1 tablet by mouth Every 6 (Six) Hours As Needed for Severe Pain. 12 tablet 01/12/2023 2:53 PM EDT 3 Active Additional Information Patient not taking.Reported on 09/20/2024 Active Problems Problem Noted Date Diagnosed Date Left nephrolithiasis 12/10/2022 Kidney stones 10/21/2022 Chronic low back pain 10/17/2020 Immunizations Immunization Administration Dates Next Due COVID-19 (MODERNA) 1st,2nd,3 rd Dose Monovalent 03/12/2021,07/03/2020,06/05/2020 Flublok 18+yrs 02/20/2019 Fluzone High-Dose 65+YRS 04/12/2018,02/15/2017 Fluzone High-Dose 65+yrs 03/12/2021 Pneumococcal Conjugate 13-Valent (PCV13) 019 Pneumococcal Conjugate 20-Valent (PCV20) 023 Td (TDVAX) 06/28/1996 Family History Relation Name Status Comments Father Mother Social History Tobacco Use Types Packs/Day Years Used Date Smoking Tobacco: Former Cigarettes 0 04/26/1964 - 04/26/1974 Pipe 1964 - 1974 Passive Smoke Exposure: Past Smokeless Tobacco: Never Tobacco Cessation:Counseling Given: Not Answered Alcohol Use Standard Drinks/Week Comments Never 0 (1 standard drink = 0.6 oz pur e alcohol) AUDIT-C Answer Date Recorded Q1: How often do you have a drink containing alc ohol? Never 10/17/2020 Average Number of Drinks Not on file 021 Frequency of Binge Drinking Not on file 09/25 Abuse Screen Answer Date Recorded Feels Unsafe at Home or Work/School no 01/12/2023 Feels Threatened by Someone no 12/25 Does Anyone Try to Keep You From Having Contact with Others or Doing Things Outside Your Home? no 01/12/2023 Physical Signs of Abuse Present no 01/12/2023 Housing Stability Answer Date Recorded Current Living Arrangements home 12/25 Potentially Unsafe Housing Conditions Not on jenni e 01/12/2023 Disabilities Answer Date Recorded Difficulty Concentrating, Remembering or Making Decisions no 01/12/2023 Difficulty Managing Errands Independently no 01/12/2023 Education Answer Date Recorded Help with school or training? Not on file Preferred Language Azerbaijani 01/05/2023 Sex and Gender Information Value Date Recorded Sex Assigned at Male 08/23/2024 4:15 PM EDT Legal Sex Male 10:12 AM EDT Gender Identity Not on file Sexual Orientation Not on file Last Filed Vital Signs Vital Sign Reading Time Taken Comments Blood Pressure 118/74 02/24/2023 11:23 AM EDT Pulse 85 02/24/2023 11:23 AM EDT Temperature 36.6 C (97.9 F) 01/12/2023 2:15 PM EDT Respiratory Rate 16 01/12/2023 2:30 PM EDT Oxygen Saturation 98% 02/24/2023 11:23 AM EDT Inhaled Oxygen Concentration - - Weight 89.4 kg (197 lb) 09/20/2024 2:00 PM EDT Height 175.3 cm (5' 9.02 ) 09/20/2024 2:00 PM ED T Body Mass Index 29.08 09/20/2024 2:00 PM EDT Plan of Treatment Upcoming Encounters Date Type Department Care Team (Late st Contact Info) Description 03/28/2025 8:40 AM EST Office Visit [facility] [address] [facility] [address] Bryan Shrestha MD [address] [address] Health Maintenance Due Date Last Done Comments COLOGUARD 08/25/1995 COLON CANCER SCREENING 5 YEA R SIGMOIDOSCOPY 08/25/1995 COLONOSCOPY 08/25/1995 COLORECTAL CANCER SCREENING 08/25/1995 CT COLONOGRAPHY 08/25/1995 FECAL OCCULT BLOOD TEST 08/25/1995 FIT Testing (1 year) 08/25/1995 ZOSTER VACCINE (1 of 2) 2000 TDAP/TD VACCINES (2 - Tdap) 06/28/2006 06/28/1996 ANNUAL WELLNESS VISIT 10/17/2020 HEPATITIS C SCREENING 10/17/2020 INFLUENZA VACCINE 11/24/2024 02/03/2024, , 03/12/2021, Additional history exists COVID-19 Vaccine ( - 2024-2 6 season) 2024 03/12/2021, 07/03/2020, 06/05/2020 Pneumococcal Vaccine 50+ Completed 05/11/2022, 01/25 AAA SCREEN ONCE Completed 02/10/2024 Medical Devices Implanted Type Area Spoke Maker Device Identifier Shelf Expiration Date Model / Serial / Lot Stnt Percuflx No Gw 6x26 - [id number] Implanted:Qty: 1 on 11/26/2022 by Bryan Shrestha MD at [facility] Stent Right: Ureter [employer] 07/03/2025 [id number] 0 / / [id number] Stnt Percuflx No Gw 6x26 - [id number] Implanted:Qty: 1 on 11/26/2022 by Bryan Shrestha MD at [facility] Stent Left: Ureter [employer] 07/03/2025 [id number] 0 / / [id number] Stnt Percuflx No Gw 6x24 - [id number] Implanted:Qty: 1 on 12/10/2022 by Bryan Shrestha MD at [facility] Stent Left: Ureter [employer] 07/03/2025 [id number] 0 / / [id number] Stnt Percuflx No Gw 6x24 - [id number] Implanted:Qty: 1 on 01/12/2023 by Bryan Shrestha MD at [facility] Stent Left: Ureter [employer] 07/12/2025 [id number] 0 / / [id number] Coronary Stents X5 Description:3 in 2011, 2 in 2017 Procedures Procedure Name Priority Date/Time Associated Diagnosis Comments CT ABDOMEN PELVIS W WO CONTRAST Routine 02/10/2024 10:08 AM EDT Renal cyst, right from Last 3 Months or Most Recently Relevant to Health Maintenance Results * CT Abdomen Pelvis With & Without Contrast (02/10/2024 10:08 AM EDT) Anatomical Region Laterality Modality Abdomen, Pelvis N/A Computed Tomogra phy 02/11/2024 12:4 8 PM EDT Impressions 02/11/2024 1:04 PM EDT Impression: 1. Exophytic right renal lesion measuring 2.5 cm. There does appear to be some enhancement noted on venous and delayed phase imaging excluding proteinaceous or hemorrhagic cyst. This could represent a renal oncocytoma and shows no significant interval growth compared to prior CT; however, recommend consideration for a follow-up renal MRI to see if the lesion can be further characterized. 2. Left cortical renal atrophy with benign cysts and staghorn calculus. Electronically Signed: Kelly Ferrari MD 02/11/2024 1:04 PM EDT Workstation ID: [id number] [place] 02/11/2024 1:[address] ABDOMEN PELVIS W WO CONTRAST Date of Exam: 02/10/2024 9:34 AM EDT Indication: . Renal cyst and back pain Comparison: Renal ultrasound 08/23/[address] abdomen and pelvis 10/10/2022 Technique: Axial CT images were obtained of the abdomen and pelvis before and after the uneventful intravenous administration of 85 mL Isovue-370. Sagittal and coronal reconstructions were performed. Automated exposure control and iterative reconstruction methods were used. Findings: LUNG BASES: Coronary artery calcifications are noted. There is a sebaceous cyst in the anterior left chest wall left of midline measuring 2.2 cm. LIVER: The liver has decreased attenuation compatible with steatosis. BILIARY/GALLBLADDER: Unremarkable SPLEEN: Unremarkable PANCREAS: Unremarkable ADRENAL: Unremarkable KIDNEYS: Evaluation of the right kidney shows no evidence for hydronephrosis or hydroureter. No nephrolithiasis or ureterolithiasis. Along the posterior cortex there is a lesion which measures 2.5 x 2.3 cm (images 71 of series 456 and 8). On initial noncontrast imaging the lesion is dense measuring 33 Hounsfield units. No significant enhancement noted on arterial phase imaging with Hounsfield units measuring up to 37.5; however on venous and delayed sequences there does appear to be enhancement with Hounsfield unit measurement increasing to 58. A few cortical based subcentimeter cystic lesions are suspected. The left kidney has cortical renal thinning and atrophy. There are several calculi with a staghorn calculus in the lower pole measuring 1.6 cm. There is a cyst along the upper pole which measures 2.8 cm and a cyst projecting from the lower pole measuring 9.4 cm. No left renal obstructive uropathy. GASTROINTESTINAL/MESENTERY: No evidence of obstruction nor inflammation. The appendix is normal in caliber and contains gas. MESENTERIC VESSELS: Patent. AORTA/IVC: Normal caliber. RETROPERITONEUM/LYMPH NODES: Unremarkable REPRODUCTIVE: The prostate is prominent measuring 5.1 cm. BLADDER: Unremarkable OSSEUS STRUCTURES: There is surgical fusion at L4/5 with bilateral transpedicular screws and anterior cage device. Procedure Note Kelly Ferrari MD - 02/11/2024 CT ABDOMEN PELVIS W WO CONTRAST Date of Exam: 02/10/2024 9:34 AM EDT Indication: . Renal cyst and back pain Comparison: Renal ultrasound 08/23/[address] abdomen and pelvis10/10/2022 Technique: Axial CT images were obtained of the abdomen and pelvis beforeand after the uneventful intravenous administration of 85 mL Isovue-370.Sagittal and coronal reconstructions were performed. Automated exposurecontrol and iterative reconstruction methods were used. Findings: LUNG BASES: Coronary artery calcifications are noted. There is a sebaceouscyst in the anterior left chest wall left of midline measuring 2.2 cm. LIVER: The liver has decreased attenuation compatible with steatosis. BILIARY/GALLBLADDER: Unremarkable SPLEEN: Unremarkable PANCREAS: Unremarkable ADRENAL: Unremarkable KIDNEYS: Evaluation of the right kidney shows no evidence forhydronephrosis or hydroureter. No nephrolithiasis or ureterolithiasis.Along the posterior cortex there is a lesion which measures 2.5 x 2.3 cm(images 71 of series 456 and 8). On initial noncontrast imaging the lesion is dense measuring 33 Hounsfield units. Nosignificant enhancement noted on arterial phase imaging with Hounsfieldunits measuring up to 37.5; however on venous and delayed sequences theredoes appear to be enhancement with Hounsfield unit measurement increasing to 58. A few cortical basedsubcentimeter cystic lesions are suspected. The left kidney has corticalrenal thinning and atrophy. There are several calculi with a staghorncalculus in the lower pole measuring 1.6 cm. There is a cyst along the upper pole which measures 2.8 cm and a cystprojecting from the lower pole measuring 9.4 cm. No left renal obstructiveuropathy. GASTROINTESTINAL/MESENTERY: No evidence of obstruction nor inflammation.The appendix is normal in caliber and contains gas. MESENTERIC VESSELS: Patent. AORTA/IVC: Normal caliber. RETROPERITONEUM/LYMPH NODES: Unremarkable REPRODUCTIVE: The prostate is prominent measuring 5.1 cm. BLADDER: Unremarkable OSSEUS STRUCTURES: There is surgical fusion at L4/5 with bilateraltranspedicular screws and anterior cage device. IMPRESSION: Impression: 1. Exophytic right renal lesion measuring 2.5 cm. There does appear to besome enhancement noted on venous and delayed phase imaging excludingproteinaceous or hemorrhagic cyst. This could represent a renal oncocytomaand shows no significant interval growth compared to prior CT; however, recommend consideration for afollow-up renal MRI to see if the lesion can be further characterized. 2. Left cortical renal atrophy with benign cysts and staghorn calculus. Electronically Signed: Kelly Ferrari MD 02/11/2024 1:04 PM EDT Workstation ID: [id number] Bryan Shrestha MD IMG CT ORDERABLES Final Result from Last 3 Months or Most Recently Relevant to Health Maintenance Insurance [facility] Medicare Advantage [employer] PPO Care Teams Chemist Inorganic Relationship Specialty Start Date End Date Luis Swanson MD [address] [place] [id number] PCP - General Family Medicine 09/12/20
--- OUTSIDE RECORDS SUMMARY | 2025-01-12 06:54 | XMS_ITS | Clinical Summary ---
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 Hypertension [place] (myocardial infarction) (HCC) Family History Medical History [...] Zoster (1 of 2) 2000 COVID-19 Vaccine (1 - 2023-2 5 season) 2024 Influenza Vaccine (#1) 2024 Hepatitis B Vaccine Aged Out No longe r eligible based on patient's age to complete this topic Meningococcal B Vaccine Aged Out No l onger eligible based on patient's age to complete this [place] [address] [place] [employer] MEDICARE PART A HB on file ANTH PPO [facility] 3RD FLOOR ATTN: WORK[employer] CLAIM [facility] [address] [employer] Member Subscriber Plan / Payer (Ef fective 2019-Present) Name:Traci Greer Member ID:[id number] Relation to Subscriber:Self Name:Traci Greer Subscriber ID:[id number] Payer ID:Not on file Type:Not on file Address: [place] [address] Care Teams Retention Specialist Relationship Specialty Start Date End Date Luis Swanson MD [address] [place] [id number] PCP - General Family Medicine 11/30/15
--- NOTE | 2025-01-12 07:00 | CT_ITS ---
FINAL REPORT TECHNIQUE: Thin section noncontrast axial CT with sagittal reconstructions was performed of the lumbar spine. This study was performed with techniques to keep radiation doses as low as reasonably achievable, (ALARA). Individualized dose reduction techniques using automated exposure control or adjustment of mA and/or kV according to the patient's size were employed. CLINICAL HISTORY: low back pain COMPARISON: None FINDINGS: CT LUMBAR SPINE No fracture is present. Normal vertebral height. Postoperative changes from fusion L4-5. Normal alignment. T12-L1: Minimal annular disc bulge without canal stenosis. L1-L2: Mild annular disc bulge without canal stenosis. L2-L3: Moderate to large annular disc bulge. Moderate central canal stenosis. Moderate bilateral neural foraminal narrowing. L3-L4: Moderate to large annular disc bulge. Facet overgrowth. Severe central canal stenosis and neural foraminal narrowing. L4-L5: Postoperative changes from fusion and left laminectomy. No bony canal stenosis. Severe bilateral neural foraminal narrowing. L5-S1: Minimal annular disc bulge. Moderate facet overgrowth. Severe bilateral neural foraminal narrowing. IMPRESSION: Multilevel advanced degenerative changes as above. Canal stenosis most pronounced at L2-3 and L3-4. Reviewed, Interpreted and Dictated by Roney Miller MD Transcribed by Josephine Zhou Authenticated and [facility]
== END 2025-01-12 23:59 | disposition home or self-care (01) ==
LOC: RAD 06:52
PROVIDERS: PCP Family Medicine; Visit Provider Nurse Practitioner Family
DX: M47.26 Other spondylosis with radiculopathy, lumbar region (principal); M51.16 Intervertebral disc disorders with radiculopathy, lumbar region; M48.061 Spinal stenosis, lumbar region without neurogenic claudication
CPT/HCPCS: 72131